=== PATIENT | male | born 1950 | race Native Hawaiian/Other Pacific Islander ===

== ENCOUNTER → 2017-09-03 | Outpatient (CLI) | payer BC ==
--- NOTE | 2017-09-04 09:18 | MR ---
EXAMINATION TYPE: MR shoulder LT wo con DATE OF EXAM: 09/03/2017 COMPARISON: NONE HISTORY: 67-year-old male with left Shoulder Pain with Limited ROM X6 months TECHNIQUE: Multiplanar, multisequence imaging of the left shoulder is performed without contrast. FINDINGS: The intracapsular portion of the long head biceps tendon is not visualized and is not evaluated. The extracapsular portion is seen from the level of the lower bicipital groove. The majority of the subscapularis tendon appears torn. The inferior third fibers are heterogeneous, t hickened, but present. Mild to moderate fatty infiltration of the subscapularis muscle belly. There is moderate to severe degenerative joint space narrowing with marginal spurring and capsular hy pertrophy at the acromioclavicular joint. There is abutment of the humeral head with the undersurface of the acromion without any evidence for stress fracture at this time. There is a massive full thickness tear involving the entire supraspinatus and infraspinatus tendons. Stump is retracted variably with some of the supraspinatus tendon fibers retracted back by 6 cm to th e level of the superior glenoid but some of the infraspinatus tendon fibers retracted even more media lly to the level of the scapular neck approximately 7 cm. Moderate fatty infiltration of the supraspinatus muscle belly and more moderate to severe fatty infil tration of the infraspinatus muscle belly. There is also fatty atrophy of the teres minor. No mass lesion identified in the quadrilateral space. There is a moderate-sized glenohumeral joint effusion extending into the superior subscapularis reces s. Degenerative spurring is present in the glenohumeral joint with mild cartilage thinning and irregu larity along the superior glenoid and inferior humeral head. No Hill-Sachs deformity or os acromiale. No suspicious bone marrow replacement. IMPRESSION: 1. Massive full thickness rotator cuff tears of the entire supraspinatus and infraspinatus tendons. V ariable retraction measuring up to 7 cm back to the scapular neck. A significant portion of the subsc apularis tendon is also involved with tendinotic but intact inferior third fibers. 2. Mild to moderate fatty atrophy of the subscapularis muscle, moderate involving the supraspinatus m uscle, and moderate to severe of the infraspinatus muscle. 3. Additional fatty atrophy of the teres minor could reflect tear to involve the teres minor as well or more likely quadrilateral space syndrome as some attaching fibers seen to be present. 4. Secondary glenohumeral joint instability with very early changes of rotator cuff arthropathy. 5. The intracapsular portion of the long head biceps tendon is not visualized and is not evaluated. It could be torn and scarred down in the bicipital groove. 6. Moderate to severe AC joint OA.
== END | disposition home or self-care (01) ==
LOC: RADMRIMAIN 15:23
PROVIDERS: ATTEND Family Medicine
DX: M67.912 Unspecified disorder of synovium and tendon, left shoulder (principal); M75.122 Complete rotator cuff tear or rupture of left shoulder, not specified as traumatic; M62.512 Muscle wasting and atrophy, not elsewhere classified, left shoulder; M12.812 Other specific arthropathies, not elsewhere classified, left shoulder

== ENCOUNTER 2021-10-12 19:14 | Inpatient (IN) | payer BC, MEDICARE ==
[2021-10-12] MEDS ORDERED: methylPREDNISolone SOD SUCCI 125 MG/2 ML VIAL IV STA (19:27)
[2021-10-12] MEDS ORDERED: MAGNESIUM SULFATE-D5W PMX 1 GM in DEXTROSE/WATER 1 100ML.BAG IVPB STA (19:27)
[2021-10-12] MEDS ORDERED: IPRATROPIUM-ALBUTEROL 3 ML NEB INHALATION STA (19:27)
--- NOTE | 2021-10-12 19:52 | XR ---
EXAMINATION TYPE: XR chest 1V portable DATE OF EXAM: 10/12/2021 COMPARISON: NONE HISTORY: Short of breath TECHNIQUE: Single view FINDINGS: There is a large left-sided pneumothorax. Trachea is midline. Right lung is clear. Heart si ze is normal. The mediastinum is normal. IMPRESSION: Large left-sided pneumothorax without evidence of tension. Exam was discussed with emergency room attending staff at 8:00 PM.
[2021-10-12] MEDS ORDERED: IPRATROPIUM-ALBUTEROL 3 ML NEB INHALATION ONE (20:00)
[2021-10-12] MEDS ORDERED: LIDOCAINE 1% INJ 10MG/ML (5 ML VIAL-PF) SQ STA (20:06)
[2021-10-12] MEDS ORDERED: KETAMINE 10 MG/ML 20 ML VIAL IV ONE (20:06)
--- NOTE | 2021-10-12 20:17 | XR ---
EXAMINATION TYPE: XR chest 1V DATE OF EXAM: 10/12/2021 COMPARISON: 10/12/2021 HISTORY: Pneumothorax TECHNIQUE: Single lateral view FINDINGS: Lateral view shows normal heart size. No pleural fluid seen. I do not see definite anterior pneumothorax over the superior lung field. IMPRESSION: No definite anterior pneumothorax in the left upper lobe region.
[2021-10-12 20:37] LABS: INR 0.9 (<1.2); Prothrombin Time 10.2 sec (9.0-12.0)
[2021-10-12 20:39] LABS: Partial Thromboplastin Time 19.3 sec (22.0-30.0)
[2021-10-12] MEDS ORDERED: HYDROmorphone 1 MG/ML 1 ML SYRINGE IVP STA (21:11)
--- NOTE | 2021-10-12 21:18 | XR ---
EXAMINATION TYPE: XR chest 1V portable DATE OF EXAM: 10/12/2021 COMPARISON: Today HISTORY: Chest tube TECHNIQUE: Single view FINDINGS: There is left chest tube over the left lower lung field in good position. There is appears to be complete expansion of the left lung. There is soft tissue air on the left chest wall. Right jessi g is clear. Heart is normal. IMPRESSION: Complete clearing of the left-sided pneumothorax. There is some residual atelectasis left lower lobe.
[2021-10-12] MEDS ORDERED: NALOXONE 0.4 MG/ML 1 ML VIAL IV PRN (21:37)
--- NOTE | 2021-10-12 21:45 | ED ---
General Adult HPI - General Chief complaint: Shortness of Breath Stated complaint: ALEXA Time Seen by Provider: 10/12/21 19:15 Source: patient, EMS, RN notes reviewed, old records reviewed Mode of arrival: EMS Limitations: no limitations - History of Present Illness Initial comments: Patient is a 71-year-old male with past medical history remarkable for chemical pneumonitis, asthma who presents emergency Department complaining of a persistent asthma exacerbation. The last 3 weeks, patient has been having intermittent episodes of difficulty in breathing. States he does seem to be a consistent asthma exacerbation at this time. He is seen his primary care doctor and obtained breathing treatments, steroids, antibiotics without much improvement. Had additional worsening shortness of breath over the last 2-3 days which can't get him to call EMS and presents emergency department today for evaluation. He has not yet obtained a chest x-ray over this last few weeks. Denies any fevers, chills. Endorses a nonproductive cough. Denies nausea or vo miting. Denies upper respiratory symptoms. Presents for further evaluation of this time. - Related Data Home Medications Medication Instructions Recorded Confirmed ALPRAZolam [Xanax] 0.5 mg PO TID PRN 10/12/21 10/12/21 Azithromycin [Zithromax Z-pack (6 See Taper PO DIRECTED 10/12/21 10/12/21 tabs)] Hydroxyurea [Hydrea] 500 mg PO BID 10/12/21 10/12/21 Ipratropium/Albuter 20-100Mcg 1 puff INHALATION RT-QID 10/12/21 10/12/21 [Combivent Respimat 20-100Mcg Inhaler] Tamsulosin HCl [Flomax] 0.8 mg PO DAILY 10/12/21 10/12/21 Allergies Allergy/AdvReac Type Severity Reaction Status Date / Time No Known Allergies Allergy Verified 10/12/21 21:44 Review of Systems ROS Statement: Those systems with pertinent positive or pertinent negative responses have been documented in the HPI. Review of Systems: CONST: Denies fever EYES: Denies blurry vision ENT: Denies nasal congestion C/V: Denies Chest pain RESP: Endorses shortness of breath GI: Denies abdominal pain : Denies dysuria SKIN: Denies rash. MSK: Denies joint pain. NEURO: Denies headache ROS Other: All systems not noted in ROS Statement are negative. Past Medical History Past Medical History: Asthma History of Any Multi-Drug Resistant Organisms: None Reported Past Surgical History: No Surgical Hx Reported Past Psychological History: Anxiety Smoking Status: Former smoker Past Alcohol Use History: Occasional Past Drug Use History: None Reported General Exam - General Exam Comments Initial Comments: General: Appears in mild respiratory distress. HEAD: Normal with no signs of head trauma. EYES: PERRLA, EOMI, conjunctiva normal, no discharge. ENT: Hearing grossly intact, normal oropharynx. RESPIRATORY: Bilateral end expiratory wheezing. Reduced breath sounds in the left lower lung field. Mild increased work of breathing. C/V: Mild tachycardia. S1 and S2 auscultated. Peripheral pulses 2+ and intact throughout. ABD: Abd is soft, nontender, nondistended EXT: Normal range of motion, no obvious deformity SKIN: No rashes or lesions observed on exposed skin. NEURO: Alert and oriented 4. No focal deficits. Limitations: no limitations Course Vital Signs 10/12/21 10/12/21 10/12/21 19:19 20:20 20:34 Temperature 98.6 F Pulse Rate 114 H 104 H 103 H Respiratory 24 Rate Blood Pressure 127/102 O2 Sat by Pulse 96 Oximetry 10/12/21 10/12/21 10/12/21 20:35 20:40 20:45 Temperature Pulse Rate 102 H 102 H Respiratory 26 H 18 18 Rate Blood Pressure 151/99 160/109 168/122 O2 Sat by Pulse 98 100 98 Oximetry 10/12/21 10/12/21 10/12/21 20:50 21:00 21:05 Temperature Pulse Rate 102 H 99 98 Respiratory 18 22 Rate Blood Pressure 138/99 146/100 149/97 O2 Sat by Pulse 99 98 99 Oximetry 10/12/21 10/12/21 10/12/21 21:10 21:25 21:40 Temperature Pulse Rate 103 H 85 85 Respiratory 16 16 16 Rate Blood Pressure 154/77 114/78 130/75 O2 Sat by Pulse 100 95 98 Oximetry Procedures - [place] Protocol (Time Out) Procedure Performed:: Chest tube insertion with moderate sedation Performing Provider: Ibrahima Aceves Nurse: Jose Ramon Bhakta Respiratory Therapist: Danika Marc Patient Identification (2 identifiers required): Chart, Verbal, Arm Band Patient/Legal Assembler Unit has Confirmed: Identity, Procedure, Consent - Chest Tube Insertion Consent Obtained: written consent Side of Procedure: left Indication: Pneumothorax Placed on monitor/pulse oximetry: Yes Site Prep: Chloroprep, Sterile Drape Applied Local Anesthesia: Lidocaine 1% Insertion Site: 5th Intercostal Space, Midaxillary Scalpel: #10 Open into Pleural Space Using: Izzy Clamp Tube Size (British): 32 Returns: Air Sutured in Place: Yes Type of Suture: Nylon Dressing Applied: Petroleum Gauze, 4x4, Tape Attached to Suction: Yes Type of Suction: Pleuravac Repeat X-ray Results: Lung Inflated Patient Tolerated Procedure: well Complications: Pain - Procedural Sedation Procedural Sedation Start Time: 20:35 Procedural Sedation Stop Time: 21:05 Indications: other (chest tube insertion) ASA Class: I Mallampati Airway Score: 2 Preparation: color television console monitor applied, pulse oximeter, capnometry used, supplemental O2 applied, suction/airway equipment at bedside Ketamine: IV Ketamine Dose: 60 Complications: none Patient Tolerated Procedure: well Medical Decision Making - Medical Decision Making Based on the patient's presentation and physical exam, I'm suspicious of acute asthma exacerbation. Cannot rule out other cardiopulmonary etiology at this time. We will obtain a chest x-ray. Initially called for BiPAP and respiratory therapy to administer reading treatments. However on chest x-ray, patient does have what appears to be a spontaneous left pneumothorax. BiPAP was canceled. He'll still be administered IV Solu-Medrol, breathing treatment. I discussed the finding on the chest x-ray with the patient. He expressed understanding. He will require a chest tube at this time. There appears to be located inferiorly in the chest, over we will obtain a lateral x-ray to see if there is a pocket the superior anterior portion to place a thoravent. Based on the x- ray, there is not a [facility] Therefore patient will require a traditional left-sided chest tube. Basic labs will be obtained as well as influenza and Covid swabs. Screening EKG will be obtained, which showed sinus tachycardia without any ischemic process. Patient was moved to a trauma bay. At this time, we will place the left side chest tube. Patient will be also given procedural sedation with ketamine. Patient consented both treatments. Respiratory therapy was present for about dry. The procedure. Patient chandue rated the procedure well. A successful placement of left-sided chest. The CT additional procedure note for further details. Follow-up x-ray shows reexpansion the left lung. Chest tube was placed to wall suction via thoravent. There was a small air leak following placement. Patient's laboratory studies returned and were remarkable for mild leukocytosis of 12. Covid employer negative. Remainder the labs are unremarkable. I consulted cardiothoracic surgery, Dr. Nur and spoke with them on the phone. He was in agreement this plan. I spoke with the admitting team under Dr. Pineda who was in agreement this plan. [facility] is covering for Dr. Barclay at this time. After the patient. Vital signs are within normal limits. Respirations are improved. He was placed on pain medication. He'll be admitted to stepdown in stable condition. He was in agreement this plan. We will continue treatment with IV steroids as well as breathing treatments. - Lab Data Result diagrams: 10/12/21 21:32 Lab Results 10/12/21 10/12/21 10/12/21 Range/Units 20:06 21:32 21:32 PT 10.2 (9.0-12.0) sec INR 0.9 (<1.2) APTT 19.3 L (22.0-30.0) sec Sodium (137-145) mmol/L Potassium (3.5-5.1) mmol/L Chloride (98-107) mmol/L Carbon Dioxide (22-30) mmol/L Anion Gap mmol/L BUN (9-20) mg/dL Creatinine (0.66-1.25) mg/dL Est GFR (CKD-EPI)AfAm (>60 ml/min/1.73 sqM) Est GFR (CKD-EPI)NonAf (>60 ml/min/1.73 sqM) Glucose (74-99) mg/dL Calcium (8.4-10.2) mg/dL Total Bilirubin (0.2-1.3) mg/dL AST (17-59) U/L ALT (4-49) U/L Alkaline Phosphatase (38-126) U/L Total Protein (6.3-8.2) g/dL Albumin (3.5-5.0) g/dL Coronavirus (PCR) Not Detected (Not Detectd) Influenza Type A RNA Not Detected (Not Detectd) Influenza Type B (PCR) Not Detected (Not Detectd) 10/12/21 Range/Units 21:32 PT (9.0-12.0) sec INR (<1.2) APTT (22.0-30.0) sec Sodium 138 (137-145) mmol/L Potassium 4.4 (3.5-5.1) mmol/L Chloride 103 (98-107) mmol/L Carbon Dioxide 27 (22-30) mmol/L Anion Gap 8 mmol/L BUN 15 (9-20) mg/dL Creatinine 0.66 (0.66-1.25) mg/dL Est GFR (CKD-EPI)AfAm >90 (>60 ml/min/1.73 sqM) Est GFR (CKD-EPI)NonAf >90 (>60 ml/min/1.73 sqM) Glucose 123 H (74-99) mg/dL Calcium 8.5 (8.4-10.2) mg/dL Total Bilirubin 0.7 (0.2-1.3) mg/dL AST 21 (17-59) U/L ALT 23 (4-49) U/L Alkaline Phosphatase 73 (38-126) U/L Total Protein 6.8 (6.3-8.2) g/dL Albumin 3.9 (3.5-5.0) g/dL Coronavirus (PCR) (Not Detectd) Influenza Type A RNA (Not Detectd) Influenza Type B (PCR) (Not Detectd) - EKG Data -: EKG Interpreted by Me EKG Comments: 12-lead Electrocardiogram Interpretation Note EKG was reviewed and interpreted by myself. 12-lead ECG performed at 1934 is interpreted by me as revealing normal sinus rhythm at a rate of 113 beats per minute. [place] is normal. [place] interval is 118 ms, QRS duration is 87 ms, QTc is 381 ms.. There were no ST or T wave abnormalities to suggest myocardial ischemia or injury. R wave progression across the precordium was satisfactory. By my interpretation this EKG is non-diagnostic for acute ischemia. There is baseline artifact in lead V6. Disposition Clinical Impression: Asthma exacerbation, Spontaneous pneumothorax, Chest tube in place Disposition: ADMITTED IP TO THIS HOSP Condition: Stable Referrals: Elan Barclay MD [Primary Care Provider] - 1-2 days Time of Disposition: 21:50
[2021-10-12 21:49] LABS: ALT 23 U/L (4-49); AST 21 U/L (17-59); African American GFR (CKD) >90 (>60 ml/min/1.73 sqM); Albumin 3.9 g/dL (3.5-5.0); Alkaline Phosphatase 73 U/L (38-126); Anion Gap 8 mmol/L; Blood Urea Nitrogen 15 mg/dL (9-20); Calcium 8.5 mg/dL (8.4-10.2); Carbon Dioxide 27 mmol/L (22-30); Chloride 103 mmol/L (98-107); Glucose 123 mg/dL (74-99); Non-African American GFR(CKD) >90 (>60 ml/min/1.73 sqM); Potassium 4.4 mmol/L (3.5-5.1); Sodium 138 mmol/L (137-145); Total Bilirubin 0.7 mg/dL (0.2-1.3); Total Protein 6.8 g/dL (6.3-8.2)
[2021-10-12 21:57] LABS: Basophils % (A) 0 %; Eosinophils # (A) 0.1 k/uL (0-0.7); Eosinophils % (A) 1 %; HCT 47.9 % (39.0-53.0); HGB 15.8 gm/dL (13.0-17.5); Lymphocytes # (A) 1.3 k/uL (1.0-4.8); Lymphocytes % (A) 11 %; MCHC 32.9 g/dL (31.0-37.0); MCV 112.5 fL (80.0-100.0); Macrocytosis Marked; Mean Platelet Volume 7.8; Monocytes # (A) 1.1 k/uL (0-1.0); Monocytes % (A) 9 %; Neutrophils # (A) 9.3 k/uL (1.3-7.7); Neutrophils % (A) 78 %; Platelet Count 513 k/uL (150-450); RBC 4.26 m/uL (4.30-5.90); RDW 13.9 % (11.5-15.5)
[2021-10-12] MEDS ORDERED: methocarbamoL 750 MG TAB PO PRN (22:12)
[2021-10-12] MEDS: HYDROmorphone 1 MG/ML 1 ML SYRINGE IVP PRN (23:26)
[2021-10-12 23:31] LABS: Anisocytosis (M) Present
[2021-10-12] MEDS: IPRATROPIUM-ALBUTEROL 3 ML NEB INHALATION SCH (23:36)
[2021-10-13] MEDS: methylPREDNISolone SOD SUCCI 40 MG/ML 1 ML VIAL IV SCH ×4 (00:43→17:27)
[2021-10-13] MEDS ORDERED: HYDROmorphone 1 MG/ML 1 ML SYRINGE IVP STA (02:02)
[2021-10-13] MEDS: IPRATROPIUM-ALBUTEROL 3 ML NEB INHALATION SCH ×6 (03:31→23:20)
[2021-10-13 06:28] LABS: African American GFR (CKD) >90 (>60 ml/min/1.73 sqM); Anion Gap 9 mmol/L; Blood Urea Nitrogen 15 mg/dL (9-20); Calcium 8.6 mg/dL (8.4-10.2); Carbon Dioxide 25 mmol/L (22-30); Chloride 100 mmol/L (98-107); Glucose 194 mg/dL (74-99); Non-African American GFR(CKD) >90 (>60 ml/min/1.73 sqM); Potassium 5.1 mmol/L (3.5-5.1); Sodium 134 mmol/L (137-145)
[2021-10-13 06:34] LABS: Basophils % (A) 0 %; Eosinophils % (A) 0 %; HCT 47.9 % (39.0-53.0); HGB 15.2 gm/dL (13.0-17.5); Lymphocytes # (A) 0.3 k/uL (1.0-4.8); Lymphocytes % (A) 2 %; MCH 36.3 pg (25.0-35.0); MCHC 31.7 g/dL (31.0-37.0); MCV 114.5 fL (80.0-100.0); Mean Platelet Volume 7.2; Monocytes # (A) 0.2 k/uL (0-1.0); Monocytes % (A) 2 %; Neutrophils # (A) 14.2 k/uL (1.3-7.7); Neutrophils % (A) 96 %; Platelet Count 563 k/uL (150-450); RBC 4.18 m/uL (4.30-5.90); RDW 13.8 % (11.5-15.5); WBC 14.8 k/uL (3.8-10.6)
[2021-10-13 06:38] LABS: Macrocytosis Marked
[2021-10-13] MEDS: HYDROmorphone 1 MG/ML 1 ML SYRINGE IVP PRN ×4 (07:56→22:06)
--- NOTE | 2021-10-13 08:06 | XR ---
EXAMINATION TYPE: XR chest 1V portable DATE OF EXAM: 10/13/2021 COMPARISON: 10/04/2021 INDICATION: Pneumothorax TECHNIQUE: Single frontal view of the chest is obtained. FINDINGS: The heart size is normal. The pulmonary vasculature is normal. Patchy infiltrates in the left lung. Subcutaneous air is present on the left is slightly diminished f rom comparison. Chest tube has been pulled back with the tip within the mid left lung field. Small ap ical pneumothorax versus subcutaneous emphysema is difficult to exclude IMPRESSION: 1. Minimal right apical pneumothorax not excluded. This may be artifact from overlying subcutaneous e mphysema. Follow-up is recommended. 2. Chest tube pulled back with tip within the mid left lung.. 3. Worsening patchy infiltrate at the left lung
--- NOTE | 2021-10-13 08:54 | P.GSCN ---
History of Present Illness Consult date: 10/13/21 Reason for Consult: Left-sided spontaneous pneumothorax Requesting physician: Ibrahima Aceves History of present illness: This is a 71-year-old gentleman who follows on an outpatient basis with Dr. Barclay for primary care, Dr. XIANG Gore for pulmonology, and Dr. Carmen for hematology. He has a previous medical history of asthma, thrombocythemia, BPH, and previous tobacco dependence. Apparently he has had shortness of breath for approximately 3 weeks which he attributed to his asthma. He did see his software engineer developer and was prescribed antibiotics, steroids, and updrafts. Unfortunately there has been no improvement and over the last few days he has felt significantly worse. He presented to [facility] emergency room last night for complaints of the same. He denies any fever, chills, recent sick contacts. WBC was 12.0, coronavirus was negative. Chest x-ray demonstrated large basilar left-sided pneumothorax. Pleural chest tube was placed by the emergency room physicians with re-expansion of the left lung. This chest tube was placed to continuous wall suction. He was to be admitted for further mo nitoring with consultation placed to cardiothoracic surgery for chest tube management. Review of Systems Review of systems was completed and was negative except as noted - Respiratory Reports as per HPI, Reports dyspnea Past Medical History Past Medical History: Asthma, Prostate Disorder Additional Past Medical History / Comment(s): Thrombocythemia History of Any Multi-Drug Resistant Organisms: None Reported Past Surgical History: No Surgical Hx Reported Past Psychological History: Anxiety Smoking Status: Former smoker Past Alcohol Use History: Occasional Past Drug Use History: None Reported Additional History: Quit smoking 40 years ago - Past Family History Mother Family Medical History: No Reported History Additional Family Medical History / Comment(s): of old age Father Family Medical History: Diabetes Mellitus Brother(s) Family Medical History: Coronary Artery Disease (CAD) Additional Family Medical History / Comment(s): Brother who was diagnosed with CAD and an early age and in his early 60s from CAD Medications and Allergies Home Medications Medication Instructions Recorded Confirmed Type ALPRAZolam [Xanax] 0.5 mg PO TID PRN 10/12/21 10/12/21 History Azithromycin [Zithromax Z-pack (6 See Taper PO DIRECTED 10/12/21 10/12/21 History tabs)] Hydroxyurea [Hydrea] 500 mg PO BID 10/12/21 10/12/21 History Ipratropium/Albuter 20-100Mcg 1 puff INHALATION RT-QID 10/12/21 10/12/21 History [Combivent Respimat 20-100Mcg Inhaler] Tamsulosin HCl [Flomax] 0.8 mg PO DAILY 10/12/21 10/12/21 History Allergies Allergy/AdvReac Type Severity Reaction Status Date / Time No Known Allergies Allergy Verified 10/12/21 21:44 Surgical - Exam Vital Signs Temp Pulse Resp BP Pulse Ox 98.6 F 114 H 24 127/102 96 10/12/21 19:19 10/12/21 19:19 10/12/21 19:19 10/12/21 19:19 10/12/21 19:19 CONSTITUTIONAL: Awake and alert, appears comfortable, cooperative, well- developed, well-nourished, no pain, no acute distress although breathing is slightly labored EYES: Pupils equal, round, reactive to light, normal ocular movement ENT: Moist mucous membranes without oral lesions present NECK: No masses, no bruits, trachea midline RESPIRATORY: Lungs sounds diminished with expiratory wheezes present on the left. Respirations even, slightly labored. Currently on 3 L nasal cannula with oxygen saturation 93%. Strong nonproductive cough. No chest wall deformities. No clubbing or cyanosis present. Left-sided pleural chest tube present to continuous wall suction, no air leak present CARDIOVASCULAR: S1, S2 present. Regular rate and rhythm, sinus rhythm on telemetry. Palpable peripheral pulses bilaterally. No edema present. No calf pain or tenderness noted. GASTROINTESTINAL: Abdomen soft, nontender, nondistended without masses or organomegaly noted. There is no rebound or guarding present. Active bowel sounds present 4 quadrants. GENITOURINARY: Deferred INTEGUMENTARY: Skin is warm and dry with evidence of good perfusion. NEUROLOGIC: Cranial nerves II through XII intact, normal coordination, no obvious motor or sensory deficits, speech is normal MUSKULOSKELETAL: Able to move all extremities, strength equal bilaterally, normal posture PSYCHIATRIC: Alert and oriented to person place and time, appropriate affect, intact judgment and insight Results - Labs 10/13/21 05:37 10/13/21 05:37 Abnormal Lab Results - Last 24 Hours (Table) 10/12/21 10/12/21 10/12/21 Range/Units 20:06 20:06 21:32 WBC 12.0 H (3.8-10.6) k/uL RBC 4.26 L (4.30-5.90) m/uL MCV 112.5 H (80.0-100.0) fL MCH 37.0 H (25.0-35.0) pg Plt Count 513 H (150-450) k/uL Neutrophils # 9.3 H (1.3-7.7) k/uL Lymphocytes # (1.0-4.8) k/uL Monocytes # 1.1 H (0-1.0) k/uL Macrocytosis Marked A APTT 19.3 L (22.0-30.0) sec Sodium (137-145) mmol/L Creatinine (0.66-1.25) mg/dL Glucose 123 H (74-99) mg/dL 10/13/21 10/13/21 Range/Units 05:37 05:37 WBC 14.8 H (3.8-10.6) k/uL RBC 4.18 L (4.30-5.90) m/uL MCV 114.5 H (80.0-100.0) fL MCH 36.3 H (25.0-35.0) pg Plt Count 563 H (150-450) k/uL Neutrophils # 14.2 H (1.3-7.7) k/uL Lymphocytes # 0.3 L (1.0-4.8) k/uL Monocytes # (0-1.0) k/uL Macrocytosis Marked A APTT (22.0-30.0) sec Sodium 134 L (137-145) mmol/L Creatinine 0.53 L (0.66-1.25) mg/dL Glucose 194 H (74-99) mg/dL Diabetes panel 10/12/21 10/13/21 Range/Units 21:32 05:37 Sodium 138 134 L (137-145) mmol/L Potassium 4.4 5.1 (3.5-5.1) mmol/L Chloride 103 100 (98-107) mmol/L Carbon Dioxide 27 25 (22-30) mmol/L BUN 15 15 (9-20) mg/dL Creatinine 0.66 0.53 L (0.66-1.25) mg/dL Glucose 123 H 194 H (74-99) mg/dL Calcium 8.5 8.6 (8.4-10.2) mg/dL AST 21 (17-59) U/L ALT 23 (4-49) U/L Alkaline Phosphatase 73 (38-126) U/L Total Protein 6.8 (6.3-8.2) g/dL Albumin 3.9 (3.5-5.0) g/dL Calcium panel 10/12/21 10/13/21 Range/Units 21:32 05:37 Calcium 8.5 8.6 (8.4-10.2) mg/dL Albumin 3.9 (3.5-5.0) g/dL Pituitary panel 10/12/21 10/13/21 Range/Units 21:32 05:37 Sodium 138 134 L (137-145) mmol/L Potassium 4.4 5.1 (3.5-5.1) mmol/L Chloride 103 100 (98-107) mmol/L Carbon Dioxide 27 25 (22-30) mmol/L BUN 15 15 (9-20) mg/dL Creatinine 0.66 0.53 L (0.66-1.25) mg/dL Glucose 123 H 194 H (74-99) mg/dL Calcium 8.5 8.6 (8.4-10.2) mg/dL Adrenal panel 10/12/21 10/13/21 Range/Units 21:32 05:37 Sodium 138 134 L (137-145) mmol/L Potassium 4.4 5.1 (3.5-5.1) mmol/L Chloride 103 100 (98-107) mmol/L Carbon Dioxide 27 25 (22-30) mmol/L BUN 15 15 (9-20) mg/dL Creatinine 0.66 0.53 L (0.66-1.25) mg/dL Glucose 123 H 194 H (74-99) mg/dL Calcium 8.5 8.6 (8.4-10.2) mg/dL Total Bilirubin 0.7 (0.2-1.3) mg/dL AST 21 (17-59) U/L ALT 23 (4-49) U/L Alkaline Phosphatase 73 (38-126) U/L Total Protein 6.8 (6.3-8.2) g/dL Albumin 3.9 (3.5-5.0) g/dL - Imaging Chest x-ray: report reviewed, image reviewed Assessment and Plan Assessment: 1. Spontaneous pneumothorax, first occurrence 2. Shortness of breath, secondary to above 3. History of asthma 4. Thrombocythemia 5. BPH 6. Previous tobacco dependence Plan: The patient was seen and examined in the emergency room sitting up in bed with slightly labored breathing although patient states it is much better than when he came in. He was eating breakfast and is at the bedside. Chart/diagnostics were reviewed. At this time we recommend continuing chest tub e to continuous wall suction. Will monitor for resolution of pneumothorax. Will transition to waterseal prior to chest tube removal. Incentive spirometry ordered and should be encouraged. Wean O2 as tolerated. Increase activity as tolerated. Will monitor daily x-rays. Medical management of other comorbidities per primary care service. Thank you for this consult. We will continue to follow along with this patient. I have personally seen and examined the patient, performed the documentation and the assessment and plan as written. Number of minutes spent on the visit: 30. Aziza Ospina NP-C
[2021-10-13] MEDS: ALPRAZolam 0.5 MG TAB PO PRN ×3 (09:39→20:55)
[2021-10-13] MEDS: HYDROXYUREA 500 MG CAP PO SCH ×2 (09:39→20:46)
[2021-10-13] MEDS: TAMSULOSIN 0.4 MG CAP.ER.24H PO SCH (09:40)
--- NOTE | 2021-10-13 11:35 | CT ---
EXAMINATION TYPE: CT chest wo con DATE OF EXAM: 10/13/2021 COMPARISON: Chest x-ray 10/13/2021 HISTORY: Left Pneumothorax CT DLP: 363.6 mGycm, Automated exposure control for dose reduction was used. CONTRAST: Performed injected with 0 mL of Isovue 300. TECHNIQUE: Axial images were obtained at 5 mm thick sections. Reconstructed images are reviewed on [facility] computer in the coronal plane. FINDINGS: Portion of the thyroid visualized is normal. There is an infiltrate within the left upper lung field. Very miniscule left apical pneumothorax may be present adjacent to the mediastinum. A bulla could be considered within the differential. Subcutan eous emphysema is present along the left lateral aspect. Left chest tube is in the mid left lung with the tip directed towards the hilum. No enlarged mediastinal or hilar adenopathy is evident. The ascending aorta diameter at the level o f the main pulmonary artery is 3.2 cm. The main pulmonary artery diameter at the bifurcation is 2.[address] sections are obtained through the upper abdomen. Cholelithiasis is noted. Right renal cyst s are present. IMPRESSIONS: 1. Miniscule left medial pneumothorax no sizable pneumothorax is evident on either side. Chest tube r emains in position. 2. Scattered infiltrates in the left lung gonzalez.
[2021-10-13 16:43] LABS: Glucose,Whole Blood 264 mg/dL (75-99)
[2021-10-13] MEDS: INSULIN ASPART (NovoLOG) 100 UNIT/ML VIAL SQ SCH ×2 (17:27→20:12)
--- NOTE | 2021-10-13 19:02 | P.HPIM ---
History of Present Illness H&P Date: 10/13/21 Chief Complaint: Difficulty breathing 71-year-old male with past medical history remarkable for chemical pneumonitis, asthma who presents emergency Department complaining of a persistent asthma exacerbation. The last 3 weeks, patient has been having intermittent episodes of difficulty in breathing. States he does seem to be a consistent asthma exacerbation at this time. He is seen his primary care doctor and obtained breathing treatments, steroids, antibiotics without much improvement. Had additional worsening shortness of breath over the last 2-3 days which can't get him to call EMS and presents emergency department today for evaluation. He has not yet obtained a chest x-ray over this last few weeks. Denies any fevers, chills. Endorses a nonproductive cough. Denies nausea or vomiting. Denies upper respiratory symptoms. Presents for further evaluation of this time. WBC was 12.0, coronavirus was negative. Chest x-ray demonstrated large basilar left-sided pneumothorax. Pleural chest tube was placed by the emergency room physicians with re-expansion of the left lung. This chest tube was placed to continuous wall suction. He was to be admitted for further monitoring with consultation placed to cardiothoracic surgery for chest tube management. Review of Systems REVIEW OF SYSTEMS: CONSTITUTIONAL: No fever, no malaise, no fatigue. HEENT: No recent visual problems or hearing problems. Denied any sore throat. CARDIOVASCULAR: No chest pain, orthopnea, PND, no palpitations, no syncope. PULMONARY: shortness of breath, no cough, no hemoptysis. GASTROINTESTINAL: No diarrhea, no nausea, no vomiting, no abdominal pain. NEUROLOGICAL: No headaches, no weakness, no numbness. HEMATOLOGICAL: Denies any bleeding or petechiae. GENITOURINARY: Denies any burning micturition, frequency, or urgency. MUSCULOSKELETAL/RHEUMATOLOGICAL: Denies any joint pain, swelling, or any muscle pain. ENDOCRINE: Denies any polyuria or polydipsia. The rest of the 14-point review of systems is negative. Past Medical History Past Medical History: Asthma, Prostate Disorder Additional Past Medical History / Comment(s): Thrombocythemia History of Any Multi-Drug Resistant Organisms: None Reported Past Surgical History: No Surgical Hx Reported Past Anesthesia/Blood Transfusion Reactions: No Reported Reaction Past Psychological History: Anxiety Smoking Status: Former smoker Past Alcohol Use History: Occasional Past Drug Use History: None Reported - Past Family History Mother Family Medical History: No Reported History Additional Family Medical History / Comment(s): of old age Father Family Medical History: Diabetes Mellitus Brother(s) Family Medical History: Coronary Artery Disease (CAD) Additional Family Medical History / Comment(s): Brother who was diagnosed with CAD and an early age and in his early 60s from CAD Medications and Allergies Home Medications Medication Instructions Recorded Confirmed Type ALPRAZolam [Xanax] 0.5 mg PO TID PRN 10/12/21 10/12/21 History Azithromycin [Zithromax Z-pack (6 See Taper PO DIRECTED 10/12/21 10/12/21 History tabs)] Hydroxyurea [Hydrea] 500 mg PO BID 10/12/21 10/12/21 History Ipratropium/Albuter 20-100Mcg 1 puff INHALATION RT-QID 10/12/21 10/12/21 History [Combivent Respimat 20-100Mcg Inhaler] Tamsulosin HCl [Flomax] 0.8 mg PO DAILY 10/12/21 10/12/21 History Allergies Allergy/AdvReac Type Severity Reaction Status Date / Time No Known Allergies Allergy Verified 10/12/21 21:44 Physical Exam Vitals: Vital Signs Temp Pulse Pulse Resp BP BP Pulse Ox 10/13/21 08:07 110 H 10/13/21 08:00 98.5 F 111 H 16 144/95 96 10/13/21 07:52 108 H 10/13/21 04:00 97.0 F L 87 16 96 10/13/21 03:41 99 10/13/21 03:31 81 10/13/21 03:00 88 127/87 10/13/21 02:00 95 126/91 10/12/21 23:49 90 10/12/21 23:36 90 10/12/21 23:25 86 16 133/83 98 10/12/21 22:55 86 18 128/94 98 10/12/21 22:25 86 20 112/94 100 10/12/21 21:55 85 20 116/89 100 10/12/21 21:40 85 16 130/75 98 10/12/21 21:25 85 16 114/78 95 10/12/21 21:10 103 H 16 154/77 100 10/12/21 21:05 98 22 149/97 99 10/12/21 21:00 99 18 146/100 98 10/12/21 20:50 102 H 138/99 99 10/12/21 20:45 102 H 18 168/122 98 10/12/21 20:40 18 160/109 100 10/12/21 20:35 102 H 26 H 151/99 98 10/12/21 20:34 103 H 10/12/21 20:20 104 H 10/12/21 19:19 98.6 F 114 H 24 127/102 96 Intake and Output 10/12/21 10/13/21 10/13/21 22:59 06:59 14:59 Output Total 25 Balance -25 Output: Chest Tube Drainage 25 Chest Tube Left Lateral 25 Chest Other: Voiding Method Urinal Weight 62 kg PHYSICAL EXAMINATION: GENERAL: The patient is alert and oriented x3, not in any acute distress. Well developed, well nourished. HEENT: Pupils are round and equally reacting to light. EOMI. No scleral icterus. No conjunctival pallor. Normocephalic, atraumatic. No pharyngeal erythema. No thyromegaly. CARDIOVASCULAR: S1 and S2 present. No murmurs, rubs, or gallops. PULMONARY: Markedly decreased breath sounds on left hemithorax. ABDOMEN: Soft, nontender, nondistended, normoactive bowel sounds. No palpable organomegaly. MUSCULOSKELETAL: No joint swelling or deformity. EXTREMITIES: No cyanosis, clubbing, or pedal edema. NEUROLOGICAL: Gross neurological examination did not reveal any focal deficits. SKIN: No rashes. Results CBC & Chem 7: 10/13/21 05:37 10/13/21 05:37 Labs: Abnormal Lab Results - Last 24 Hours (Table) 10/12/21 10/12/21 10/12/21 Range/Units 20:06 20:06 21:32 WBC 12.0 H (3.8-10.6) k/uL RBC 4.26 L (4.30-5.90) m/uL MCV 112.5 H (80.0-100.0) fL MCH 37.0 H (25.0-35.0) pg Plt Count 513 H (150-450) k/uL Neutrophils # 9.3 H (1.3-7.7) k/uL Lymphocytes # (1.0-4.8) k/uL Monocytes # 1.1 H (0-1.0) k/uL Macrocytosis Marked A APTT 19.3 L (22.0-30.0) sec Sodium (137-145) mmol/L Creatinine (0.66-1.25) mg/dL Glucose 123 H (74-99) mg/dL 10/13/21 10/13/21 Range/Units 05:37 05:37 WBC 14.8 H (3.8-10.6) k/uL RBC 4.18 L (4.30-5.90) m/uL MCV 114.5 H (80.0-100.0) fL MCH 36.3 H (25.0-35.0) pg Plt Count 563 H (150-450) k/uL Neutrophils # 14.2 H (1.3-7.7) k/uL Lymphocytes # 0.3 L (1.0-4.8) k/uL Monocytes # (0-1.0) k/uL Macrocytosis Marked A APTT (22.0-30.0) sec Sodium 134 L (137-145) mmol/L Creatinine 0.53 L (0.66-1.25) mg/dL Glucose 194 H (74-99) mg/dL Thrombosis Risk Factor Assmnt - Choose All That Apply Any of the Below Risk Factors Present?: Yes Each Factor Represents 1 point: Medical pt on bed rest Other Risk Factors: Yes Each Risk Factor Represents 2 Points: Age 61-74 years Other congenital or acquired thrombophilia - If yes, enter type in comment: No (Thrombocytopenia) Thrombosis Risk Factor Assessment Total Risk Factor Score: 3 Thrombosis Risk Factor Assessment Level: Moderate Risk Assessment and Plan Assessment: 1. Spontaneous pneumothorax; first occurrence - Patient has been evaluated by thoracic surgery and underwent chest tube p lacement; currently chest tube is to continuous wall suction; after pneumothorax is resolved it will be transitioned to water seal prior to removal - Incentive spirometry is ordered and patient is encouraged - We will continue with O2 to keep oxygen saturation above 92% 2. History of asthma; not in exacerbation; continue with home therapy with Combivent 3. Thrombocythemia; continue with Hydrea 500 mg twice a day 4. BPH; Flomax 0.4 mg daily 5. Anxiety; Xanax 0.5 mg 3 times a day when necessary DVT prophylaxis; SCDs CODE STATUS; full code
[2021-10-13 20:12] LABS: Glucose,Whole Blood 130 mg/dL (75-99)
--- NOTE | 2021-10-13 21:48 | XR ---
EXAMINATION TYPE: XR chest 1V portable DATE OF EXAM: 10/13/2021 COMPARISON: Today HISTORY: Chest tube TECHNIQUE: FINDINGS: Heart is normal. There is some infiltrate in the left mid and lower lung field. There is co alescent density left mid lung field. There is extensive soft tissue air on the left lateral chest wa ll. No definite pneumothorax. No chest tube seen. There is some mild atelectasis right lung base. IMPRESSION: There is some mild atelectasis right lung base which appears new compared to exam 3 hours ago. There is infiltrate in the left lung slightly improved. No definite pneumothorax.
[2021-10-14] MEDS: methylPREDNISolone SOD SUCCI 40 MG/ML 1 ML VIAL IV SCH ×5 (00:12→23:47)
[2021-10-14] MEDS: IPRATROPIUM-ALBUTEROL 3 ML NEB INHALATION SCH ×6 (03:49→23:22)
[2021-10-14] MEDS: ALPRAZolam 0.5 MG TAB PO PRN ×3 (04:14→20:26)
[2021-10-14 06:16] LABS: Glucose,Whole Blood 164 mg/dL (75-99)
[2021-10-14] MEDS: INSULIN ASPART (NovoLOG) 100 UNIT/ML VIAL SQ SCH ×4 (06:24→20:26)
[2021-10-14 06:47] LABS: Basophils # (A) 0.1 k/uL (0-0.2); Basophils % (A) 1 %; Eosinophils # (A) 0.1 k/uL (0-0.7); Eosinophils % (A) 1 %; HGB 14.6 gm/dL (13.0-17.5); Lymphocytes # (A) 0.7 k/uL (1.0-4.8); Lymphocytes % (A) 5 %; MCH 36.5 pg (25.0-35.0); MCHC 31.8 g/dL (31.0-37.0); MCV 114.8 fL (80.0-100.0); Macrocytosis Marked; Mean Platelet Volume 7.2; Monocytes % (A) 7 %; Neutrophils # (A) 12.9 k/uL (1.3-7.7); Neutrophils % (A) 86 %; Platelet Count 564 k/uL (150-450); RDW 13.6 % (11.5-15.5); WBC 14.9 k/uL (3.8-10.6)
[2021-10-14 07:13] LABS: African American GFR (CKD) >90 (>60 ml/min/1.73 sqM); Anion Gap 4 mmol/L; Blood Urea Nitrogen 23 mg/dL (9-20); Calcium 8.8 mg/dL (8.4-10.2); Carbon Dioxide 32 mmol/L (22-30); Chloride 97 mmol/L (98-107); Glucose 165 mg/dL (74-99); Non-African American GFR(CKD) >90 (>60 ml/min/1.73 sqM); Potassium 5.5 mmol/L (3.5-5.1); Sodium 133 mmol/L (137-145)
--- NOTE | 2021-10-14 08:01 | P.PN ---
Subjective Progress Note Date: 10/14/21 Principal diagnosis: Spontaneous pneumothorax, first occurrence. History of asthma, thrombocythemia, BPH, previous tobacco dependence The patient was seen and examined this morning sitting up in bed on the cardiac stepdown unit in no acute distress. Apparently his chest tube was accidentally pulled out last night. Repeat CXR afterwards and this morning are stable. There is subcutaneous emphysema present which is inconsequential, and no significant pneumothorax seen on this morning's CXR. Patient still appears a bit shallow with his breathing but is working on incentive spirometry and achieving 2500 mL. No other new concerns. Objective - Vital Signs Vital signs: Vital Signs Temp 98.2 F 10/13/21 20:00 Pulse 84 10/14/21 07:41 Resp 18 10/14/21 04:00 BP 123/79 10/14/21 04:00 Pulse Ox 93 L 10/14/21 07:41 FiO2 Intake & Output 10/13/21 10/14/21 10/14/21 18:59 06:59 18:59 Intake Total 485 Output Total 221 600 Balance -221 -115 Weight 80.739 kg Intake: Oral 485 Output: Chest Tube Drainage 21 Chest Tube Left Lateral 21 Chest Urine 200 600 Other: Voiding Method Urinal Urinal # Voids 4 1 # Bowel Movements 1 - Exam CONSTITUTIONAL: Awake and alert, appears comfortable, cooperative, no pain, no acute distress RESPIRATORY: Lungs sounds diminished with expiratory wheezes present on the left. Respirations somewhat shallow, slightly labored. Currently on 4 L nasal cannula with oxygen saturation 93%. Strong nonproductive cough. CARDIOVASCULAR: S1, S2 present. Regular rate and rhythm, sinus rhythm on telemetry. Palpable peripheral pulses bilaterally. No edema present. No calf pain or tenderness noted. GASTROINTESTINAL: Abdomen soft, nontender, nondistended without masses or organomegaly noted. There is no rebound or guarding present. Active bowel sounds present 4 quadrants. GENITOURINARY: Continues to void INTEGUMENTARY: Skin is warm and dry with evidence of good perfusion. NEUROLOGIC: Cranial nerves II through XII intact, normal coordination, no obvious motor or sensory deficits, speech is normal MUSKULOSKELETAL: Able to move all extremities, strength equal bilaterally, normal posture PSYCHIATRIC: Alert and oriented to person place and time, appropriate affect, intact judgment and insight - Allied health notes Allied health notes reviewed: nursing - Labs CBC & Chem 7: 10/14/21 06:27 10/14/21 06:27 Labs: Abnormal Lab Results - Last 24 Hours (Table) 10/13/21 10/13/21 10/14/21 Range/Units 16:41 20:11 06:15 WBC (3.8-10.6) k/uL RBC (4.30-5.90) m/uL MCV (80.0-100.0) fL MCH (25.0-35.0) pg Plt Count (150-450) k/uL Neutrophils # (1.3-7.7) k/uL Lymphocytes # (1.0-4.8) k/uL Macrocytosis Sodium (137-145) mmol/L Potassium (3.5-5.1) mmol/L Chloride (98-107) mmol/L Carbon Dioxide (22-30) mmol/L BUN (9-20) mg/dL Glucose (74-99) mg/dL POC Glucose (mg/dL) 264 H 130 H 164 H (75-99) mg/dL 10/14/21 10/14/21 Range/Units 06:27 06:27 WBC 14.9 H (3.8-10.6) k/uL RBC 4.00 L (4.30-5.90) m/uL MCV 114.8 H (80.0-100.0) fL MCH 36.5 H (25.0-35.0) pg Plt Count 564 H (150-450) k/uL Neutrophils # 12.9 H (1.3-7.7) k/uL Lymphocytes # 0.7 L (1.0-4.8) k/uL Macrocytosis Marked A Sodium 133 L (137-145) mmol/L Potassium 5.5 H (3.5-5.1) mmol/L Chloride 97 L (98-107) mmol/L Carbon Dioxide 32 H (22-30) mmol/L BUN 23 H (9-20) mg/dL Glucose 165 H (74-99) mg/dL POC Glucose (mg/dL) (75-99) mg/dL Microbiology - Last 24 Hours (Table) 10/13/21 11:25 Sputum Culture - Preliminary Sputum - Imaging and Cardiology Chest x-ray: image reviewed Assessment and Plan Assessment: 1. Spontaneous pneumothorax, first occurrence, S/P chest tube placement by the ER physicians, with accidental removal 2. Shortness of breath, secondary to above 3. History of asthma 4. Thrombocythemia 5. BPH 6. Previous tobacco dependence Plan: 1. No surgical intervention planned at this time, although it was discussed with the patient and his that if a pneumothorax should recur on the same side we would offer surgery in the name of thoracoscopy with mechanical pleurodesis as he would be at high risk for continued spontaneous pneumothoraces 2. No need for replacement of chest tube 3. Wean oxygen as tolerated. Encourage incentive spirometry use 4. Increase activity as tolerated 5. CT scan reviewed 6. Medical management of other comorbidities per primary service 7. Will continue to see on an as needed basis
[2021-10-14] MEDS ORDERED: AMOXIC-POT CLAV 875-125MG 1 EACH TAB PO SCH (09:00)
[2021-10-14] MEDS: TAMSULOSIN 0.4 MG CAP.ER.24H PO SCH (09:10)
[2021-10-14] MEDS: HYDROXYUREA 500 MG CAP PO SCH ×2 (09:11→20:26)
--- NOTE | 2021-10-14 10:43 | XR ---
EXAMINATION TYPE: XR chest 1V portable DATE OF EXAM: 10/14/2021 COMPARISON: 10/13/2021 INDICATION: Left pneumothorax TECHNIQUE: Single frontal view of the chest is obtained. FINDINGS: The heart size is normal. The pulmonary vasculature is normal. There is an infiltrate in the left perihilar region. This appears unchanged from comparison. Moderate ly extensive subcutaneous emphysema is present on the left. No suspicious pneumothorax is identified at this time. Follow up exams can be performed as clinically indicated. IMPRESSION: 1. Left perihilar infiltrate appears stable from comparison. 2. Subcutaneous emphysema similar to prior exam. Pneumothorax is not identified this time. Follow-up is clinically indicated.
--- NOTE | 2021-10-14 11:06 | P.PN ---
Subjective 71-year-old male with past medical history remarkable for chemical pneumonitis, asthma who presents emergency Department complaining of a persistent asthma exacerbation. The last 3 weeks, patient has been having intermittent episodes of difficulty in breathing. States he does seem to be a consistent asthma exacerbation at this time. He is seen his primary care doctor and obtained breathing treatments, steroids, antibiotics without much improvement. Had additional worsening shortness of breath over the last 2-3 days which can't get him to call EMS and presents emergency department today for evaluation. He has not yet obtained a chest x-ray over this last few weeks. Denies any fevers, chills. Endorses a nonproductive cough. Denies nausea or vomiting. Denies upper respiratory symptoms. Presents for further evaluation of this time. WBC was 12.0, coronavirus was negative. Chest x-ray demonstrated large basilar left-sided pneumothorax. Pleural chest tube was placed by the emergency room physicians with re-expansion of the left lung. This chest tube was placed to continuous wall suction. He was to be admitted for further monitoring with consultation placed to cardiothoracic surgery for chest tube management. 10/14/2021, this is the first day I started taking care of the patient Today patient accidentally removed his left chest tube, his dyspnea is same, he is mildly dyspneic while he is standing up at bedside. No worsening shortness of breath or coughing. He has cough and mild limp. No chest pain. He does not need any pain medication. CT of the chest showed evidence of left upper lobe infiltrate with emphysema versus bulla, cardiothoracic surgery team on the case. Patient not on home oxygen and currently requiring 3-4 L/m to keep saturation in the 90s. Sodium 133 and potassium 5.5. Subjects on Zithromax and Solu-Medrol Patient States That He Follows with Dr. Gore As an Outpatient, Therefore Going to Consult Dr. Worley. Also We'll Add Insulin Sliding Scale. Objective - Vital Signs Vital signs: Vital Signs Temp 97.6 F 10/14/21 08:00 Pulse 91 10/14/21 08:00 Resp 19 10/14/21 08:00 BP 142/81 10/14/21 08:00 Pulse Ox 94 L 10/14/21 08:00 FiO2 Intake & Output 05/29/22 05/30/22 05/30/22 18:59 06:59 18:59 Intake Total 485 240 Output Total 221 600 Balance -221 -115 240 Weight 80.739 kg Intake: Oral 485 240 Output: Chest Tube Drainage 21 Chest Tube Left Lateral 21 Chest Urine 200 600 Other: Voiding Method Urinal Urinal # Voids 4 1 # Bowel Movements 1 - Exam GENERAL: The patient is alert and oriented x3, not in any acute distress. Well developed, well nourished. HEENT: Pupils are round and equally reacting to light. EOMI. No scleral icterus. No conjunctival pallor. Normocephalic, atraumatic. No pharyngeal erythema. No thyromegaly. CARDIOVASCULAR: S1 and S2 present. No murmurs, rubs, or gallops. -PULMONARY: Chest is clear to auscultation, bilateral scattered wheezing. Bilat eral crackles. Mild decreased breath sounds on the left side ABDOMEN: Soft, nontender, nondistended, normoactive bowel sounds. No palpable organomegaly. MUSCULOSKELETAL: No joint swelling or deformity. EXTREMITIES: No cyanosis, clubbing, or pedal edema. NEUROLOGICAL: Gross neurological examination did not reveal any focal deficits. SKIN: No rashes. no petechiae. - Labs CBC & Chem 7: 10/14/21 06:27 10/14/21 06:27 Labs: Abnormal Lab Results - Last 24 Hours (Table) 10/13/21 10/13/21 10/14/21 Range/Units 16:41 20:11 06:15 WBC (3.8-10.6) k/uL RBC (4.30-5.90) m/uL MCV (80.0-100.0) fL MCH (25.0-35.0) pg Plt Count (150-450) k/uL Neutrophils # (1.3-7.7) k/uL Lymphocytes # (1.0-4.8) k/uL Macrocytosis Sodium (137-145) mmol/L Potassium (3.5-5.1) mmol/L Chloride (98-107) mmol/L Carbon Dioxide (22-30) mmol/L BUN (9-20) mg/dL Glucose (74-99) mg/dL POC Glucose (mg/dL) 264 H 130 H 164 H (75-99) mg/dL 10/14/21 10/14/21 Range/Units 06:27 06:27 WBC 14.9 H (3.8-10.6) k/uL RBC 4.00 L (4.30-5.90) m/uL MCV 114.8 H (80.0-100.0) fL MCH 36.5 H (25.0-35.0) pg Plt Count 564 H (150-450) k/uL Neutrophils # 12.9 H (1.3-7.7) k/uL Lymphocytes # 0.7 L (1.0-4.8) k/uL Macrocytosis Marked A Sodium 133 L (137-145) mmol/L Potassium 5.5 H (3.5-5.1) mmol/L Chloride 97 L (98-107) mmol/L Carbon Dioxide 32 H (22-30) mmol/L BUN 23 H (9-20) mg/dL Glucose 165 H (74-99) mg/dL POC Glucose (mg/dL) (75-99) mg/dL Microbiology - Last 24 Hours (Table) 10/13/21 11:25 Sputum Culture - Preliminary Sputum Assessment and Plan Assessment: Continuous left pneumothorax Left upper lobe pneumonia Mild asthma exacerbation Leukocytosis, could be related to infection and reactive secondary to steroid effect. Mild hypoxic respiratory failure Plan: This is a pleasant 71 years old male who presents with pneumothorax, pneumonia and asthma. Cardiothoracic surgery team on the case. Start antibiotic ceftriaxone and Zithromax Continue with steroids Solu-Medrol 40 mg Pulmonary team consult with Dr. Worley. Labs and medication were reviewed.. Continue same treatment. Continue with symptomatic treatment. Resume home medication. Monitor lytes and vitals. DVT and GI prophylaxis. Further recommendationsas per clinical course of the patient DVT prophylaxis: Subcutaneous heparin GI Prophylaxis: Ppi Prognosis is guarded
[2021-10-14 11:23] LABS: Glucose,Whole Blood 137 mg/dL (75-99)
[2021-10-14] MEDS: AZITHROMYCIN 500 MG in SODIUM CHLORIDE 0.9% 250 ML IVPB SCH (14:35)
[2021-10-14 16:44] LABS: Glucose,Whole Blood 233 mg/dL (75-99)
[2021-10-14 20:08] LABS: Glucose,Whole Blood 144 mg/dL (75-99)
[2021-10-15] MEDS: IPRATROPIUM-ALBUTEROL 3 ML NEB INHALATION SCH ×6 (03:26→23:54)
[2021-10-15] MEDS: ALPRAZolam 0.5 MG TAB PO PRN ×3 (03:52→23:10)
[2021-10-15 06:08] LABS: Glucose,Whole Blood 181 mg/dL (75-99)
[2021-10-15] MEDS: methylPREDNISolone SOD SUCCI 40 MG/ML 1 ML VIAL IV SCH ×4 (06:44→23:09)
[2021-10-15] MEDS: INSULIN ASPART (NovoLOG) 100 UNIT/ML VIAL SQ SCH ×4 (06:45→21:35)
[2021-10-15] MEDS: TAMSULOSIN 0.4 MG CAP.ER.24H PO SCH (08:21)
[2021-10-15] MEDS: HYDROXYUREA 500 MG CAP PO SCH ×2 (08:22→21:36)
--- NOTE | 2021-10-15 08:43 | P.DS ---
Providers Date of admission: 10/12/21 21:37 Attending physician: Elan Barclay Consults: 10/12/21 21:38 Consult Physician Routine Consulting Provider: Crow Nur Consult Reason/Comments: Spontaneous Left pneumothorax, s/p chest tube Do you want consulting provider notified?: Already Contacted 10/14/21 08:47 Consult Physician Urgent Consulting Provider: Chandler Worley Consult Reason/Comments: pna, pneumothorax Do you want consulting provider notified?: Yes Primary care physician: Elan Barclay - Discharge Diagnosis(es) (1) Asthma exacerbation Current Visit: Yes Status: Acute (2) Spontaneous pneumothorax Current Visit: Yes Status: Acute Hospital Course: This discharge summary 68-year-old male essentially admitted for spontaneous 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 The patient had chest tube and was placed. The tube is actually pulled but the chest x-ray is stable. We will DC once cleared by pulmonary. The patient seems to be back to his normal baseline. Patient Condition at Discharge: Stable Plan - Discharge Summary Discharge Rx Participant: Yes New Discharge Prescriptions: No Action Ipratropium/Albuter 20-100Mcg [Combivent Respimat 20-100Mcg Inhaler] 1 puff INHALATION RT-QID Hydroxyurea [Hydrea] 500 mg PO BID Azithromycin [Zithromax Z-pack (6 tabs)] See Taper PO DIRECTED ALPRAZolam [Xanax] 0.5 mg PO TID PRN PRN Reason: Anxiety Tamsulosin HCl [Flomax] 0.8 mg PO DAILY Discharge Medication List ALPRAZolam [Xanax] 0.5 mg PO TID PRN 10/12/21 [History] Azithromycin [Zithromax Z-pack (6 tabs)] See Taper PO DIRECTED 10/12/21 [History] Hydroxyurea [Hydrea] 500 mg PO BID 10/12/21 [History] Ipratropium/Albuter 20-100Mcg [Combivent Respimat 20-100Mcg Inhaler] 1 puff INHALATION RT-QID 10/12/21 [History] Tamsulosin HCl [Flomax] 0.8 mg PO DAILY 10/12/21 [History] Follow up Appointment(s)/Referral(s): Elan Barclay MD [Primary Care Provider] - 3 Days Discharge Disposition: HOME SELF-CARE
--- NOTE | 2021-10-15 09:59 | P.CNPUL ---
History of Present Illness Consult date: 10/15/21 Reason for consult: dyspnea, cough, COPD, hypoxemia Chief complaint: Shortness of breath History of present illness: Patient is a 71-year-old male with end-stage lung disease secondary due to COPD with acute exacerbation few weeks ago has been short of breath for almost a month, patient has 2 courses of steroids on outpatient basis without significant resolution in symptoms came into the emergency department with increasing shortness of breath. Initial chest x-ray revealed large left-sided pneumothorax without evidence of tension, patient underwent emergent chest tube placement in emergency department With resolution of pneumothorax residue of subcutaneous emphysema was noted. Patient underwent computed tomography scan of the chest noted infiltrate in left upper lobe questionable apical pneumothorax noted versus air bolus stable chest tube. Patient however stepped on chest tube and pulled off accidentally, post x-ray no pneumothorax seen stable left perihilar infiltrate and subcu year, patient has a remote history of smoking quit about 30 years ago however has excessive dust and nonorganic fume exposure, by profession he is a steel welder. Review of Systems All systems: negative Past Medical History Past Medical History: Asthma, Prostate Disorder Additional Past Medical History / Comment(s): Thrombocythemia History of Any Multi-Drug Resistant Organisms: None Reported Past Surgical History: No Surgical Hx Reported Past Anesthesia/Blood Transfusion Reactions: No Reported Reaction Past Psychological History: Anxiety Smoking Status: Former smoker Past Alcohol Use History: Occasional Past Drug Use History: None Reported - Past Family History Mother Family Medical History: No Reported History Additional Family Medical History / Comment(s): of old age Father Family Medical History: Diabetes Mellitus Brother(s) Family Medical History: Coronary Artery Disease (CAD) Additional Family Medical History / Comment(s): Brother who was diagnosed with CAD and an early age and in his early 60s from CAD Medications and Allergies Home Medications Medication Instructions Recorded Confirmed Type ALPRAZolam [Xanax] 0.5 mg PO TID PRN 10/12/21 10/12/21 History Azithromycin [Zithromax Z-pack (6 See Taper PO DIRECTED 10/12/21 10/12/21 History tabs)] Hydroxyurea [Hydrea] 500 mg PO BID 10/12/21 10/12/21 History Ipratropium/Albuter 20-100Mcg 1 puff INHALATION RT-QID 10/12/21 10/12/21 History [Combivent Respimat 20-100Mcg Inhaler] Tamsulosin HCl [Flomax] 0.8 mg PO DAILY 10/12/21 10/12/21 History Allergies Allergy/AdvReac Type Severity Reaction Status Date / Time No Known Allergies Allergy Verified 10/12/21 21:44 Physical Exam Vitals: Vital Signs Temp Pulse Pulse Resp BP Pulse Ox 10/15/21 08:47 85 16 10/15/21 08:37 84 16 96 10/15/21 07:45 97.5 F L 76 25 H 129/80 95 10/15/21 04:00 102 H 20 129/85 90 L 10/15/21 03:38 101 H 10/15/21 03:28 88 10/15/21 00:00 101 H 16 125/81 93 L 10/14/21 23:36 92 10/14/21 23:24 90 10/14/21 20:45 83 10/14/21 20:34 82 10/14/21 20:00 97.9 F 92 16 143/83 92 L 10/14/21 16:03 80 10/14/21 16:00 97.8 F 87 17 131/73 93 L 10/14/21 15:51 84 10/14/21 14:00 85 18 10/14/21 11:56 97.7 F 85 18 138/77 94 L 10/14/21 11:24 78 10/14/21 11:08 82 Intake and Output 10/14/21 10/15/21 10/15/21 22:59 06:59 14:59 Intake Total 120 485 120 Balance 120 485 120 Intake: Oral 120 485 120 Other: Voiding Method Urinal Urinal # Voids 1 2 - Constitutional General appearance: average body habitus, disheveled - EENT Eyes: EOMI, PERRLA ENT: normal oropharynx Ears: bilateral: normal - Neck Carotids: bilateral: upstroke normal - Respiratory Respiratory: bilateral: CTA - Cardiovascular Rhythm: regular Heart sounds: normal: S1, S2 - Gastrointestinal General gastrointestinal: normal bowel sounds, soft - Integumentary Integumentary: normal, normal turgor - Neurologic Neurologic: CNII-XII intact - Musculoskeletal Musculoskeletal: gait normal, generalized weakness, strength equal bilaterally - Psychiatric Psychiatric: A&O x's 3, appropriate affect, intact judgment & insight Results - Laboratory Findings CBC and BMP: 10/14/21 06:27 10/14/21 06:27 PT/INR, D-dimer PT 10.2 sec (9.0-12.0) 10/12/21 20:06 INR 0.9 (<1.2) 10/12/21 20:06 Abnormal lab findings: Abnormal Labs 10/12/21 10/12/21 10/12/21 20:06 20:06 21:32 WBC 12.0 H RBC 4.26 L MCV 112.5 H MCH 37.0 H Plt Count 513 H Neutrophils # 9.3 H Lymphocytes # Monocytes # 1.1 H Macrocytosis Marked A APTT 19.3 L Sodium Potassium Chloride Carbon Dioxide BUN Creatinine Glucose 123 H POC Glucose (mg/dL) 10/13/21 10/13/21 10/13/21 05:37 05:37 16:41 WBC 14.8 H RBC 4.18 L MCV 114.5 H MCH 36.3 H Plt Count 563 H Neutrophils # 14.2 H Lymphocytes # 0.3 L Monocytes # Macrocytosis Marked A APTT Sodium 134 L Potassium Chloride Carbon Dioxide BUN Creatinine 0.53 L Glucose 194 H POC Glucose (mg/dL) 264 H 10/13/21 10/14/21 10/14/21 20:11 06:15 06:27 WBC 14.9 H RBC 4.00 L MCV 114.8 H MCH 36.5 H Plt Count 564 H Neutrophils # 12.9 H Lymphocytes # 0.7 L Monocytes # Macrocytosis Marked A APTT Sodium Potassium Chloride Carbon Dioxide BUN Creatinine Glucose POC Glucose (mg/dL) 130 H 164 H 10/14/21 10/14/21 10/14/21 06:27 11:22 16:42 WBC RBC MCV MCH Plt Count Neutrophils # Lymphocytes # Monocytes # Macrocytosis APTT Sodium 133 L Potassium 5.5 H Chloride 97 L Carbon Dioxide 32 H BUN 23 H Creatinine Glucose 165 H POC Glucose (mg/dL) 137 H 233 H 10/14/21 10/15/21 20:07 06:06 WBC RBC MCV MCH Plt Count Neutrophils # Lymphocytes # Monocytes # Macrocytosis APTT Sodium Potassium Chloride Carbon Dioxide BUN Creatinine Glucose POC Glucose (mg/dL) 144 H 181 H - Diagnostic Findings Chest x-ray: report reviewed, image reviewed CT scan - chest: report reviewed, image reviewed (As noted above) Assessment and Plan Assessment: Large left-sided spontaneous pneumothorax status post chest tube Left-sided perihilar pneumonia COPD with exacerbation History of prior asthma Thrombocythemia Remote history of smoking but excessive exposure to fumes and dust related to his occupation being a steel welder Plan: Continue IV steroids Keep chest tube out, GIVEN that pneumothorax on the left side significantly improved Continue antibiotics with Rocephin and Zithromax Continue bronchodilators Deep breathing exercises incentive spirometry Supplemental oxygen to keep saturation over and above 92% Repeat chest x-ray in the morning Further recommendations pending plan of care as per clinical response of the patient
[2021-10-15] MEDS: AZITHROMYCIN 500 MG in SODIUM CHLORIDE 0.9% 250 ML IVPB SCH (11:06)
[2021-10-15 11:38] LABS: Glucose,Whole Blood 184 mg/dL (75-99)
[2021-10-15 16:32] LABS: Glucose,Whole Blood 273 mg/dL (75-99)
--- NOTE | 2021-10-15 16:35 | CONS ---
CONSULTATION DATE OF SERVICE: 10/13/21 I have seen, examined, and agree with the midlevel's findings. I met with this patient for 45 minutes during this consultation. ISRA / LISA: [id number] / Job#:
[2021-10-15 20:15] LABS: Glucose,Whole Blood 234 mg/dL (75-99)
[2021-10-16] MEDS: IPRATROPIUM-ALBUTEROL 3 ML NEB INHALATION SCH ×3 (03:28→11:45)
[2021-10-16 06:20] LABS: Glucose,Whole Blood 179 mg/dL (75-99)
[2021-10-16] MEDS: INSULIN ASPART (NovoLOG) 100 UNIT/ML VIAL SQ SCH (06:21)
[2021-10-16] MEDS: methylPREDNISolone SOD SUCCI 40 MG/ML 1 ML VIAL IV SCH (06:22)
[2021-10-16] MEDS: HYDROXYUREA 500 MG CAP PO SCH (10:15)
[2021-10-16] MEDS: TAMSULOSIN 0.4 MG CAP.ER.24H PO SCH (10:15)
[2021-10-16] MEDS: AZITHROMYCIN 500 MG in SODIUM CHLORIDE 0.9% 250 ML IVPB SCH (10:47)
[2021-10-16 11:54] LABS: Glucose,Whole Blood 186 mg/dL (75-99)
[2021-10-16 12:21] VITALS: BP 150/79; PULSE 91; RESP 13; TEMP 98.6
== END 2021-10-16 12:48 | disposition home or self-care (01) | DRG 190 ==
LOC: EC 19:14 → 3SCARD 21:37
PROVIDERS: ADMIT Family Medicine; ATTEND Family Medicine
PROC: 0W9B30Z Drainage of Left Pleural Cavity with Drainage Device, Percutaneous Approach (ICD-10-PCS; principal; 2021-10-12)
DX: J44.1 Chronic obstructive pulmonary disease with (acute) exacerbation (principal); J96.91 Respiratory failure, unspecified with hypoxia; J18.9 Pneumonia, unspecified organism; J93.12 Secondary spontaneous pneumothorax; J45.901 Unspecified asthma with (acute) exacerbation; J44.0 Chronic obstructive pulmonary disease with (acute) lower respiratory infection; J98.2 Interstitial emphysema; J44.9 Chronic obstructive pulmonary disease, unspecified; Z20.822 Contact with and (suspected) exposure to COVID-19; D69.6 Thrombocytopenia, unspecified; N40.0 Benign prostatic hyperplasia without lower urinary tract symptoms; F41.9 Anxiety disorder, unspecified; Z79.899 Other long term (current) drug therapy; Z87.891 Personal history of nicotine dependence; Z83.3 Family history of diabetes mellitus; Z82.49 Family history of ischemic heart disease and other diseases of the circulatory system
CPT/HCPCS: 32551; 36415; 71045; 71250; 80048; 80053; 85025; 85610; 85730; 87070; 87205; 87502; 87635; 93005; 94640; 94760; 96365; 96375; 96376; 99151; 99285

== ENCOUNTER 2021-11-03 18:34 | Inpatient (IN) | payer MEDICARE ==
--- NOTE | 2021-11-03 19:29 | XR ---
EXAMINATION TYPE: XR chest 2V DATE OF EXAM: 11/03/2021 COMPARISON: 10/14/2021 HISTORY: Short of breath TECHNIQUE: Single view FINDINGS: There is extensive soft tissue air on the left chest wall at the base of the neck bilateral ly. Trachea is midline. Heart size is normal. Lungs are clear of consolidation. There is possible sma ll pneumothorax along the left lateral chest wall measuring a few millimeters in thickness. The right lung is clear. IMPRESSION: Extensive soft tissue air over the chest is increased compared to old exam. There is jenniffer ring of infiltrate and atelectasis left midlung compared to old exam. There is possible new small lef t side pneumothorax along the lower lateral chest wall.
--- NOTE | 2021-11-03 19:43 | ED ---
SOB HPI - General Chief Complaint: Shortness of Breath Stated Complaint: post op chest & facial swelling Time Seen by Provider: 11/03/21 19:02 Source: patient, RN notes reviewed Mode of arrival: ambulatory Limitations: no limitations - History of Present Illness Initial Comments: 71-year-old male with a history of a recent spontaneous pneumothorax on the left who had a chest tube was pulled out accidentally several days after being placed in late September who presents with complaints of the onset 2 days ago of swelling to the left side of his face neck and chest wall area. He states he had sutures removed 3 days ago in this started the next day. No cough fevers chills sweats. He does have some audible shortness of breath. He is a end-stage COPD patient. Denies cough up any phlegm no new trauma. No other complaints modifying factors. - Related Data Home Medications Medication Instructions Recorded Confirmed ALPRAZolam [Xanax] 0.5 mg PO TID PRN 10/12/21 11/03/21 Hydroxyurea [Hydrea] 500 mg PO BID 10/12/21 11/03/21 Ipratropium/Albuter 20-100Mcg 1 puff INHALATION RT-QID 10/12/21 11/03/21 [Combivent Respimat 20-100Mcg Inhaler] Tamsulosin HCl [Flomax] 0.8 mg PO DAILY 10/12/21 11/03/21 Previous Rx's Medication Instructions Recorded methocarbamoL [Robaxin-750] 750 mg PO QID PRN #60 tab 10/16/21 Allergies Allergy/AdvReac Type Severity Reaction Status Date / Time No Known Allergies Allergy Verified 11/03/21 20:30 Review of Systems ROS Statement: Those systems with pertinent positive or pertinent negative responses have been documented in the HPI. ROS Other: All systems not noted in ROS Statement are negative. Past Medical History Past Medical History: Asthma, Prostate Disorder Additional Past Medical History / Comment(s): Thrombocythemia History of Any Multi-Drug Resistant Organisms: None Reported Past Surgical History: No Surgical Hx Reported Past Anesthesia/Blood Transfusion Reactions: No Reported Reaction Past Psychological History: Anxiety Smoking Status: Former smoker Past Alcohol Use History: Occasional Past Drug Use History: None Reported - Past Family History Mother Family Medical History: No Reported History Additional Family Medical History / Comment(s): of old age Father Family Medical History: Diabetes Mellitus Brother(s) Family Medical History: Coronary Artery Disease (CAD) Additional Family Medical History / Comment(s): Brother who was diagnosed with CAD and an early age and in his early 60s from CAD General Exam - General Exam Comments Initial Comments: This is a well-developed well-nourished awake alert oriented 4 male Limitations: no limitations General appearance: alert, anxious Head exam: Present: atraumatic, normocephalic, normal inspection Eye exam: Present: normal appearance, PERRL, EOMI. Absent: scleral icterus, conjunctival injection, periorbital swelling ENT exam: Present: mucous membranes dry Neck exam: Present: other (Evidence of fullness to the left side of the neck compared to the right side.). Absent: tenderness, meningismus, lymphadenopathy Respiratory exam: Present: decreased breath sounds, other (Hazel left chest wall left anterior upper chest wall and upper back area consistent with subcutaneous emphysema). Absent: respiratory distress, wheezes, rales, rhonchi, stridor Cardiovascular Exam: Present: normal rhythm, tachycardia, normal heart sounds. Absent: systolic murmur, diastolic murmur, rubs, gallop, clicks GI/Abdominal exam: Present: soft, normal bowel sounds. Absent: distended, tenderness, guarding, rebound, rigid Extremities exam: Present: normal inspection, full ROM, normal capillary refill. Absent: tenderness, pedal edema, joint swelling, calf tenderness Back exam: Present: normal inspection Neurological exam: Present: alert, oriented X3, CN II-XII intact Psychiatric exam: Present: normal affect, normal mood Skin exam: Present: warm, dry, intact, normal color. Absent: rash Course Vital Signs 11/03/21 11/03/21 18:39 19:03 Temperature 98.5 F Pulse Rate 121 H Respiratory 22 18 Rate Blood Pressure 159/93 O2 Sat by Pulse 97 Oximetry - Reevaluation(s) Reevaluation #1: 11/03/21 21:24 X-ray does show evidence of subcutaneous emphysema query small pneumothorax on the left. CAT scan was performed shows the above the left 5% pneumothorax on left he does have subcutaneous emphysema especially on the left chest wall and neck as well as left side of the back. Please see complete report Medical Decision Making - Medical Decision Making I did discuss findings with the patient and his . Also with multiple physicians including Dr. Worley, Dr. Norris and Dr. Rodriguez's group. Patient be admitted with monitoring repeat x-ray in the morning. This time no evidence of any airway compromise. - Lab Data Result diagrams: 11/03/21 20:04 11/03/21 20:04 Lab Results 11/03/21 11/03/21 11/03/21 Range/Units 20:04 20:04 20:04 WBC 6.6 (3.8-10.6) k/uL RBC 3.83 L (4.30-5.90) m/uL Hgb 13.8 (13.0-17.5) gm/dL Hct 41.9 (39.0-53.0) % MCV 109.1 H D (80.0-100.0) fL MCH 36.0 H (25.0-35.0) pg MCHC 33.0 (31.0-37.0) g/dL RDW 12.9 (11.5-15.5) % Plt Count 382 (150-450) k/uL MPV 7.5 Neutrophils % 79 % Lymphocytes % 12 % Monocytes % 4 % Eosinophils % 2 % Basophils % 1 % Neutrophils # 5.3 (1.3-7.7) k/uL Lymphocytes # 0.8 L (1.0-4.8) k/uL Monocytes # 0.3 (0-1.0) k/uL Eosinophils # 0.1 (0-0.7) k/uL Basophils # 0.1 (0-0.2) k/uL Macrocytosis Moderate Sodium 135 L (137-145) mmol/L Potassium 4.0 (3.5-5.1) mmol/L Chloride 101 (98-107) mmol/L Carbon Dioxide 29 (22-30) mmol/L Anion Gap 5 mmol/L BUN 15 (9-20) mg/dL Creatinine 0.65 L (0.66-1.25) mg/dL Est GFR (CKD-EPI)AfAm >90 (>60 ml/min/1.73 sqM) Est GFR (CKD-EPI)NonAf >90 (>60 ml/min/1.73 sqM) Glucose 134 H (74-99) mg/dL Calcium 8.5 (8.4-10.2) mg/dL Magnesium 1.6 (1.6-2.3) mg/dL Total Bilirubin 0.6 (0.2-1.3) mg/dL AST 30 (17-59) U/L ALT 27 (4-49) U/L Alkaline Phosphatase 65 (38-126) U/L Creatine Kinase 214 H (55-170) U/L Total Creatine Kinase 223 H (55-170) U/L CK-MB (CK-2) 4.3 H (0.0-2.4) ng/mL CK-MB (CK-2) Rel Index 1.9 Troponin I <0.012 (0.000-0.034) ng/mL Total Protein 6.5 (6.3-8.2) g/dL Albumin 3.8 (3.5-5.0) g/dL - Radiology Data Radiology results: report reviewed (Imaging reviewed as well as report please see the note above.), image reviewed Disposition Clinical Impression: Pneumothorax on left, Subcutaneous emphysema, Dehydration, Tachycardia Disposition: ADMITTED IP TO THIS [facility] Condition: Stable Referrals: Elan Barclay MD [Primary Care Provider] - 1-2 days Decision Date: 11/03/21 Decision Time: 21:00
--- NOTE | 2021-11-03 19:55 | ED ---
SOB HPI - General Chief Complaint: Shortness of Breath Stated Complaint: post op chest & facial swelling Time Seen by Provider: 11/03/21 19:02 Source: patient Mode of arrival: ambulatory Limitations: no limitations - Related Data Home Medications Medication Instructions Recorded Confirmed ALPRAZolam [Xanax] 0.5 mg PO TID PRN 10/12/21 10/12/21 Azithromycin [Zithromax Z-pack (6 See Taper PO DIRECTED 10/12/21 10/12/21 tabs)] Hydroxyurea [Hydrea] 500 mg PO BID 10/12/21 10/12/21 Ipratropium/Albuter 20-100Mcg 1 puff INHALATION RT-QID 10/12/21 10/12/21 [Combivent Respimat 20-100Mcg Inhaler] Tamsulosin HCl [Flomax] 0.8 mg PO DAILY 10/12/21 10/12/21 Previous Rx's Medication Instructions Recorded methocarbamoL [Robaxin-750] 750 mg PO QID PRN #60 tab 10/16/21 predniSONE [Deltasone] 20 mg PO DIRECTED #18 tab 10/16/21 Allergies Allergy/AdvReac Type Severity Reaction Status Date / Time No Known Allergies Allergy Verified 11/03/21 18:42 Review of Systems ROS Statement: Those systems with pertinent positive or pertinent negative responses have been documented in the HPI. ROS Other: All systems not noted in ROS Statement are negative. Past Medical History Past Medical History: Asthma, Prostate Disorder Additional Past Medical History / Comment(s): Thrombocythemia History of Any Multi-Drug Resistant Organisms: None Reported Past Surgical History: No Surgical Hx Reported Past Anesthesia/Blood Transfusion Reactions: No Reported Reaction Past Psychological History: Anxiety Smoking Status: Former smoker Past Alcohol Use History: Occasional Past Drug Use History: None Reported - Past Family History Mother Family Medical History: No Reported History Additional Family Medical History / Comment(s): of old age Father Family Medical History: Diabetes Mellitus Brother(s) Family Medical History: Coronary Artery Disease (CAD) Additional Family Medical History / Comment(s): Brother who was diagnosed with CAD and an early age and in his early 60s from CAD General Exam Limitations: no limitations Course Vital Signs 11/03/21 11/03/21 18:39 19:03 Temperature 98.5 F Pulse Rate 121 H Respiratory 22 18 Rate Blood Pressure 159/93 O2 Sat by Pulse 97 Oximetry Disposition Referrals: Elan Barclay MD [Primary Care Provider] - 1-2 days
--- NOTE | 2021-11-03 20:08 | CT ---
EXAMINATION TYPE: CT neck chest without con DATE OF EXAM: 11/03/2021 COMPARISON: 10/13/2021 CT chest HISTORY: Left sided neck and chest swelling. History of recent pneumothorax. CT DLP: 718.4 mGycm Automated exposure control for dose reduction was used. Images obtained from the level of the orbits to the diaphragm without contrast. There is extensive soft tissue air throughout the neck. There is extensive soft tissue air on the lef t side of the chest. There is a small left-sided pneumothorax. This is less than 5%. No evidence of t ension. There is small amount of mediastinal air. There is no mediastinal adenopathy. Thoracic aorta appears intact. No aneurysm. Heart size is normal. No pericardial effusion. No pleural effusion. There is some mild atelectasis at the left posterior l leslie base. The bony thorax is intact. No thoracic compression fracture. Sternum is intact. No retroste rnal mass. IMPRESSION: Extensive soft tissue air involving the neck and left side of the chest which is significantly increa sed compared to last exam. There is a small left-sided pneumothorax slightly increased compared to old exam. There is significan t clearing of the infiltrate in the left lung compared to old exam. There is some new mild mediastina l air compared to old exam.
[2021-11-03 20:29] LABS: Basophils # (A) 0.1 k/uL (0-0.2); Basophils % (A) 1 %; Eosinophils # (A) 0.1 k/uL (0-0.7); Eosinophils % (A) 2 %; HCT 41.9 % (39.0-53.0); HGB 13.8 gm/dL (13.0-17.5); Lymphocytes # (A) 0.8 k/uL (1.0-4.8); Lymphocytes % (A) 12 %; Macrocytosis Moderate; Mean Platelet Volume 7.5; Monocytes # (A) 0.3 k/uL (0-1.0); Monocytes % (A) 4 %; Neutrophils # (A) 5.3 k/uL (1.3-7.7); Neutrophils % (A) 79 %; Platelet Count 382 k/uL (150-450); RBC 3.83 m/uL (4.30-5.90); RDW 12.9 % (11.5-15.5); WBC 6.6 k/uL (3.8-10.6)
[2021-11-03 20:43] LABS: MCV 109.1 fL (80.0-100.0)
[2021-11-03 20:52] LABS: Creatine Kinase 223 U/L (55-170)
[2021-11-03 20:56] LABS: ALT 27 U/L (4-49); AST 30 U/L (17-59); African American GFR (CKD) >90 (>60 ml/min/1.73 sqM); Albumin 3.8 g/dL (3.5-5.0); Alkaline Phosphatase 65 U/L (38-126); Anion Gap 5 mmol/L; Blood Urea Nitrogen 15 mg/dL (9-20); Calcium 8.5 mg/dL (8.4-10.2); Carbon Dioxide 29 mmol/L (22-30); Chloride 101 mmol/L (98-107); Creatine Kinase 214 U/L (55-170); Glucose 134 mg/dL (74-99); Magnesium 1.6 mg/dL (1.6-2.3); Non-African American GFR(CKD) >90 (>60 ml/min/1.73 sqM); Sodium 135 mmol/L (137-145); Total Bilirubin 0.6 mg/dL (0.2-1.3); Total Protein 6.5 g/dL (6.3-8.2)
[2021-11-03 21:04] LABS: Creatine Kinase MB 4.3 ng/mL (0.0-2.4); Troponin I <0.012 ng/mL (0.000-0.034)
[2021-11-03] MEDS ORDERED: ONDANSETRON 4 MG/2 ML VIAL IVP PRN (21:28)
[2021-11-03] MEDS ORDERED: NALOXONE 0.4 MG/ML 1 ML VIAL IV PRN (21:28)
[2021-11-03] MEDS ORDERED: methocarbamoL 750 MG TAB PO PRN (21:31)
[2021-11-03] MEDS ORDERED: IPRATROPIUM-ALBUTEROL 3 ML NEB INHALATION STA (21:33)
[2021-11-03] MEDS: ALPRAZolam 0.5 MG TAB PO PRN (22:58)
[2021-11-04] MEDS: SODIUM CHLORIDE 0.9% 1,000 ML IV SCH ×2 (02:00→20:21)
[2021-11-04] MEDS: IPRATROPIUM-ALBUTEROL 3 ML NEB INHALATION SCH ×4 (02:43→19:20)
[2021-11-04] MEDS ORDERED: IPRATROPIUM-ALBUTEROL 3 ML NEB INHALATION SCH (08:00)
--- NOTE | 2021-11-04 08:22 | XR ---
EXAMINATION TYPE: XR chest 2V DATE OF EXAM: 11/04/2021 COMPARISON: CT dated 11/03/2021 HISTORY: Progressive pneumothorax TECHNIQUE: Frontal and lateral views of the chest are obtained. FINDINGS: Persistent extensive soft tissue emphysema involving the left chest wall and extending superiorly int o the lower neck bilaterally. Persistent left-sided pneumothorax measuring up to 2.3 cm along the lateral aspect of the lower lung zone compared to 1.5 cm previously. Subtle pneumomediastinum cannot be excluded by this x-ray. No definite right-sided pneumothorax. No p leural effusion bilaterally. No gross cardiomegaly. Unchanged bony thoracic cage. IMPRESSION: Apparently more prominent left-sided pneumothorax as described above.
--- NOTE | 2021-11-04 08:39 | P.PN ---
Subjective Progress Note Date: 11/04/21 Principal diagnosis: Subcutaneous emphysema The patient is a 68-year-old male with spontaneous pneumothorax several weeks ago with chest tube. As the day after and removed his chest tube stitches, he started developing facial swelling resulted in subcutaneous emphysema. The patient was followed up and is now stabilizing. Less pain Objective - Vital Signs Vital signs: Vital Signs Temp 98.0 F 11/04/21 05:00 Pulse 95 11/04/21 07:52 Resp 18 11/04/21 05:00 BP 113/78 11/04/21 05:00 Pulse Ox 95 11/04/21 07:39 FiO2 Intake & Output 11/03/21 11/04/21 11/04/21 18:59 06:59 18:59 Weight 78.018 kg 78.018 kg Other: # Voids 2 - Constitutional General appearance: Present: no acute distress - EENT Eyes: Absent: abnormal pupil - Neck Neck: Absent: lymphadenopathy - Respiratory Respiratory: bilateral: diminished - Cardiovascular Rhythm: regular Heart sounds: normal: S1, S2 Abnormal Heart Sounds: Absent: S3 Gallop - Gastrointestinal General gastrointestinal: Present: soft. Absent: tenderness - Labs CBC & Chem 7: 11/03/21 20:04 11/03/21 20:04 Labs: Abnormal Lab Results - Last 24 Hours (Table) 11/03/21 11/03/21 11/03/21 Range/Units 20:04 20:04 20:04 RBC 3.83 L (4.30-5.90) m/uL MCV 109.1 H D (80.0-100.0) fL MCH 36.0 H (25.0-35.0) pg Lymphocytes # 0.8 L (1.0-4.8) k/uL Sodium 135 L (137-145) mmol/L Creatinine 0.65 L (0.66-1.25) mg/dL Glucose 134 H (74-99) mg/dL Creatine Kinase 214 H (55-170) U/L Total Creatine Kinase 223 H (55-170) U/L CK-MB (CK-2) 4.3 H (0.0-2.4) ng/mL Assessment and Plan (1) Subcutaneous emphysema Current Visit: Yes Status: Acute Code(s): T79.7XXA - TRAUMATIC SUBCUTANEOUS EMPHYSEMA, INITIAL ENCOUNTER SNOMED Code(s): 7914275 Plan: Continue observation. Anticipate discharge once cleared by pulmonology in next 24 hours.
[2021-11-04] MEDS: TAMSULOSIN 0.4 MG CAP.ER.24H PO SCH (08:55)
[2021-11-04] MEDS: HYDROXYUREA 500 MG CAP PO SCH ×2 (08:55→20:26)
[2021-11-04] MEDS: ALPRAZolam 0.5 MG TAB PO PRN ×2 (08:57→17:09)
--- NOTE | 2021-11-04 10:03 | P.GSCN ---
History of Present Illness Consult date: 11/04/21 Reason for Consult: Left-sided pneumothorax with subcutaneous emphysema Requesting physician: Gareth Childers History of present illness: This is a 71-year-old gentleman who follows on an outpatient basis with Dr. Barclay for primary care, Dr. XIANG Gore for pulmonology, and Dr. Carmen for hematology. He has a previous medical history of recent hospitalization for left-sided pneumothorax, asthma, thrombocythemia, BPH, and previous tobacco dependence. He was recently hospitalized after a 3 week period of shortness of breath which he had initially attributed to his asthma. He did see his coding auditor and was prescribed antibiotics, steroids, and updrafts with no improvement. Upon presentation to [facility] emergency room he had been diagnosed with left-sided pneumothorax and a chest tube was placed by the emergency room physicians with good reexpansion of the left lung. Unfortunately within 24 hours the chest tube became inadvertently removed. Follow-up chest x- ray demonstrated no pneumothorax but extensive subcutaneous emphysema. The patient was discharged to home after a couple of days and was recovering at home without incident. A couple of days ago he noticed swelling to the left side of his face and chest wall area with change in his voice according to his . He presented to [facility] emergency room again last night and chest x-ray revealed small bilateral pneumothorax on the left with extensive subcutaneous emphysema. In addition a CT of the neck and chest was completed confirming extensive left sided subcutaneous emphysema and left-sided pneumothorax. The patient was admitted for evaluation and treatment with consultation placed to pulmonology and cardiothoracic surgery for treatment recommendations. Review of Systems Review of systems was completed and was negative except as noted - Respiratory Respiratory Comment(s): Left-sided subcutaneous emphysema Reports as per HPI, Reports dyspnea Past Medical History Past Medical History: Asthma, Prostate Disorder Additional Past Medical History / Comment(s): Thrombocythemia, spontaneous pneumothorax with chest tube History of Any Multi-Drug Resistant Organisms: None Reported Past Surgical History: No Surgical Hx Reported Past Anesthesia/Blood Transfusion Reactions: No Reported Reaction Past Psychological History: Anxiety Smoking Status: Never smoker Past Alcohol Use History: Occasional Past Drug Use History: None Reported - Past Family History Mother Family Medical History: No Reported History Additional Family Medical History / Comment(s): of old age Father Family Medical History: Diabetes Mellitus Brother(s) Family Medical History: Coronary Artery Disease (CAD) Additional Family Medical History / Comment(s): Brother who was diagnosed with CAD and an early age and in his early 60s from CAD Medications and Allergies Home Medications Medication Instructions Recorded Confirmed Type ALPRAZolam [Xanax] 0.5 mg PO TID PRN 10/12/21 11/03/21 History Hydroxyurea [Hydrea] 500 mg PO BID 10/12/21 11/03/21 History Ipratropium/Albuter 20-100Mcg 1 puff INHALATION RT-QID 10/12/21 11/03/21 History [Combivent Respimat 20-100Mcg Inhaler] Tamsulosin HCl [Flomax] 0.8 mg PO DAILY 10/12/21 11/03/21 History methocarbamoL [Robaxin-750] 750 mg PO QID PRN #60 tab 10/16/21 11/03/21 Rx Allergies Allergy/AdvReac Type Severity Reaction Status Date / Time No Known Allergies Allergy Verified 11/03/21 20:30 Surgical - Exam Vital Signs Temp Pulse Resp BP Pulse Ox 98.5 F 121 H 22 159/93 97 11/03/21 18:39 11/03/21 18:39 11/03/21 18:39 11/03/21 18:39 11/03/21 18:39 CONSTITUTIONAL: Awake and alert, appears comfortable, cooperative, well- developed, well-nourished, no pain, no acute distress EYES: Pupils equal, round, reactive to light, normal ocular movement ENT: Moist mucous membranes without oral lesions present NECK: No masses, no bruits, trachea midline. Subcutaneous emphysema present to left neck RESPIRATORY: Lungs sounds diminished to auscultation bilaterally. Respirations even, nonlabored. Currently on room air with oxygen saturation 95%. Strong cough. Subcutaneous emphysema present to left chest and left arm CARDIOVASCULAR: S1, S2 present. Regular rate and rhythm, sinus rhythm on telemetry. Palpable peripheral pulses bilaterally. No peripheral edema present. No calf pain or tenderness noted. GASTROINTESTINAL: Abdomen soft, nontender, nondistended without masses or organomegaly noted. There is no rebound or guarding present. Active bowel sounds present 4 quadrants. GENITOURINARY: Deferred INTEGUMENTARY: Skin is warm and dry with evidence of good perfusion. NEUROLOGIC: Cranial nerves II through XII intact, normal coordination, no obvious motor or sensory deficits, speech is normal MUSKULOSKELETAL: Able to move all extremities, strength equal bilaterally, normal posture PSYCHIATRIC: Alert and oriented to person place and time, appropriate affect, intact judgment and insight Results - Labs 11/03/21 20:04 11/03/21 20:04 Abnormal Lab Results - Last 24 Hours (Table) 11/03/21 11/03/21 11/03/21 Range/Units 20:04 20:04 20:04 RBC 3.83 L (4.30-5.90) m/uL MCV 109.1 H D (80.0-100.0) fL MCH 36.0 H (25.0-35.0) pg Lymphocytes # 0.8 L (1.0-4.8) k/uL Sodium 135 L (137-145) mmol/L Creatinine 0.65 L (0.66-1.25) mg/dL Glucose 134 H (74-99) mg/dL Creatine Kinase 214 H (55-170) U/L Total Creatine Kinase 223 H (55-170) U/L CK-MB (CK-2) 4.3 H (0.0-2.4) ng/mL Diabetes panel 11/03/21 Range/Units 20:04 Sodium 135 L (137-145) mmol/L Potassium 4.0 (3.5-5.1) mmol/L Chloride 101 (98-107) mmol/L Carbon Dioxide 29 (22-30) mmol/L BUN 15 (9-20) mg/dL Creatinine 0.65 L (0.66-1.25) mg/dL Glucose 134 H (74-99) mg/dL Calcium 8.5 (8.4-10.2) mg/dL AST 30 (17-59) U/L ALT 27 (4-49) U/L Alkaline Phosphatase 65 (38-126) U/L Total Protein 6.5 (6.3-8.2) g/dL Albumin 3.8 (3.5-5.0) g/dL Calcium panel 11/03/21 Range/Units 20:04 Calcium 8.5 (8.4-10.2) mg/dL Albumin 3.8 (3.5-5.0) g/dL Pituitary panel 11/03/21 Range/Units 20:04 Sodium 135 L (137-145) mmol/L Potassium 4.0 (3.5-5.1) mmol/L Chloride 101 (98-107) mmol/L Carbon Dioxide 29 (22-30) mmol/L BUN 15 (9-20) mg/dL Creatinine 0.65 L (0.66-1.25) mg/dL Glucose 134 H (74-99) mg/dL Calcium 8.5 (8.4-10.2) mg/dL Adrenal panel 11/03/21 Range/Units 20:04 Sodium 135 L (137-145) mmol/L Potassium 4.0 (3.5-5.1) mmol/L Chloride 101 (98-107) mmol/L Carbon Dioxide 29 (22-30) mmol/L BUN 15 (9-20) mg/dL Creatinine 0.65 L (0.66-1.25) mg/dL Glucose 134 H (74-99) mg/dL Calcium 8.5 (8.4-10.2) mg/dL Total Bilirubin 0.6 (0.2-1.3) mg/dL AST 30 (17-59) U/L ALT 27 (4-49) U/L Alkaline Phosphatase 65 (38-126) U/L Total Protein 6.5 (6.3-8.2) g/dL Albumin 3.8 (3.5-5.0) g/dL - Imaging Chest x-ray: report reviewed, image reviewed CT scan - chest: report reviewed, image reviewed Assessment and Plan Assessment: 1. Recurrent left-sided basilar pneumothorax with extensive subcutaneous emphysema 2. Asthma 3. Thrombocythemia 4. BPH 5. Previous tobacco dependence Plan: The patient was seen and examined on the cardiac stepdown unit with at the bedside. He was in no acute distress at the time and was actually eating breakfast. Remains on room air. Subcutaneous emphysema was palpated over the left neck but more so over the left chest and left arm. The case was discussed in detail with Dr. Alcala and films were reviewed with Dr. Alcala. At this time we will plan for left-sided video-assisted thoracoscopic surgery, wedge res ection of the apex, and mechanical pleurodesis to be completed tomorrow afternoon by Dr. Nur. We discussed the usual perioperative course with the patient and his family, all questions were answered and the patient consents to surgery. Will monitor daily x-rays. Incentive spirometry ordered and should be encouraged. Increase activity, ambulate as tolerated. Medical management of other comorbidities per primary care, pulmonology. Thank you for this consult. We will continue to follow along with you and make further recommendations as appropriate. I have personally seen and examined the patient, performed the documentation and the assessment and plan as written. Number of minutes spent on the visit: 30. LYNDSAY Ochoa I have personally seen and examined the patient, reviewed and agree with the documentation and the assessment and plan as written. Number of minutes spent on the visit: 40. Toan Alcala MD
[2021-11-04] MEDS ORDERED: ONDANSETRON 4 MG/2 ML VIAL IVP ONE (20:07)
[2021-11-04] MEDS ORDERED: LIDOCAINE 1% (10MG/ML) FOR IV START INTRADERMA PRN (20:07)
[2021-11-04] MEDS ORDERED: DEXAMETHASONE SOD PHOSPHATE 4 MG/ML 1 ML VIAL IV ONE (20:07)
[2021-11-05] MEDS: ALPRAZolam 0.5 MG TAB PO PRN ×2 (00:08→09:05)
[2021-11-05] MEDS: IPRATROPIUM-ALBUTEROL 3 ML NEB INHALATION SCH ×4 (01:46→19:53)
[2021-11-05] MEDS: LACTATED RINGERS 1,000 ML IV SCH ×3 (03:36→14:23)
[2021-11-05] MEDS: SODIUM CHLORIDE 0.9% 1,000 ML IV SCH ×4 (06:40→20:26)
[2021-11-05] MEDS ORDERED: METOCLOPRAMIDE 5 MG/ML 2 ML VIAL IVP PRN (07:00)
[2021-11-05] MEDS ORDERED: HYDROmorphone 0.5 MG/0.5 ML SYRINGE IVP PRN (07:00)
[2021-11-05] MEDS: TAMSULOSIN 0.4 MG CAP.ER.24H PO SCH (09:04)
[2021-11-05] MEDS: HYDROXYUREA 500 MG CAP PO SCH ×2 (09:04→20:43)
--- NOTE | 2021-11-05 09:40 | P.PN ---
Subjective Principal diagnosis: Subcutaneous emphysema The patient is a 68-year-old male with spontaneous pneumothorax several weeks ago with chest tube. As the day after and removed his chest tube stitches, he started developing facial swelling resulted in subcutaneous emphysema. The patient was followed up and is now stabilizing. Less pain Thoracoscopies now scheduled. Objective - Vital Signs Vital signs: Vital Signs Temp 97.5 F L 11/05/21 04:00 Pulse 100 11/05/21 08:26 Resp 20 11/05/21 04:00 BP 136/72 11/05/21 04:00 Pulse Ox 95 11/05/21 04:00 FiO2 Intake & Output 11/04/21 11/05/21 11/05/21 18:59 06:59 18:59 Intake Total 360 Balance 360 Intake: Oral 360 Other: # Voids 1 2 - Constitutional General appearance: Present: average body habitus - EENT Eyes: Absent: abnormal pupil - Neck Neck: Absent: lymphadenopathy - Respiratory Respiratory: bilateral: diminished - Cardiovascular Rhythm: regular Heart sounds: normal: S1, S2 Abnormal Heart Sounds: Absent: S3 Gallop - Gastrointestinal General gastrointestinal: Present: soft. Absent: tenderness - Integumentary Integumentary: Absent: cellulitis - Labs CBC & Chem 7: 11/03/21 20:04 11/03/21 20:04 Assessment and Plan (1) Subcutaneous emphysema Current Visit: Yes Status: Acute Code(s): T79.7XXA - TRAUMATIC SUBCUTANEOUS EMPHYSEMA, INITIAL ENCOUNTER SNOMED Code(s): 5135462 Plan: The patient is now scheduled for thoracoscopy with reddish resection and pleurodesis due to the fact that he's having spontaneous air. We'll continue to follow
--- NOTE | 2021-11-05 09:44 | P.CNPUL ---
History of Present Illness Consult date: 11/04/21 Reason for consult: dyspnea, chest pain Chief complaint: Shortness of breath along with chest tightness History of present illness: Patient presented to the emergency department with increasing shortness of breath as well as left subcu emphysema involving left start getting worse in the last few days. Patient sees Dr. Gore has a pulmonary physician He was recently hospitalized after a 3 week period of shortness of breath which he had initially attributed to his asthma. He did see his vice president client services and was prescribed antibiotics, steroids, and updrafts with no improvement. Upon presentation to [facility] emergency room he had been diagnosed with left-sided pneumothorax and a chest tube was placed by the emergency room physicians with good reexpansion of the left lung. Unfortunately within 24 hours the chest tube became inadvertently removed. Follow-up chest x-ray demonstrated no pneumothorax but extensive subcutaneous emphysema. The patient was discharged to home after a couple of days and was recovering at home without incident. A couple of days ago he noticed swelling to the left side of his face and chest wall area with change in his voice according to his . He presented to [facility] emergency room again last night and chest x-ray revealed small bilateral pneumothorax on the left with extensive subcutaneous emphysema. In addition a CT of the neck and chest was completed confirming extensive left sided subcutaneous emphysema and left-sided pneumothorax. The patient was admitted for evaluation and treatment. Thoracic surgery have been consulted they are planning for VATS procedure on the left side tomorrow. On specific questioning denies any dizziness lightheadedness denies any fever or chills mild chest tightness is present with shortness of breath not much change Review of Systems All systems: negative Past Medical History Past Medical History: Asthma, Prostate Disorder Additional Past Medical History / Comment(s): Thrombocythemia, spontaneous pneumothorax with chest tube History of Any Multi-Drug Resistant Organisms: None Reported Past Surgical History: No Surgical Hx Reported Past Anesthesia/Blood Transfusion Reactions: No Reported Reaction Past Psychological History: Anxiety Smoking Status: Never smoker Past Alcohol Use History: Occasional Past Drug Use History: None Reported - Past Family History Mother Family Medical History: No Reported History Additional Family Medical History / Comment(s): of old age Father Family Medical History: Diabetes Mellitus Brother(s) Family Medical History: Coronary Artery Disease (CAD) Additional Family Medical History / Comment(s): Brother who was diagnosed with CAD and an early age and in his early 60s from CAD Medications and Allergies Home Medications Medication Instructions Recorded Confirmed Type ALPRAZolam [Xanax] 0.5 mg PO TID PRN 10/12/21 11/03/21 History Hydroxyurea [Hydrea] 500 mg PO BID 10/12/21 11/03/21 History Ipratropium/Albuter 20-100Mcg 1 puff INHALATION RT-QID 10/12/21 11/03/21 History [Combivent Respimat 20-100Mcg Inhaler] Tamsulosin HCl [Flomax] 0.8 mg PO DAILY 10/12/21 11/03/21 History methocarbamoL [Robaxin-750] 750 mg PO QID PRN #60 tab 10/16/21 11/03/21 Rx Allergies Allergy/AdvReac Type Severity Reaction Status Date / Time No Known Allergies Allergy Verified 11/03/21 20:30 Physical Exam Vitals: Vital Signs Temp Pulse Pulse Resp BP BP Pulse Ox 11/04/21 07:52 95 11/04/21 07:39 95 95 11/04/21 05:00 98.0 F 115 H 18 113/78 94 L 11/04/21 02:53 122 H 11/04/21 02:43 124 H 11/04/21 00:15 98.3 F 107 H 16 128/77 96 11/03/21 22:17 98.4 F 117 H 18 142/81 95 11/03/21 22:02 116 H 11/03/21 21:49 118 H 11/03/21 19:03 18 11/03/21 18:39 98.5 F 121 H 22 159/93 97 Intake and Output 11/03/21 11/04/21 11/04/21 22:59 06:59 14:59 Other: # Voids 2 Weight 78.018 kg - Constitutional General appearance: disheveled - EENT Eyes: EOMI, PERRLA Ears: bilateral: normal - Neck Neck: normal ROM Carotids: bilateral: upstroke normal Thyroid: bilateral: normal size - Respiratory Respiratory: right: CTA, left: diminished (Extensive subcu emphysema anterior part of the chest shoulder and back), dullness - Cardiovascular Rhythm: regular Heart sounds: normal: S1, S2 - Gastrointestinal General gastrointestinal: normal bowel sounds, soft - Integumentary Integumentary: normal turgor - Neurologic Neurologic: CNII-XII intact - Musculoskeletal Musculoskeletal: gait normal, strength equal bilaterally - Psychiatric Psychiatric: A&O x's 3 Results - Laboratory Findings CBC and BMP: 11/03/21 20:04 11/03/21 20:04 Abnormal lab findings: Abnormal Labs 11/03/21 11/03/21 11/03/21 20:04 20:04 20:04 RBC 3.83 L MCV 109.1 H D MCH 36.0 H Lymphocytes # 0.8 L Sodium 135 L Creatinine 0.65 L Glucose 134 H Creatine Kinase 214 H Total Creatine Kinase 223 H CK-MB (CK-2) 4.3 H - Diagnostic Findings Chest x-ray: report reviewed, image reviewed CT scan - chest: report reviewed, image reviewed (Admit Chest x-ray shows e xtensive air over anterior part of the chest consistent with subcu emphysema with left-sided small pneumothorax, increase left-sided pneumothorax on computed tomography scan with extensive subcu emphysema and mediastinal air, chest x-ray performed earlier this morning worsen) Assessment and Plan Assessment: Left-sided enlarging pneumothorax Extensive subcutaneous emphysema on left side Severe asthma not in exacerbation Baseline COPD not in exacerbation Thrombocythemia History of smoking tobacco use BPH Plan: Surgery has been consulted for evaluation for VATS Continue deep breathing exercises incentive spirometry Continue bronchodilator Further plan of care as per clinical response of the patient Time with Patient: Greater than 30
--- NOTE | 2021-11-05 09:48 | P.PN ---
Subjective Progress Note Date: 11/05/21 Principal diagnosis: Left-sided enlarging pneumothorax Extensive subcutaneous emphysema and mediastinal emphysema on left side Severe asthma not in exacerbation Baseline COPD not in exacerbation Thrombocythemia History of smoking tobacco use 11/05/2021, patient seen eval examined during the rounds labs reviewed medications reviewed care plan discussed, respiratory status remains stable however patient get short of breath easily sats are stable, has some discomfort on the left side, subcu emphysema anterior part of the chest on the left side remains unchanged, patient is scheduled for VATS procedure later on this afternoon, procedure explained to the patient and at length He was recently hospitalized after a 3 week period of shortness of breath which he had initially attributed to his asthma. He did see his librarian special collections and was prescribed antibiotics, steroids, and updrafts with no improvement. Upon presentation to [facility] emergency room he had been diagnosed with left-sided pneumothorax and a chest tube was placed by the emergency room ysicians with good reexpansion of the left lung. Unfortunately within 24 hours the chest tube became inadvertently removed. Follow-up chest x-ray demonstrated no pneumothorax but extensive subcutaneous emphysema. The patient was discharged to home after a couple of days and was recovering at home without incident. A couple of days ago he noticed swelling to the left side of his face and chest wall area with change in his voice according to his . He presented to [facility] emergency room again last night and chest x-ray revealed small bilateral pneumothorax on the left with extensive subcutaneous emphysema. In addition a CT of the neck and chest was completed confirming exte nsive left sided subcutaneous emphysema and left-sided pneumothorax. The patient was admitted for evaluation and treatment. Thoracic surgery have been consulted they are planning for VATS procedure on the left side tomorrow. On specific questioning denies any dizziness lightheadedness denies any fever or chills mild chest tightness is present with shortness of breath not much change Objective - Vital Signs Vital signs: Vital Signs Temp 97.5 F L 11/05/21 04:00 Pulse 100 11/05/21 08:26 Resp 20 11/05/21 04:00 BP 136/72 11/05/21 04:00 Pulse Ox 95 11/05/21 04:00 FiO2 Intake & Output 11/04/21 11/05/21 11/05/21 18:59 06:59 18:59 Intake Total 360 Balance 360 Intake: Oral 360 Other: # Voids 1 2 - Exam Eyes: EOMI, PERRLA Ears: bilateral: normal - Neck Neck: normal ROM Carotids: bilateral: upstroke normal Thyroid: bilateral: normal size - Respiratory Respiratory: right: CTA, left: diminished (Extensive subcu emphysema anterior part of the chest shoulder and back), dullness - Cardiovascular Rhythm: regular Heart sounds: normal: S1, S2 - Gastrointestinal General gastrointestinal: normal bowel sounds, soft - Integumentary Integumentary: normal turgor - Neurologic Neurologic: CNII-XII intact - Musculoskeletal Musculoskeletal: gait normal, strength equal bilaterally - Psychiatric Psychiatric: A&O x's 3 - Labs CBC & Chem 7: 11/03/21 20:04 11/03/21 20:04 Assessment and Plan Assessment: Left-sided enlarging pneumothorax Mediastinal emphysema due to left pneumothorax and air leak Extensive subcutaneous emphysema on left side Severe asthma not in exacerbation Baseline COPD not in exacerbation Thrombocythemia History of smoking tobacco use BPH Plan: Surgery has been consulted for evaluation for VATS, scheduled for later on this afternoon Continue deep breathing exercises incentive spirometry Continue bronchodilator Further plan of care as per clinical response of the patient Time with Patient: Greater than 30
[2021-11-05] MEDS ORDERED: ONDANSETRON 4 MG/2 ML VIAL IVP ONE (12:41)
[2021-11-05] MEDS ORDERED: DEXAMETHASONE SOD PHOSPHATE 4 MG/ML 1 ML VIAL IV ONE (12:41)
[2021-11-05] MEDS ORDERED: MIDAZOLAM 2 MG/2 ML VIAL IVP ONE (13:53)
[2021-11-05] MEDS ORDERED: IPRATROPIUM-ALBUTEROL 3 ML NEB INHALATION STA (13:53)
[2021-11-05] MEDS ORDERED: MIDAZOLAM 2 MG/2 ML VIAL ONE (14:20)
[2021-11-05] MEDS ORDERED: PROPOFOL 10 MG/ML 20 ML VIAL IV ONE (14:20)
[2021-11-05] MEDS ORDERED: fentaNYL (PF) 50 MCG/ML 2 ML AMP ONE (14:20)
[2021-11-05] MEDS ORDERED: SUCCINYLCHOLINE CHLORIDE 100 MG/5 ML SYR IV ONE (14:20)
[2021-11-05] MEDS ORDERED: ROCURONIUM 10 MG/ML (5 ML VIAL) IV ONE (14:20)
[2021-11-05] MEDS ORDERED: DEXAMETHASONE SOD PHOSPHATE 10 MG/ML 1 ML VIAL ONE (14:20)
[2021-11-05] MEDS ORDERED: LIDOCAINE 2% INJ 20 MG/ML (2 ML VIAL) ONE (14:20)
--- NOTE | 2021-11-05 15:00 | CDI ---
Documentation Clarification Form Date: 11/05/2021 02:44:37 PM From: Anastasia WelchERNESTO henson, CCDS Admit Date: 11/03/2021 09:29:00 PM Patient Name: Khalif Hou Visit Number: [id number] Discharge Date: ATTENTION: The Clinical Documentation Specialists (CDI) and [facility] Coding Staff appreciate your assistance in clarifying documentation. Please respond to the clarification below the line at the bottom and electronically sign. The CDI & [facility] Coding staff will review the response and follow-up if needed. Please note: Queries are made part of the Legal Health Record. If you have any questions, please contact the author of this message via ITS. Dr. Chandler Worley: The patient presented to the ED with SOB with a history of a recent spontaneous pneumothorax on the left who had a Chest Tube that was pulled out accidentally, was SOB 2 days ago, swelling to the left side of his face, neck & chest wall area. Had audible SOB and has a history of End Stage COPD. Based on this information and the findings below, is there an additional diagnosis that is clinically appropriate for this patient? History/Risk Factors per the 11/04 Cardiothoracic Surgeon's Consult: Asthma, End Stage COPD, Thrombocythemia, BPH, Anxiety, Former smoker. Clinical Indicators: Presented as above. Admit with Pneumothorax on the Left, Subcutaneous Emphysema, Dehydration, Tachycardia. 11/03 VS: T 98.5, P 121, 118, 116; R 22, 18; BP 159/93, PO 97 RA, 95 RA. 11/05 VS: T 98.6, P 117, R 20, BP 129/89, PO 95 3Lnc 11/03 LAB: RBC 3.83, Lymphocytes 0.8; Na 135, CO2 29, Creatinine 0.65, glucose 134, Creatine Kinase 214, Total Creatine Kinase 223, CKMB 4.3 11/03 CXR: Extensive soft tissue air over the chest is increased compared to old exam. There is clearing of infiltrate and atelectasis left mid-lung compared to old exam. There is possible new small left side pneumothorax along the lower lateral chest wall. 11/03 CT Chest: Extensive soft tissue air involving the neck and left side of the chest which is significantly increased compared to last exam. There is a small left sided pneumothorax slightly increased compared to old exam. There is significant clearing of the infiltrate in the left lung compared to old exam. There is some new mild mediastinal air compared to old exam. Treatment 11/03: O2 2Lnc, IV Sarbjit 4 mg q8H/prn, INH Duoneb 3 ml x1. 11/04: INH Duoneb 3 ml q6H, IV Decadron 4 mg x1, IV Lactated Ringers 1,000 mls @ 20 mls/hr q24H. Is there an additional diagnosis that is clinically appropriate for this patient? Other Diagnosis, please specify: left sided Pneumothorax (Template Last Revised: July 2020) MTDD
[2021-11-05] MEDS ORDERED: BUPIVACAINE (PF) 0.5% 30 ML VIAL SQ ONE ×2 (15:32)
[2021-11-05] MEDS ORDERED: LACTATED RINGERS 1,000 ML IV ONE (16:36)
[2021-11-05 18:13] LABS: Glucose,Whole Blood 177 mg/dL (70-110)
--- NOTE | 2021-11-05 18:32 | P.OP ---
Date of Procedure: 11/05/21 Preoperative Diagnosis: Recurrent left sided pneumothorax Postoperative Diagnosis: Same Procedure(s) Performed: 1. Bronchoscopy 2. Left video assisted thorascopy with left upper lobe wedge resection x 2 3. Mechanical pleurodesis Implants: #[id number] chest tube Anesthesia: [place] Surgeon: Crow Nur Estimated Blood Loss (ml): 50 Pathology: other (left upper lobe x 2) Condition: stable Disposition: ICU Indications for Procedure: This patient is a 71 year-old male who presented with his second episode of spontaneous pneumothorax on the left side. This time he had a basilar pneumothorax with significant subcutaneous emphysema. In the recent past he was admitted with a left sided pneumothorax which was managed with a chest tube. We recommended VATs, apical wedge resection and pleurodesis to prevent another episode and the patient was in agreement. All risks, benefits and alternatives were discussed with the patient and his . Operative Findings: Extremely difficult intubation from subcutaneous emphysema and airway edema. Significant adhesions at the apex. Small area anterior on the left upper lobe which was leaking. Unclear if this was from adhesiolysis but my thought was that this was more significant and could have been the culprit for his recurrent pneumothorax. Description of Procedure: The patient underwent radial arterial line placement in the pre-operative suite and he was brought back to the operating room and placed in the supine position. He was an extremely difficult intubation and we were only able to intubate with a #35 DEBI. Once intubated a diagnostic bronchoscopy was performed which revealed a normal tracheobroncial tree with small amount of secretions and no evidence of bronchopleual fistula. The patient was then positioned in the right lateral decubitus position and all pressure points were padded. We made a 2cm incision below the scapula and gained entry into the pleural cavity under direct vision once the left lung was isolated. We placed two additional ports in the 6th and 9th intercostal space anterior and mid axillary line respectively. An intercostal nerve block was performed in the 6,7 and 9th spaces using 0.25% marcaine. There was significant adhesions at the apex. These were taken down bluntly. We did have some difficulty obtaining good lung isolation at time and the ETT was checked and re-positioned multiple times. Once we had good isolation I performed a wedge resection of the left upper lobe apex using multiple firings of the endo-ROSHAN purple load. This was sent to pathology. There was an area on the anterior surface of the upper lobe that appear to have a hole. A leak test was used to confirm the exact location of the hole. This was wedged out using multiple firings of the stapler. Another leak test was performed by submerging the entire lung underwater and ventilating it. This was negative. We then took multiple scratch pads and roughed up the parietal pleura effectively creating a mechanical pleurodesis. A 28F chest tube was inserted via the inferior most incision and all the left lung was re-expanded and two lung ventilation was resumed. The other incisions were closed in layers of vicryl and glue. The patient was transferred to ICU still intubated. The DEBI was switched over to a single lumen tube. He had a small air leak but otherwise tolerated the procedure well. All counts were correct.
--- NOTE | 2021-11-05 18:47 | XR ---
EXAMINATION TYPE: XR chest 1V portable DATE OF EXAM: 11/05/2021 COMPARISON: Yesterday HISTORY: Tube placement. Respiratory failure. TECHNIQUE: Single view FINDINGS: The endotracheal tube is 1.8 cm from the rosalba. There is left-sided chest tube with the ti p at the left lung apex. No pneumothorax. There is extensive soft tissue air over the left chest and at the base of the neck bilaterally. Heart size is normal. There is nasogastric tube in the stomach. No heart failure. No pulmonary consolidation. IMPRESSION: There is apparent clearing of the small pneumothorax on the left lateral chest wall benita red to yesterday. Extensive soft tissue air unchanged.
[2021-11-05 19:06] LABS: ABG Base Excess 1.8 mmol/L; ABG HCO3 28 mmol/L (21-25); ABG PCO2 50 mmHg (35-45); ABG PH 7.35 (7.35-7.45); ABG PO2 369 mmHg (83-108); ABG TCO2 29 mmol/L (19-24); Allen Test Performed? Yes
[2021-11-05] MEDS: DEXAMETHASONE SOD PHOSPHATE 4 MG/ML 1 ML VIAL IVP SCH ×2 (19:22→23:21)
[2021-11-05 20:22] LABS: ABG Base Excess 2.4 mmol/L; ABG HCO3 27 mmol/L (21-25); ABG Oxygen Saturation 99.8 % (94-97); ABG PCO2 44 mmHg (35-45); ABG PO2 200 mmHg (83-108); ABG TCO2 29 mmol/L (19-24); Allen Test Performed? Yes
[2021-11-05] MEDS: CHLORHEXIDINE GLUCONATE 15 ML CUP MUCOUS MEM SCH (20:57)
[2021-11-05] MEDS: fentaNYL (PF) 50 MCG/ML 2 ML AMP IVP PRN (21:40)
[2021-11-06 00:08] LABS: ABG HCO3 29 mmol/L (21-25); ABG Oxygen Saturation 97.8 % (94-97); ABG PCO2 46 mmHg (35-45); ABG PH 7.41 (7.35-7.45); ABG PO2 91 mmHg (83-108); ABG TCO2 30 mmol/L (19-24); Allen Test Performed? Yes
[2021-11-06] MEDS: IPRATROPIUM-ALBUTEROL 3 ML NEB INHALATION SCH ×4 (01:36→19:27)
[2021-11-06 05:06] LABS: Glucose,Whole Blood 175 mg/dL (70-110)
[2021-11-06] MEDS: ALPRAZolam 0.5 MG TAB PO PRN ×3 (05:16→21:19)
[2021-11-06] MEDS: DEXAMETHASONE SOD PHOSPHATE 4 MG/ML 1 ML VIAL IVP SCH ×4 (05:23→23:32)
[2021-11-06 05:32] LABS: ABG Base Excess 4.7 mmol/L; ABG HCO3 29 mmol/L (21-25); ABG Oxygen Saturation 97.3 % (94-97); ABG PCO2 42 mmHg (35-45); ABG PH 7.44 (7.35-7.45); ABG PO2 94 mmHg (83-108); ABG TCO2 30 mmol/L (19-24); Allen Test Performed? Yes
[2021-11-06] MEDS: INSULIN ASPART (NovoLOG) 100 UNIT/ML VIAL SQ SCH ×4 (05:59→23:39)
[2021-11-06] MEDS ORDERED: CHLORHEXIDINE GLUCONATE 15 ML CUP MUCOUS MEM SCH (06:36)
[2021-11-06] MEDS ORDERED: HEPARIN SODIUM,PORCINE/PF 5,000 UNIT/0.5 ML SYRINGE SQ SCH (06:36)
[2021-11-06] MEDS: SENNOSIDES 8.6 MG TAB NG-TUBE SCH ×2 (06:40→20:31)
[2021-11-06] MEDS ORDERED: ARTIFICIAL TEARS-HYPROMELLOSE DROPS 15 ML BTL BOTH EYES PRN (07:00)
[2021-11-06 08:11] LABS: Basophils % (A) 0 %; Eosinophils # (A) 0.1 k/uL (0-0.7); Eosinophils % (A) 1 %; HGB 11.9 gm/dL (13.0-17.5); Lymphocytes # (A) 0.5 k/uL (1.0-4.8); Lymphocytes % (A) 7 %; MCH 36.1 pg (25.0-35.0); MCV 109.5 fL (80.0-100.0); Macrocytosis Moderate; Mean Platelet Volume 7.3; Monocytes # (A) 0.3 k/uL (0-1.0); Monocytes % (A) 4 %; Neutrophils # (A) 6.4 k/uL (1.3-7.7); Neutrophils % (A) 88 %; Platelet Count 440 k/uL (150-450); RBC 3.29 m/uL (4.30-5.90); RDW 12.7 % (11.5-15.5); WBC 7.3 k/uL (3.8-10.6)
--- NOTE | 2021-11-06 08:18 | XR ---
EXAMINATION TYPE: XR chest 1V portable DATE OF EXAM: 11/06/2021 COMPARISON: X-ray dated 11/05/2021 HISTORY: Tube placement TECHNIQUE: Single frontal view of the chest is obtained. FINDINGS: The tip of the endotracheal tube is about 2.5 cm proximal to the rosalba. NG tube is seen with the tip is in the stomach. Left intercostal drainage tube with the tip superimposed on the left lung apex. Persistent extensive left chest wall and lower neck soft tissue emphysema. Unchanged lungs. No sizabl e pleural effusion. No identifiable pneumothorax, difficult to identify in the background of extensiv e soft tissue emphysema. Unchanged cardiomediastinal silhouette and bony thoracic cage. IMPRESSION: As above.
[2021-11-06 08:34] LABS: African American GFR (CKD) >90 (>60 ml/min/1.73 sqM); Anion Gap 6 mmol/L; Blood Urea Nitrogen 13 mg/dL (9-20); Calcium 8.1 mg/dL (8.4-10.2); Carbon Dioxide 28 mmol/L (22-30); Chloride 106 mmol/L (98-107); Glucose 164 mg/dL (74-99); Non-African American GFR(CKD) >90 (>60 ml/min/1.73 sqM); Potassium 4.2 mmol/L (3.5-5.1); Sodium 140 mmol/L (137-145)
[2021-11-06] MEDS: TAMSULOSIN 0.4 MG CAP.ER.24H PO SCH (08:44)
[2021-11-06] MEDS: HEPARIN SODIUM,PORCINE/PF 5,000 UNIT/0.5 ML SYRINGE SQ SCH ×3 (08:44→23:33)
[2021-11-06] MEDS: CHLORHEXIDINE GLUCONATE 15 ML CUP MUCOUS MEM SCH ×2 (08:44→20:32)
[2021-11-06] MEDS: HYDROXYUREA 500 MG CAP PO SCH ×2 (08:44→21:19)
[2021-11-06] MEDS: PANTOPRAZOLE 40 MG/10 ML VIAL IV SCH (08:44)
[2021-11-06] MEDS: fentaNYL (PF) 50 MCG/ML 2 ML AMP IVP PRN (09:26)
--- NOTE | 2021-11-06 09:52 | P.PN ---
Subjective Progress Note Date: 11/06/21 Principal diagnosis: Recurrent left-sided basilar pneumothorax with extensive subcutaneous emphysema. Previous medical history of asthma, thrombocythemia, BPH, previous tobacco de pendence POD #1 bronchoscopy, left video-assisted thoracoscopy with left upper lobe wedge resection 2, mechanical pleurodesis The patient was seen and examined this morning laying in bed in the intensive care unit still mechanically ventilated in no acute distress. He is alert and following all commands on just a touch of propofol. Remains in sinus rhythm, hemodynamically stable. Left pleural chest tube present to continuous wall suction, no air leak present this morning. Nods his head yes when asked if pain is controlled. No other new concerns. Objective - Vital Signs Vital signs: Vital Signs Temp 97.7 F 11/06/21 04:00 Pulse 87 11/06/21 07:00 Resp 15 11/06/21 07:00 BP 100/68 11/06/21 07:00 Pulse Ox 96 11/06/21 07:00 FiO2 40 11/06/21 07:43 Intake & Output 11/05/21 11/06/21 11/06/21 18:59 06:59 18:59 Intake Total 0690.416 5594.853 Output Total 275 881 Balance 1306.561 322.853 Weight 77.7 kg Intake: IV 1580 1030 0.9 130 1030 Intake, IV Titration 1.561 173.853 Amount ceFAZolin 2 gm In Sodium 50 Chloride 0.9% 50 ml @ 100 mls/hr IVPB Q8HR [facility] Rx# :[id number] propofoL 1,000 mg In 1.561 123.853 Empty Bag 1 bag @ 5 MCG/ KG/MIN 2.341 mls/hr IV . Q24H [facility] Rx#:[id number] Output: Chest Tube Drainage 31 Left 31 Urine 225 850 Estimated Blood Loss 50 Other: Voiding Method Indwelling Catheter Indwelling Catheter - Exam CONSTITUTIONAL: Appears comfortable, cooperative, no acute distress RESPIRATORY: Lungs sounds diminished bilaterally. Respirations even, nonlabored. Currently on mechanical ventilation with assist control mode, FiO2 40%, tidal volume 500, respiratory rate 14, PEEP 8. CARDIOVASCULAR: S1, S2 present. Regular rate and rhythm, sinus rhythm on telemetry. Palpable peripheral pulses bilaterally. No edema present. No calf pain or tenderness noted. SCDs present. GASTROINTESTINAL: Abdomen soft, nontender, nondistended. Active bowel sounds present 4 quadrants. OG tube present low intermittent suction with minimal drainage GENITOURINARY: Rivero present draining clear, yellow urine. Output 30-100 mL/h overnight INTEGUMENTARY: Skin is warm and dry with evidence of good perfusion. Thoracic incisions well approximated NEUROLOGIC: Cranial nerves II through XII intact MUSKULOSKELETAL: Able to move all extremities, strength equal bilaterally PSYCHIATRIC: Alert and following commands INVASIVE LINES AND TUBES: Left pleural chest tube present and connected to wall suction, no air leak present, 31 mL serosanguineous drainage overnight, 110 mL since surgery - Allied health notes Allied health notes reviewed: nursing - Labs CBC & Chem 7: 11/06/21 07:49 11/06/21 07:49 Labs: Abnormal Lab Results - Last 24 Hours (Table) 11/05/21 11/05/21 11/05/21 Range/Units 18:12 19:04 20:18 RBC (4.30-5.90) m/uL Hgb (13.0-17.5) gm/dL Hct (39.0-53.0) % MCV (80.0-100.0) fL MCH (25.0-35.0) pg Lymphocytes # (1.0-4.8) k/uL ABG pCO2 50 H (35-45) mmHg ABG pO2 369 H 200 H (83-108) mmHg ABG HCO3 28 H 27 H (21-25) mmol/L ABG Total CO2 29 H 29 H (19-24) mmol/L ABG O2 Saturation 100.0 H 99.8 H (94-97) % POC Glucose (mg/dL) 177 H (70-110) mg/dL 11/06/21 11/06/21 11/06/21 Range/Units 00:02 05:05 05:24 RBC (4.30-5.90) m/uL Hgb (13.0-17.5) gm/dL Hct (39.0-53.0) % MCV (80.0-100.0) fL MCH (25.0-35.0) pg Lymphocytes # (1.0-4.8) k/uL ABG pCO2 46 H (35-45) mmHg ABG pO2 (83-108) mmHg ABG HCO3 29 H 29 H (21-25) mmol/L ABG Total CO2 30 H 30 H (19-24) mmol/L ABG O2 Saturation 97.8 H 97.3 H (94-97) % POC Glucose (mg/dL) 175 H (70-110) mg/dL 11/06/ Range/Units 07:49 RBC 3.29 L (4.30-5.90) m/uL Hgb 11.9 L (13.0-17.5) gm/dL Hct 36.0 L (39.0-53.0) % MCV 109.5 H (80.0-100.0) fL MCH 36.1 H (25.0-35.0) pg Lymphocytes # 0.5 L (1.0-4.8) k/uL ABG pCO2 (35-45) mmHg ABG pO2 (83-108) mmHg ABG HCO3 (21-25) mmol/L ABG Total CO2 (19-24) mmol/L ABG O2 Saturation (94-97) % POC Glucose (mg/dL) (70-110) mg/dL - Imaging and Cardiology Chest x-ray: report reviewed, image reviewed Assessment and Plan Assessment: 1. Recurrent left-sided basilar pneumothorax with extensive subcutaneous emphysema, status post bronchoscopy, left video-assisted thoracoscopy with left upper lobe wedge resection 2, mechanical pleurodesis 2. Difficult intubation, maintained on ventilator overnight 3. Asthma 4. Thrombocythemia 5. BPH 6. Previous tobacco dependence Plan: 1. Wean from mechanical ventilation and extubated as tolerated 2. Once extubated, wean O2 as tolerated. Encourage incentive spirometry 10 times every hour while awake. Bronchodilators per pulmonology 3. Will continue left pleural chest tube to continuous wall suction for 48 hours 4. Once extubated Will increase activity, ambulate as tolerated 5. Pain control with current medication regimen 6. We'll continue to monitor daily labs and x-rays 7. Rivero catheter to be discontinued once extubated 8. Medical management of other comorbidities per primary care service
--- NOTE | 2021-11-06 10:48 | P.PN ---
Subjective Progress Note Date: 11/06/21 Principal diagnosis: Status post lung resection with mechanical pleurodesis. Progress note dated 11/06/2021. This is a 71-year-old male who was admitted to the hospital on November 03. He came with a spontaneous left-sided pneumothorax. It is left-sided pneumothorax previously made. He went to the operating room on November 05, and had a lung resection on the left side, mechanical pleurodesis. Currently, he's on the mechanical ventilator, volume assist control mode, rate 14, tidal volume 500, FiO2 40%, PEEP of 8. Blood gases show pO2 of 94, pCO2 42, and pH is 7.44. Patient is getting saline at 75 mL an hour, propofol at 25 mcg/kg/m. Today, we will do a daily interruption of sedation, with spontaneous breathing trial, and we'll attempt to get the patient extubated. He does have a left-sided chest tube in place. White count 7.3, hemoglobin 11.9, hematocrit 36, platelet count 440,000. Sodium 140, potassium 4.2, chlorides 106, CO2 28, BUN 13, creatinine 0.55. Chest x-ray shows extensive left chest wall and lower neck soft tissue emphysema. No sizable pleural effusion or identifiable pneumothorax noted. Objective - Vital Signs Vital signs: Vital Signs Temp 98.4 F 11/06/21 08:00 Pulse 85 11/06/21 10:30 Resp 16 11/06/21 10:00 BP 105/77 11/06/21 10:00 Pulse Ox 96 11/06/21 10:00 FiO2 40 11/06/21 09:48 Intake & Output 11/05/21 11/06/21 11/06/21 18:59 06:59 18:59 Intake Total 9025.593 6905.853 338.313 Output Total 275 881 250 Balance 1306.561 322.853 88.313 Weight 77.7 kg Intake: IV 1580 1030 225 0.9 130 1030 225 Intake, IV Titration 1.561 173.853 113.313 Amount ceFAZolin 2 gm In Sodium 50 50 Chloride 0.9% 50 ml @ 100 mls/hr IVPB Q8HR [facility] Rx# :[id number] propofoL 1,000 mg In 1.561 123.853 63.313 Empty Bag 1 bag @ 5 MCG/ KG/MIN 2.341 mls/hr IV . Q24H [facility] Rx#:[id number] Output: Chest Tube Drainage 31 Left 31 Urine 225 850 250 Estimated Blood Loss 50 Other: Voiding Method Indwelling Catheter Indwelling Catheter - Exam No acute distress, sedated, with an orally placed endotracheal tube, and NG tube. HEENT examination is grossly unremarkable. Neck supple. Full range of motion. No adenopathy thyromegaly or neck vein distention. Cardiovascular examination reveals regular rhythm rate. S1-S2 normal. No S3 or S4. No discernible murmur noted. Heart rate 92 bpm. Lungs reveal bilateral equal breath sounds. Scattered rhonchi are noted. No wheezes or crackles. A left-sided chest tube is noted. Breath sounds are equal bilaterally. Abdomen soft bowel sounds are heard. No masses or tenderness. Extremities are intact. No cyanosis clubbing or edema. Skin is without rash or lesion. Neurologic examination cannot be adequately assessed as the patient's currently sedated. - Labs CBC & Chem 7: 11/06/21 07:49 11/06/21 07:49 Labs: Abnormal Lab Results - Last 24 Hours (Table) 11/05/21 11/05/21 11/05/21 Range/Units 18:12 19:04 20:18 RBC (4.30-5.90) m/uL Hgb (13.0-17.5) gm/dL Hct (39.0-53.0) % MCV (80.0-100.0) fL MCH (25.0-35.0) pg Lymphocytes # (1.0-4.8) k/uL ABG pCO2 50 H (35-45) mmHg ABG pO2 369 H 200 H (83-108) mmHg ABG HCO3 28 H 27 H (21-25) mmol/L ABG Total CO2 29 H 29 H (19-24) mmol/L ABG O2 Saturation 100.0 H 99.8 H (94-97) % Creatinine (0.66-1.25) mg/dL Glucose (74-99) mg/dL POC Glucose (mg/dL) 177 H (70-110) mg/dL Calcium (8.4-10.2) mg/dL 11/06/21 11/06/21 11/06/21 Range/Units 00:02 05:05 05:24 RBC (4.30-5.90) m/uL Hgb (13.0-17.5) gm/dL Hct (39.0-53.0) % MCV (80.0-100.0) fL MCH (25.0-35.0) pg Lymphocytes # (1.0-4.8) k/uL ABG pCO2 46 H (35-45) mmHg ABG pO2 (83-108) mmHg ABG HCO3 29 H 29 H (21-25) mmol/L ABG Total CO2 30 H 30 H (19-24) mmol/L ABG O2 Saturation 97.8 H 97.3 H (94-97) % Creatinine (0.66-1.25) mg/dL Glucose (74-99) mg/dL POC Glucose (mg/dL) 175 H (70-110) mg/dL Calcium (8.4-10.2) mg/dL 11/06/21 11/06/21 Range/Units 07:49 07:49 RBC 3.29 L (4.30-5.90) m/uL Hgb 11.9 L (13.0-17.5) gm/dL Hct 36.0 L (39.0-53.0) % MCV 109.5 H (80.0-100.0) fL MCH 36.1 H (25.0-35.0) pg Lymphocytes # 0.5 L (1.0-4.8) k/uL ABG pCO2 (35-45) mmHg ABG pO2 (83-108) mmHg ABG HCO3 (21-25) mmol/L ABG Total CO2 (19-24) mmol/L ABG O2 Saturation (94-97) % Creatinine 0.55 L (0.66-1.25) mg/dL Glucose 164 H (74-99) mg/dL POC Glucose (mg/dL) (70-110) mg/dL Calcium 8.1 L (8.4-10.2) mg/dL Assessment and Plan Assessment: Postop day #1, status post video-assisted left lung resection and mechanical pleurodesis, for recurrent left-sided pneumothorax Routine postoperative ventilator management, with anticipation of possible extubation today. History of asthma/COPD. Previous history of tobacco use. History of thrombocythemia. History of BPH. Plan: Plan dated 11/06/2021. The patient will have a daily interruption of sedation, and a spontaneous breathing trial. We'll give the patient another dose of Decadron IV, 6 mg. He apparently was a difficult intubation. We'll await weaning parameters, and a cuff leak test, to make a determination about extubation. We'll follow. Once he leaves the intensive care unit, he can be found by his regular pulmonary doctor. She will recommendations are made. Prognosis is guarded. Time with Patient: Greater than 30
[2021-11-06 12:48] LABS: Glucose,Whole Blood 144 mg/dL (70-110)
[2021-11-06] MEDS: ACETAMINOPHEN TAB 325 MG TAB PO PRN ×2 (13:24→18:48)
[2021-11-06] MEDS: SODIUM CHLORIDE 0.9% 1,000 ML IV SCH ×2 (16:50→23:01)
[2021-11-06 16:51] LABS: Glucose,Whole Blood 227 mg/dL (70-110)
[2021-11-06] MEDS: LACTATED RINGERS 1,000 ML IV SCH (23:01)
[2021-11-06 23:38] LABS: Glucose,Whole Blood 166 mg/dL (70-110)
[2021-11-07] MEDS: IPRATROPIUM-ALBUTEROL 3 ML NEB INHALATION SCH ×4 (01:39→21:37)
[2021-11-07 06:17] LABS: Glucose,Whole Blood 182 mg/dL (70-110)
[2021-11-07] MEDS: ACETAMINOPHEN TAB 325 MG TAB PO PRN (06:19)
[2021-11-07] MEDS: ALPRAZolam 0.5 MG TAB PO PRN ×3 (06:20→22:58)
[2021-11-07] MEDS: INSULIN ASPART (NovoLOG) 100 UNIT/ML VIAL SQ SCH ×4 (06:20→21:40)
[2021-11-07] MEDS: DEXAMETHASONE SOD PHOSPHATE 4 MG/ML 1 ML VIAL IVP SCH (06:20)
--- NOTE | 2021-11-07 07:46 | P.PN ---
Subjective Progress Note Date: 11/07/21 Principal diagnosis: Recurrent left-sided basilar pneumothorax with extensive subcutaneous emphysema. Previous medical history of asthma, thrombocythemia, BPH, previous tobacco de pendence POD #2 bronchoscopy, left video-assisted thoracoscopy with left upper lobe wedge resection 2, mechanical pleurodesis The patient was seen and examined this morning sitting up in a recliner in no acute distress eating breakfast. He was successfully extubated yesterday morning at 10:20 AM. Remains in sinus rhythm and hemodynamically stable. Does complain of some pain at his chest tube site. Maintaining good oxygen saturation and achieving 2500 mL on his incentive spirometry. Left pleural chest tube present with 30 mL serosanguineous drainage in the last 24 hours although he does have some drainage around the chest tube site. There is no air leak, good tidaling is present. The patient was a little confused yesterday afternoon, likely due to lingering sedation so decision was made to keep him in the intensive care unit. We will transfer him out of the unit today. Objective - Vital Signs Vital signs: Vital Signs Temp 97.8 F 11/07/21 04:00 Pulse 86 11/07/21 07:00 Resp 19 11/07/21 07:00 BP 132/85 11/07/21 07:00 Pulse Ox 96 11/07/21 06:00 FiO2 40 11/06/21 09:48 Intake & Output 11/06/21 11/07/21 11/07/21 18:59 06:59 18:59 Intake Total 938.313 900 75 Output Total 400 1480 0 Balance 538.313 -580 75 Weight 79.2 kg Intake: IV 825 900 75 0.9 825 900 75 Intake, IV Titration 113.313 Amount ceFAZolin 2 gm In Sodium 50 Chloride 0.9% 50 ml @ 100 mls/hr IVPB Q8HR [facility] Rx# :[id number] propofoL 1,000 mg In 63.313 Empty Bag 1 bag @ 5 MCG/ KG/MIN 2.341 mls/hr IV . Q24H [facility] Rx#:[id number] Output: Chest Tube Drainage 30 Left 30 Urine 400 1450 0 Other: Voiding Method Indwelling Catheter Indwelling Catheter - Exam CONSTITUTIONAL: Appears comfortable, cooperative, no acute distress RESPIRATORY: Lungs sounds diminished bilaterally. Respirations even, nonlabored. Currently on 3 L nasal cannula with oxygen saturation 97%. Able to achieve 2500 mL on his incentive spirometry. Strong cough CARDIOVASCULAR: S1, S2 present. Regular rate and rhythm, sinus rhythm on telemetry. Palpable peripheral pulses bilaterally. No edema present. No calf pain or tenderness noted. SCDs present. GASTROINTESTINAL: Abdomen soft, nontender, nondistended. Active bowel sounds present 4 quadrants. Tolerating diet GENITOURINARY: Rivero present draining clear, yellow urine. Output 1850 mL in the last 24 hours INTEGUMENTARY: Skin is warm and dry with evidence of good perfusion. Thoracic incisions well approximated NEUROLOGIC: Cranial nerves II through XII intact MUSKULOSKELETAL: Able to move all extremities, strength equal bilaterally PSYCHIATRIC: Alert and following commands INVASIVE LINES AND TUBES: Left pleural chest tube present and connected to wall suction, no air leak present, 30 mL serosanguineous drainage in the last 24 hours - Labs CBC & Chem 7: 11/06/21 07:49 11/06/21 07:49 Labs: Abnormal Lab Results - Last 24 Hours (Table) 11/06/21 11/06/21 11/06/21 Range/Units 07:49 07:49 12:47 RBC 3.29 L (4.30-5.90) m/uL Hgb 11.9 L (13.0-17.5) gm/dL Hct 36.0 L (39.0-53.0) % MCV 109.5 H (80.0-100.0) fL MCH 36.1 H (25.0-35.0) pg Lymphocytes # 0.5 L (1.0-4.8) k/uL Creatinine 0.55 L (0.66-1.25) mg/dL Glucose 164 H (74-99) mg/dL POC Glucose (mg/dL) 144 H (70-110) mg/dL Calcium 8.1 L (8.4-10.2) mg/dL 11/06/21 11/06/21 11/07/21 Range/Units 16:50 23:37 06:15 RBC (4.30-5.90) m/uL Hgb (13.0-17.5) gm/dL Hct (39.0-53.0) % MCV (80.0-100.0) fL MCH (25.0-35.0) pg Lymphocytes # (1.0-4.8) k/uL Creatinine (0.66-1.25) mg/dL Glucose (74-99) mg/dL POC Glucose (mg/dL) 227 H 166 H 182 H (70-110) mg/dL Calcium (8.4-10.2) mg/dL - Imaging and Cardiology Chest x-ray: image reviewed Assessment and Plan Assessment: 1. Recurrent left-sided basilar pneumothorax with extensive subcutaneous emphysema, status post bronchoscopy, left video-assisted thoracoscopy with left upper lobe wedge resection 2, mechanical pleurodesis 2. Difficult intubation, maintained on ventilator overnight 3. Asthma 4. Thrombocythemia 5. BPH 6. Previous tobacco dependence Plan: 1. Keep left pleural chest tube to continuous wall suction until midnight, then placed to waterseal 2. Wean O2 as tolerated. Encourage incentive spirometry 10 times every hour while awake. Bronchodilators per pulmonology 3. Increase activity, ambulate as tolerated 4. Pain control with current medication regimen 5. We'll continue to monitor daily labs and x-rays 6. DC Rivero catheter 7. Will place transfer orders for 3 [facility] cardiac stepdown unit. May transfer when bed available 8. Medical management of other comorbidities per primary care service
--- NOTE | 2021-11-07 08:18 | P.PN ---
Subjective Principal diagnosis: Subcutaneous emphysema The patient is a 68-year-old male with spontaneous pneumothorax several weeks ago with chest tube. As the day after and removed his chest tube stitches, he started developing facial swelling resulted in subcutaneous emphysema. The patient was followed up and is now stabilizing. Less pain Thoracoscopies postop day #1 Objective - Vital Signs Vital signs: Vital Signs Temp 97.8 F 11/07/21 04:00 Pulse 70 11/07/21 08:00 Resp 19 11/07/21 07:00 BP 132/85 11/07/21 07:00 Pulse Ox 96 11/07/21 07:49 FiO2 40 11/06/21 09:48 Intake & Output 11/06/21 11/07/21 11/07/21 18:59 06:59 18:59 Intake Total 938.313 900 75 Output Total 400 1480 0 Balance 538.313 -580 75 Weight 79.2 kg Intake: IV 825 900 75 0.9 825 900 75 Intake, IV Titration 113.313 Amount ceFAZolin 2 gm In Sodium 50 Chloride 0.9% 50 ml @ 100 mls/hr IVPB Q8HR [facility] Rx# :[id number] propofoL 1,000 mg In 63.313 Empty Bag 1 bag @ 5 MCG/ KG/MIN 2.341 mls/hr IV . Q24H [facility] Rx#:[id number] Output: Chest Tube Drainage 30 Left 30 Urine 400 1450 0 Other: Voiding Method Indwelling Catheter Indwelling Catheter - Constitutional General appearance: Present: average body habitus - EENT Eyes: Absent: abnormal pupil - Neck Neck: Absent: lymphadenopathy - Respiratory Respiratory: bilateral: diminished - Cardiovascular Rhythm: regular Heart sounds: normal: S1, S2 Abnormal Heart Sounds: Absent: S3 Gallop - Gastrointestinal General gastrointestinal: Present: soft. Absent: tenderness - Labs CBC & Chem 7: 11/06/21 07:49 11/06/21 07:49 Labs: Abnormal Lab Results - Last 24 Hours (Table) 11/06/21 11/06/21 11/06/21 Range/Units 07:49 12:47 16:50 Creatinine 0.55 L (0.66-1.25) mg/dL Glucose 164 H (74-99) mg/dL POC Glucose (mg/dL) 144 H 227 H (70-110) mg/dL Calcium 8.1 L (8.4-10.2) mg/dL 11/06/21 11/07/21 Range/Units 23:37 06:15 Creatinine (0.66-1.25) mg/dL Glucose (74-99) mg/dL POC Glucose (mg/dL) 166 H 182 H (70-110) mg/dL Calcium (8.4-10.2) mg/dL Assessment and Plan (1) Subcutaneous emphysema Current Visit: Yes Status: Acute Code(s): T79.7XXA - TRAUMATIC SUBCUTANEOUS EMPHYSEMA, INITIAL ENCOUNTER SNOMED Code(s): 3770749 Plan: The patient is status post thoracoscopy with pleurodesis. We'll continue to follow Time with Patient: Less than 30
[2021-11-07] MEDS: PANTOPRAZOLE 40 MG/10 ML VIAL IV SCH (08:19)
[2021-11-07] MEDS: HEPARIN SODIUM,PORCINE/PF 5,000 UNIT/0.5 ML SYRINGE SQ SCH ×3 (08:19→23:34)
[2021-11-07] MEDS: TAMSULOSIN 0.4 MG CAP.ER.24H PO SCH (08:19)
[2021-11-07] MEDS: HYDROXYUREA 500 MG CAP PO SCH ×2 (08:21→20:29)
--- NOTE | 2021-11-07 08:22 | XR ---
EXAMINATION TYPE: XR chest 1V portable DATE OF EXAM: 11/07/2021 COMPARISON: X-ray dated 11/06/2021 HISTORY: Tube placement TECHNIQUE: Single frontal view of the chest is obtained. FINDINGS: Interval removal of the endotracheal tube and NG tube. Left intercostal drainage tube with the tip superimposed on the left lung apex. Persistent extensive soft tissue emphysema along the left side of the chest wall and the inferior asp ect of the neck. No progressive pulmonary consolidation. No obvious pneumothorax yet difficult to exclude on the left side due to overlying soft tissue emphysema. Unchanged cardiomediastinal silhouette and bony thoracic cage. IMPRESSION: Interval changes as described above.
[2021-11-07 08:55] LABS: ALT 17 U/L (4-49); AST 20 U/L (17-59); African American GFR (CKD) >90 (>60 ml/min/1.73 sqM); Albumin 3.1 g/dL (3.5-5.0); Alkaline Phosphatase 50 U/L (38-126); Anion Gap 6 mmol/L; Blood Urea Nitrogen 14 mg/dL (9-20); Calcium 7.9 mg/dL (8.4-10.2); Carbon Dioxide 27 mmol/L (22-30); Chloride 107 mmol/L (98-107); Glucose 154 mg/dL (74-99); Non-African American GFR(CKD) >90 (>60 ml/min/1.73 sqM); Potassium 4.1 mmol/L (3.5-5.1); Sodium 140 mmol/L (137-145); Total Bilirubin 0.4 mg/dL (0.2-1.3); Total Protein 5.6 g/dL (6.3-8.2)
--- NOTE | 2021-11-07 08:56 | P.PN ---
Subjective Principal diagnosis: Subcutaneous emphysema The patient is a 68-year-old male with spontaneous pneumothorax several weeks ago with chest tube. As the day after and removed his chest tube stitches, he started developing facial swelling resulted in subcutaneous emphysema. The patient was followed up and is now stabilizing. Less pain Thoracoscopies postop day #2. The patient is now extubated and hemodynamically stable. Objective - Vital Signs Vital signs: Vital Signs Temp 97.8 F 11/07/21 04:00 Pulse 70 11/07/21 08:00 Resp 19 11/07/21 07:00 BP 132/85 11/07/21 07:00 Pulse Ox 96 11/07/21 07:49 FiO2 40 11/06/21 09:48 Intake & Output 11/06/21 11/07/21 11/07/21 18:59 06:59 18:59 Intake Total 938.313 900 75 Output Total 400 1480 0 Balance 538.313 -580 75 Weight 79.2 kg Intake: IV 825 900 75 0.9 825 900 75 Intake, IV Titration 113.313 Amount ceFAZolin 2 gm In Sodium 50 Chloride 0.9% 50 ml @ 100 mls/hr IVPB Q8HR [facility] Rx# :[id number] propofoL 1,000 mg In 63.313 Empty Bag 1 bag @ 5 MCG/ KG/MIN 2.341 mls/hr IV . Q24H MARIELOS Rx#:[id number] Output: Chest Tube Drainage 30 Left 30 Urine 400 1450 0 Other: Voiding Method Indwelling Catheter Indwelling Catheter - Constitutional General appearance: Present: average body habitus - EENT Eyes: Absent: abnormal pupil - Neck Neck: Absent: lymphadenopathy - Respiratory Respiratory: bilateral: diminished - Cardiovascular Rhythm: regular Heart sounds: normal: S1, S2 Abnormal Heart Sounds: Absent: S3 Gallop - Gastrointestinal General gastrointestinal: Present: soft. Absent: tenderness - Integumentary Integumentary: Absent: cellulitis - Labs CBC & Chem 7: 11/06/21 07:49 11/06/21 07:49 Labs: Abnormal Lab Results - Last 24 Hours (Table) 11/06/21 11/06/21 11/06/21 Range/Units 12:47 16:50 23:37 POC Glucose (mg/dL) 144 H 227 H 166 H (70-110) mg/dL 11/07/21 Range/Units 06:15 POC Glucose (mg/dL) 182 H (70-110) mg/dL Assessment and Plan (1) Subcutaneous emphysema Current Visit: Yes Status: Acute Code(s): T79.7XXA - TRAUMATIC SUBCUTANEOUS EMPHYSEMA, INITIAL ENCOUNTER SNOMED Code(s): 9002109 Plan: The patient is status post thoracoscopy with pleurodesis. Anticipate transfer to general medical floor. Continue bronchodilators. Patient seems very stable today.
[2021-11-07 09:00] LABS: Basophils % (A) 0 %; Eosinophils % (A) 0 %; HCT 37.2 % (39.0-53.0); HGB 12.3 gm/dL (13.0-17.5); Lymphocytes # (A) 0.6 k/uL (1.0-4.8); Lymphocytes % (A) 7 %; MCH 37.1 pg (25.0-35.0); MCV 112.5 fL (80.0-100.0); Macrocytosis Marked; Mean Platelet Volume 7.7; Monocytes # (A) 0.5 k/uL (0-1.0); Monocytes % (A) 6 %; Neutrophils # (A) 6.9 k/uL (1.3-7.7); Neutrophils % (A) 86 %; Platelet Count 485 k/uL (150-450); RBC 3.31 m/uL (4.30-5.90); RDW 13.3 % (11.5-15.5); WBC 8.1 k/uL (3.8-10.6)
--- NOTE | 2021-11-07 09:24 | P.PN ---
Subjective Progress Note Date: 11/07/21 Principal diagnosis: Status post lung resection with mechanical pleurodesis. Progress note dated 11/06/2021. This is a 71-year-old male who was admitted to the hospital on November 03. He came with a spontaneous left-sided pneumothorax. It is left-sided pneumothorax previously made. He went to the operating room on November 05, and had a lung resection on the left side, mechanical pleurodesis. Currently, he's on the mechanical ventilator, volume assist control mode, rate 14, tidal volume 500, FiO2 40%, PEEP of 8. Blood gases show pO2 of 94, pCO2 42, and pH is 7.44. Patient is getting saline at 75 mL an hour, propofol at 25 mcg/kg/m. Today, we will do a daily interruption of sedation, with spontaneous breathing trial, and we'll attempt to get the patient extubated. He does have a left-sided chest tube in place. White count 7.3, hemoglobin 11.9, hematocrit 36, platelet count 440,000. Sodium 140, potassium 4.2, chlorides 106, CO2 28, BUN 13, creatinine 0.55. Chest x-ray shows extensive left chest wall and lower neck soft tissue emphysema. No sizable pleural effusion or identifiable pneumothorax noted. Progress note dated 11/07/2021. 71-year-old male, admitted to the hospital on November 03, with a spontaneous left- sided pneumothorax. The patient went to the operating room on November 05, and had a lung resection, and mechanical pleurodesis. We saw him yesterday, he was on the mechanical ventilator. We gave him a daily interruption of sedation, and a spontaneous breathing trial, and his weaning parameters, were excellent. Hence, he was extubated, on November 06. Currently, he is doing well. He is seen today in room 258. He's on 2 L nasal cannula. He is getting saline at 75 mL an hour. He has a left chest tube in place, which is to suction. Labs today included a white count 8.1, hemoglobin 12.3, hematocrit 37.2, and count 485,000. Sodium, potassium, chloride, CO2, and BUN are all normal creatinine is a bit low at 0.59. Calcium 7.9. Albumin 3.1. Chest x-ray today shows extensive subcutaneous emphysema, but no obvious pneumothorax. Objective - Vital Signs Vital signs: Vital Signs Temp 97.5 F L 11/07/21 08:00 Pulse 84 11/07/21 09:00 Resp 16 11/07/21 09:00 BP 120/46 11/07/21 09:00 Pulse Ox 95 11/07/21 09:00 FiO2 40 11/06/21 09:48 Intake & Output 11/06/21 11/07/21 11/07/21 18:59 06:59 18:59 Intake Total 938.313 900 225 Output Total 400 1480 0 Balance 538.313 -580 225 Weight 79.2 kg Intake: IV 825 900 225 0.9 825 900 225 Intake, IV Titration 113.313 Amount ceFAZolin 2 gm In Sodium 50 Chloride 0.9% 50 ml @ 100 mls/hr IVPB Q8HR [facility] Rx# :[id number] propofoL 1,000 mg In 63.313 Empty Bag 1 bag @ 5 MCG/ KG/MIN 2.341 mls/hr IV . Q24H [facility] Rx#:[id number] Output: Chest Tube Drainage 30 0 Left 30 0 Urine 400 1450 0 Other: Voiding Method Indwelling Catheter Indwelling Catheter # Voids 0 - Exam No acute distress, oriented 3, on nasal O2 at 2 L, with a saturation of 99%. HEENT examination is grossly unremarkable. Neck supple. Full range of motion. No adenopathy thyromegaly or neck vein distention. Cardiovascular examination reveals regular rhythm rate. S1-S2 normal. No S3 or S4. No discernible murmur noted. Heart rate 84 bpm. Lungs reveal bilateral equal breath sounds. Scattered rhonchi are noted. No wheezes or crackles. A left-sided chest tube is noted. Breath sounds are equal bilaterally. Abdomen soft bowel sounds are heard. No masses or tenderness. Extremities are intact. No cyanosis clubbing or edema. Skin is without rash or lesion. Neurologic examination is brief but nonfocal. - Labs CBC & Chem 7: 11/07/21 08:01 11/07/21 08:01 Labs: Abnormal Lab Results - Last 24 Hours (Table) 11/06/21 11/06/21 11/06/21 Range/Units 12:47 16:50 23:37 RBC (4.30-5.90) m/uL Hgb (13.0-17.5) gm/dL Hct (39.0-53.0) % MCV (80.0-100.0) fL MCH (25.0-35.0) pg Plt Count (150-450) k/uL Macrocytosis Creatinine (0.66-1.25) mg/dL Glucose (74-99) mg/dL POC Glucose (mg/dL) 144 H 227 H 166 H (70-110) mg/dL Calcium (8.4-10.2) mg/dL Total Protein (6.3-8.2) g/dL Albumin (3.5-5.0) g/dL 11/07/21 11/07/21 11/07/21 Range/Units 06:15 08:01 08:01 RBC 3.31 L (4.30-5.90) m/uL Hgb 12.3 L (13.0-17.5) gm/dL Hct 37.2 L (39.0-53.0) % MCV 112.5 H (80.0-100.0) fL MCH 37.1 H (25.0-35.0) pg Plt Count 485 H (150-450) k/uL Macrocytosis Marked A Creatinine 0.59 L (0.66-1.25) mg/dL Glucose 154 H (74-99) mg/dL POC Glucose (mg/dL) 182 H (70-110) mg/dL Calcium 7.9 L (8.4-10.2) mg/dL Total Protein 5.6 L (6.3-8.2) g/dL Albumin 3.1 L (3.5-5.0) g/dL Assessment and Plan Assessment: Postop day #2, status post video-assisted left lung resection and mechanical pleurodesis, for recurrent left-sided pneumothorax Routine postoperative ventilator management, S/P extubation on 11/06/2021. History of asthma/COPD. Previous history of tobacco use. History of thrombocythemia. History of BPH. Plan: Plan dated 11/06/2021. The patient will have a daily interruption of sedation, and a spontaneous breathing trial. We'll give the patient another dose of Decadron IV, 6 mg. He apparently was a difficult intubation. We'll await weaning parameters, and a cuff leak test, to make a determination about extubation. We'll follow. Once he leaves the intensive care unit, he can be found by his regular pulmonary doctor. She will recommendations are made. Prognosis is guarded. Plan dated 11/07/2021. The patient was successfully extubated yesterday. Patient remains on 2 L nasal cannula, and saline at 75 mL an hour. Labs, x-rays, and medications are all reviewed. The left chest tube is in place, and is to suction. No obvious pneumothorax is seen. Extensive subcutaneous emphysema is noted over the left chest area. 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 No additional recommendations are made. Prognosis is guarded. Time with Patient: Greater than 30
[2021-11-07 12:00] LABS: Glucose,Whole Blood 205 mg/dL (70-110)
[2021-11-07] MEDS ORDERED: bisacodyL 10 MG SUPP RECTAL PRN (16:28)
[2021-11-07] MEDS ORDERED: MAGNESIUM HYDROXIDE 2,400 MG/10 ML CUP PO PRN (16:28)
[2021-11-07 17:18] LABS: Glucose,Whole Blood 175 mg/dL (70-110)
[2021-11-07] MEDS: SENNOSIDES 8.6 MG TAB NG-TUBE SCH (20:31)
[2021-11-07 21:40] LABS: Glucose,Whole Blood 109 mg/dL (70-110)
[2021-11-08] MEDS: IPRATROPIUM-ALBUTEROL 3 ML NEB INHALATION SCH ×4 (00:36→19:20)
[2021-11-08 06:21] LABS: HCT 39.1 % (39.0-53.0); HGB 12.6 gm/dL (13.0-17.5); MCH 35.9 pg (25.0-35.0); MCHC 32.4 g/dL (31.0-37.0); Mean Platelet Volume 7.4; Platelet Count 517 k/uL (150-450); RBC 3.52 m/uL (4.30-5.90); RDW 12.7 % (11.5-15.5); WBC 8.2 k/uL (3.8-10.6)
[2021-11-08 06:31] LABS: African American GFR (CKD) >90 (>60 ml/min/1.73 sqM); Anion Gap 3 mmol/L; Blood Urea Nitrogen 15 mg/dL (9-20); Calcium 8.2 mg/dL (8.4-10.2); Carbon Dioxide 31 mmol/L (22-30); Chloride 105 mmol/L (98-107); Glucose 107 mg/dL (74-99); Non-African American GFR(CKD) >90 (>60 ml/min/1.73 sqM); Potassium 4.5 mmol/L (3.5-5.1); Sodium 139 mmol/L (137-145)
[2021-11-08 06:33] LABS: Macrocytosis Marked
[2021-11-08 06:54] LABS: Glucose,Whole Blood 105 mg/dL (70-110)
[2021-11-08] MEDS: INSULIN ASPART (NovoLOG) 100 UNIT/ML VIAL SQ SCH ×4 (06:55→21:23)
--- NOTE | 2021-11-08 08:39 | P.PN ---
Subjective Progress Note Date: 11/08/21 Principal diagnosis: Recurrent left-sided basilar pneumothorax with extensive subcutaneous emphysema. Previous medical history of asthma, thrombocythemia, BPH, previous tobacco de pendence POD #3 bronchoscopy, left video-assisted thoracoscopy with left upper lobe wedge resection 2, mechanical pleurodesis The patient was seen and examined this morning sitting up in a recliner in no acute distress eating breakfast. Remains in sinus rhythm and hemodynamically stable. Does complain of some pain at his chest tube site. Maintaining good oxygen saturation and achieving 2500 mL on his incentive spirometry. Left pleural chest tube present with 30 mL serosanguineous drainage in the last 24 hours although he does have some drainage around the chest tube site. There is no air leak, good tidaling is present. Chest tube was placed to waterseal at midnight, chest x-ray shows good reexpansion of the lung. Objective - Vital Signs Vital signs: Vital Signs Temp 97.4 F L 11/07/21 16:00 Pulse 82 11/08/21 07:39 Resp 19 11/07/21 19:00 BP 149/133 11/07/21 19:00 Pulse Ox 93 L 11/07/21 19:00 FiO2 40 11/06/21 09:48 Intake & Output 11/07/21 11/08/21 11/08/21 18:59 06:59 18:59 Intake Total 900 Output Total 0 22 Balance 900 -22 Weight 77.6 kg Intake: IV 900 0.9 900 Output: Chest Tube Drainage 0 22 Left 0 22 Urine 0 Other: Voiding Method Toilet Urinal # Voids 0 1 # Bowel Movements 1 - Exam CONSTITUTIONAL: Appears comfortable, cooperative, no acute distress RESPIRATORY: Lungs sounds diminished bilaterally. Respirations even, nonlabored. Currently on 2 L nasal cannula with oxygen saturation 93%. Able to achieve 2500 mL on his incentive spirometry. Strong cough CARDIOVASCULAR: S1, S2 present. Regular rate and rhythm, sinus rhythm on te lemetry. Palpable peripheral pulses bilaterally. No edema present. No calf pain or tenderness noted. SCDs present. GASTROINTESTINAL: Abdomen soft, nontender, nondistended. Active bowel sounds present 4 quadrants. Tolerating diet GENITOURINARY: [place] discontinued, continues to void INTEGUMENTARY: Skin is warm and dry with evidence of good perfusion. Thoracic incisions well approximated NEUROLOGIC: Cranial nerves II through XII intact MUSKULOSKELETAL: Able to move all extremities, strength equal bilaterally PSYCHIATRIC: Alert and following commands INVASIVE LINES AND TUBES: Left pleural chest tube present to water seal since midnight, no air leak present, 30 mL serosanguineous drainage in the last 24 hours - Allied health notes Allied health notes reviewed: nursing - Labs CBC & Chem 7: 11/08/21 05:50 11/08/21 05:50 Labs: Abnormal Lab Results - Last 24 Hours (Table) 11/07/21 11/07/21 11/07/21 Range/Units 08:01 08:01 11:58 RBC 3.31 L (4.30-5.90) m/uL Hgb 12.3 L (13.0-17.5) gm/dL Hct 37.2 L (39.0-53.0) % MCV 112.5 H (80.0-100.0) fL MCH 37.1 H (25.0-35.0) pg Plt Count 485 H (150-450) k/uL Lymphocytes # 0.6 L (1.0-4.8) k/uL Macrocytosis Marked A Carbon Dioxide (22-30) mmol/L Creatinine 0.59 L (0.66-1.25) mg/dL Glucose 154 H (74-99) mg/dL POC Glucose (mg/dL) 205 H (70-110) mg/dL Calcium 7.9 L (8.4-10.2) mg/dL Total Protein 5.6 L (6.3-8.2) g/dL Albumin 3.1 L (3.5-5.0) g/dL 11/07/21 11/08/21 11/08/21 Range/Units 17:16 05:50 05:50 RBC 3.52 L (4.30-5.90) m/uL Hgb 12.6 L (13.0-17.5) gm/dL Hct (39.0-53.0) % MCV 111.0 H (80.0-100.0) fL MCH 35.9 H (25.0-35.0) pg Plt Count 517 H (150-450) k/uL Lymphocytes # (1.0-4.8) k/uL Macrocytosis Marked A Carbon Dioxide 31 H (22-30) mmol/L Creatinine 0.64 L (0.66-1.25) mg/dL Glucose 107 H (74-99) mg/dL POC Glucose (mg/dL) 175 H (70-110) mg/dL Calcium 8.2 L (8.4-10.2) mg/dL Total Protein (6.3-8.2) g/dL Albumin (3.5-5.0) g/dL - Imaging and Cardiology Chest x-ray: image reviewed Assessment and Plan Assessment: 1. Recurrent left-sided basilar pneumothorax with extensive subcutaneous emphysema, status post bronchoscopy, left video-assisted thoracoscopy with left upper lobe wedge resection 2, mechanical pleurodesis 2. Difficult intubation, maintained on ventilator overnight 3. Asthma 4. Thrombocythemia 5. BPH 6. Previous tobacco dependence Plan: 1. Will discontinue pleural chest tube today 2. Wean O2 as tolerated. Encourage incentive spirometry 10 times every hour while awake. Bronchodilators per pulmonology 3. Increase activity, ambulate as tolerated 4. Pain control with current medication regimen 5. We'll continue to monitor daily labs and x-rays 6. Transfer orders placed yesterday for 3 [facility] cardiac stepdown unit. May transfer when bed available 7. Medical management of other comorbidities per primary care service
--- NOTE | 2021-11-08 08:41 | P.PN ---
Subjective Principal diagnosis: Subcutaneous emphysema The patient is a 68-year-old male with spontaneous pneumothorax several weeks ago with chest tube. As the day after and removed his chest tube stitches, he started developing facial swelling resulted in subcutaneous emphysema. The patient was followed up and is now stabilizing. Less pain Thoracoscopies postop day 3 The patient is now extubated and hemodynamically stable. Objective - Vital Signs Vital signs: Vital Signs Temp 97.4 F L 11/07/21 16:00 Pulse 82 11/08/21 07:39 Resp 19 11/07/21 19:00 BP 149/133 11/07/21 19:00 Pulse Ox 93 L 11/07/21 19:00 FiO2 40 11/06/21 09:48 Intake & Output 11/07/21 11/08/21 11/08/21 18:59 06:59 18:59 Intake Total 900 Output Total 0 22 Balance 900 -22 Weight 77.6 kg Intake: IV 900 0.9 900 Output: Chest Tube Drainage 0 22 Left 0 22 Urine 0 Other: Voiding Method Toilet Urinal # Voids 0 1 # Bowel Movements 1 - Constitutional General appearance: Present: cooperative - EENT Eyes: Absent: abnormal pupil - Neck Neck: Absent: lymphadenopathy - Respiratory Respiratory: bilateral: diminished - Cardiovascular Rhythm: regular Heart sounds: normal: S1, S2 Abnormal Heart Sounds: Absent: S3 Gallop - Gastrointestinal General gastrointestinal: Present: soft. Absent: tenderness - Integumentary Integumentary: Absent: cellulitis - Labs CBC & Chem 7: 11/08/21 05:50 11/08/21 05:50 Labs: Abnormal Lab Results - Last 24 Hours (Table) 11/07/21 11/07/21 11/07/21 Range/Units 08:01 08:01 11:58 RBC 3.31 L (4.30-5.90) m/uL Hgb 12.3 L (13.0-17.5) gm/dL Hct 37.2 L (39.0-53.0) % MCV 112.5 H (80.0-100.0) fL MCH 37.1 H (25.0-35.0) pg Plt Count 485 H (150-450) k/uL Lymphocytes # 0.6 L (1.0-4.8) k/uL Macrocytosis Marked A Carbon Dioxide (22-30) mmol/L Creatinine 0.59 L (0.66-1.25) mg/dL Glucose 154 H (74-99) mg/dL POC Glucose (mg/dL) 205 H (70-110) mg/dL Calcium 7.9 L (8.4-10.2) mg/dL Total Protein 5.6 L (6.3-8.2) g/dL Albumin 3.1 L (3.5-5.0) g/dL 11/07/21 11/08/21 11/08/21 Range/Units 17:16 05:50 05:50 RBC 3.52 L (4.30-5.90) m/uL Hgb 12.6 L (13.0-17.5) gm/dL Hct (39.0-53.0) % MCV 111.0 H (80.0-100.0) fL MCH 35.9 H (25.0-35.0) pg Plt Count 517 H (150-450) k/uL Lymphocytes # (1.0-4.8) k/uL Macrocytosis Marked A Carbon Dioxide 31 H (22-30) mmol/L Creatinine 0.64 L (0.66-1.25) mg/dL Glucose 107 H (74-99) mg/dL POC Glucose (mg/dL) 175 H (70-110) mg/dL Calcium 8.2 L (8.4-10.2) mg/dL Total Protein (6.3-8.2) g/dL Albumin (3.5-5.0) g/dL Assessment and Plan (1) Subcutaneous emphysema Current Visit: Yes Status: Acute Code(s): T79.7XXA - TRAUMATIC SUBCUTANEOUS EMPHYSEMA, INITIAL ENCOUNTER SNOMED Code(s): 6017475 Plan: The patient is status post thoracoscopy with pleurodesis. Anticipate transfer to general medical floor. Continue bronchodilators. Patient seems very stable today. Otherwise, chest tube to be removed today.
[2021-11-08] MEDS: PANTOPRAZOLE 40 MG/10 ML VIAL IV SCH (09:47)
[2021-11-08] MEDS: HEPARIN SODIUM,PORCINE/PF 5,000 UNIT/0.5 ML SYRINGE SQ SCH ×3 (09:47→23:08)
[2021-11-08] MEDS: TAMSULOSIN 0.4 MG CAP.ER.24H PO SCH (09:47)
[2021-11-08] MEDS: HYDROXYUREA 500 MG CAP PO SCH ×2 (09:48→20:44)
--- NOTE | 2021-11-08 10:23 | XR ---
EXAMINATION TYPE: XR chest 1V portable DATE OF EXAM: 11/08/2021 HISTORY: pneumothorax after clamping CT COMPARISON: 11/08/21 TECHNIQUE: Single view of the chest is submitted. FINDINGS: Left-sided chest tube is again noted with its tip within the left apical region. There appears to be less than 10% pneumothorax left apical region. There is subcutaneous emphysema overlying the left emmie st wall and neck. The right lung is clear. The heart is stable. Hilar and mediastinal structures are within normal limits. Degenerative changes are seen of the dorsal spine. IMPRESSION: 1. Left-sided chest tube is again noted with its tip within the left apical region. There appears to be less than 10% pneumothorax left apical region. There is subcutaneous emphysema overlying the left chest wall and neck.
[2021-11-08 11:03] VITALS: BMI 24.5
[2021-11-08 11:16] LABS: Glucose,Whole Blood 133 mg/dL (70-110)
[2021-11-08] MEDS: ALPRAZolam 0.5 MG TAB PO PRN ×2 (12:27→20:44)
--- NOTE | 2021-11-08 15:35 | XR ---
EXAMINATION TYPE: XR chest 2V DATE OF EXAM: 11/08/2021 COMPARISON: 11/07/2021 HISTORY: Shortness of breath TECHNIQUE: Frontal and lateral views of the chest are obtained. FINDINGS: Left-sided chest tube identified without visible sizable pneumothorax. There is overlying subcutaneou s emphysema overlying the chest wall extending into the neck. The right lung is clear. No evidence for infiltrate. No evidence for atelectasis. Heart size is stable. Mediastinal structures are stable and grossly unremarkable. No evidence for hilar prominence. Degenerative changes dorsal spine. IMPRESSION: 1. Left-sided chest tube identified without visible sizable pneumothorax. There is overlying subcutan eous emphysema overlying the chest wall extending into the neck.
[2021-11-08 16:47] LABS: Glucose,Whole Blood 168 mg/dL (70-110)
[2021-11-08] MEDS: ACETAMINOPHEN TAB 325 MG TAB PO PRN (18:53)
[2021-11-08] MEDS: SENNOSIDES 8.6 MG TAB NG-TUBE SCH (20:45)
[2021-11-08 20:51] LABS: Glucose,Whole Blood 134 mg/dL (70-110)
[2021-11-09] MEDS: IPRATROPIUM-ALBUTEROL 3 ML NEB INHALATION SCH ×6 (01:34→23:28)
[2021-11-09] MEDS: ALPRAZolam 0.5 MG TAB PO PRN ×3 (03:16→21:10)
[2021-11-09 06:11] LABS: Glucose,Whole Blood 130 mg/dL (70-110)
[2021-11-09] MEDS: INSULIN ASPART (NovoLOG) 100 UNIT/ML VIAL SQ SCH ×4 (06:11→20:37)
--- NOTE | 2021-11-09 08:15 | XR ---
EXAMINATION TYPE: XR chest 2V DATE OF EXAM: 11/09/2021 COMPARISON: 11/08/2021 HISTORY: Pneumothorax TECHNIQUE: Frontal and lateral views of the chest are obtained. FINDINGS: Left-sided chest tube is unchanged in position. Previously noted pneumothorax is not well seen on wilder okeefe's study. Continued subcutaneous emphysema along the chest wall extending into the neck. The right lung demonstrates linear atelectasis. Heart size is stable. Mediastinal structures are stable and grossly unremarkable. No evidence for hilar prominence. Degenerative changes dorsal spine. IMPRESSION: 1. Left-sided chest tube is unchanged in position. Previously noted pneumothorax is not well seen on today's study. Continued subcutaneous emphysema along the chest wall extending into the neck.
--- NOTE | 2021-11-09 08:18 | P.PN ---
Subjective Progress Note Date: 11/09/21 Principal diagnosis: Recurrent left-sided basilar pneumothorax with extensive subcutaneous emphysema. Previous medical history of asthma, thrombocythemia, BPH, previous tobacco de pendence POD #4 bronchoscopy, left video-assisted thoracoscopy with left upper lobe wedge resection 2, mechanical pleurodesis The patient was seen and examined this morning sitting up in a recliner in no acute distress eating breakfast. Remains in sinus rhythm and hemodynamically stable. Does complain of some pain at his chest tube site. Maintaining good oxygen saturation and achieving 2500 mL on his incentive spirometry. Left pleural chest tube present with 50 mL serosanguineous drainage in the last 24 hours although he does have some drainage around the chest tube site. Plan was to remove chest tube yesterday, however upon second evaluation there was noted air bubbles so chest tube was left in placed to waterseal for another 24 hours just to be safe. This morning chest x-ray shows good reexpansion and there is no air leak present. Objective - Vital Signs Vital signs: Vital Signs Temp 98.4 F 11/09/21 03:22 Pulse 103 H 11/09/21 03:22 Resp 19 11/09/21 03:22 BP 112/76 11/09/21 03:22 Pulse Ox 94 L 11/09/21 03:22 FiO2 40 11/06/21 09:48 Intake & Output 11/08/21 11/09/21 11/09/21 18:59 06:59 18:59 Intake Total 240 Output Total 200 Balance 40 Weight 77.6 kg Intake: Oral 240 Output: Urine 200 Other: Voiding Method Toilet Toilet Urinal Urinal # Voids 1 - Exam CONSTITUTIONAL: Appears comfortable, cooperative, no acute distress RESPIRATORY: Lungs sounds diminished bilaterally. Respirations even, nonlabored. Currently on room air with oxygen saturation 94%. Able to achieve 2500 mL on his incentive spirometry. Strong cough CARDIOVASCULAR: S1, S2 present. Regular rate and rhythm, sinus rhythm on telemetry. Palpable peripheral pulses bilaterally. No edema present. No calf pain or tenderness noted. SCDs present. GASTROINTESTINAL: Abdomen soft, nontender, nondistended. Active bowel sounds present 4 quadrants. Tolerating diet GENITOURINARY: Continues to void INTEGUMENTARY: Skin is warm and dry with evidence of good perfusion. Thoracic incisions well approximated NEUROLOGIC: Cranial nerves II through XII intact MUSKULOSKELETAL: Able to move all extremities, strength equal bilaterally PSYCHIATRIC: Alert and following commands INVASIVE LINES AND TUBES: Left pleural chest tube present to water seal, no air leak present, 50 mL serosanguineous drainage in the last 24 hours - Allied health notes Allied health notes reviewed: nursing - Labs CBC & Chem 7: 11/08/21 05:50 11/08/21 05:50 Labs: Abnormal Lab Results - Last 24 Hours (Table) 11/08/21 11/08/21 11/08/21 Range/Units 11:05 16:45 20:50 POC Glucose (mg/dL) 133 H 168 H 134 H (70-110) mg/dL 11/09/21 Range/Units 05:50 POC Glucose (mg/dL) 130 H (70-110) mg/dL - Imaging and Cardiology Chest x-ray: image reviewed Assessment and Plan Assessment: 1. Recurrent left-sided basilar pneumothorax with extensive subcutaneous emphysema, status post bronchoscopy, left video-assisted thoracoscopy with left upper lobe wedge resection 2, mechanical pleurodesis 2. Difficult intubation, maintained on ventilator overnight 3. Asthma 4. Thrombocythemia 5. BPH 6. Previous tobacco dependence Plan: 1. Will discontinue pleural chest tube today 2. Encourage incentive spirometry 10 times every hour while awake. Bronchodilators per pulmonology 3. Increase activity, ambulate as tolerated 4. Pain control with current medication regimen 5. Repeat chest x-ray in the a.m. If stable may be discharged home from our standpoint when okay with other services 6. Medical management of other comorbidities per primary care service
[2021-11-09] MEDS: ACETAMINOPHEN TAB 325 MG TAB PO PRN ×3 (08:46→21:10)
[2021-11-09] MEDS: TAMSULOSIN 0.4 MG CAP.ER.24H PO SCH (08:47)
[2021-11-09] MEDS: HEPARIN SODIUM,PORCINE/PF 5,000 UNIT/0.5 ML SYRINGE SQ SCH ×3 (08:47→23:33)
[2021-11-09] MEDS: PANTOPRAZOLE 40 MG/10 ML VIAL IV SCH (08:47)
[2021-11-09] MEDS: HYDROXYUREA 500 MG CAP PO SCH ×2 (08:48→21:10)
[2021-11-09] MEDS ORDERED: IPRATROPIUM-ALBUTEROL 3 ML NEB INHALATION PRN (09:21)
[2021-11-09 12:01] LABS: Glucose,Whole Blood 155 mg/dL (70-110)
[2021-11-09 16:11] LABS: Glucose,Whole Blood 152 mg/dL (70-110)
--- NOTE | 2021-11-09 18:34 | P.PN ---
Subjective This is a pleasant 71 years old male with past medical history of asthma, presents with left sided pneumothorax and subcutaneous emphysema, he was treated in the ICU and then transferred to the general medical floor, he is improving gradually, his status post mechanical pleurodesis by surgery team. Today he was improving and left chest tube was taken off the at the patient still little bit tachypneic when talking especially with exertion. However significant difficulty breathing He denies chest pain He has some chest pain with coughing only. He mechanical clear phlegm. He denies any GI, urinary or neurological symptoms. He denies smoking, illicit drugs, he is alcohol occasionally. Objective - Vital Signs Vital signs: Vital Signs Temp 98.0 F 11/09/21 12:00 Pulse 84 11/09/21 13:12 Resp 20 11/09/21 12:00 BP 92/66 11/09/21 12:00 Pulse Ox 97 11/09/21 12:00 FiO2 40 11/06/21 09:48 Intake & Output 11/08/21 11/09/21 11/09/21 18:59 06:59 18:59 Intake Total 240 240 Output Total 200 Balance 40 240 Weight 77.6 kg Intake: Oral 240 240 Output: Urine 200 Other: Voiding Method Toilet Toilet Toilet Urinal Urinal Urinal # Voids 1 1 - Exam GENERAL: The patient is alert and oriented x3, not in any acute distress. Well developed, well nourished. HEENT: Pupils are round and equally reacting to light. EOMI. No scleral icterus. No conjunctival pallor. Normocephalic, atraumatic. No pharyngeal erythema. No thyromegaly. CARDIOVASCULAR: S1 and S2 present. No murmurs, rubs, or gallops. PULMONARY: Chest is clear to auscultation, no wheezing or crepitation ABDOMEN: Soft, nontender, nondistended, normoactive bowel sounds. No palpable organomegaly. MUSCULOSKELETAL: No joint swelling or deformity. EXTREMITIES: No cyanosis, clubbing, or pedal edema. NEUROLOGICAL: Gross neurological examination did not reveal any focal deficits. -SKIN: No rashes. no petechiae. Upper tract subcutaneous emphysema - Labs CBC & Chem 7: 11/08/21 05:50 11/08/21 05:50 Labs: Abnormal Lab Results - Last 24 Hours (Table) 11/08/21 11/08/21 11/09/21 Range/Units 16:45 20:50 05:50 POC Glucose (mg/dL) 168 H 134 H 130 H (70-110) mg/dL 11/09/21 Range/Units 11:59 POC Glucose (mg/dL) 155 H (70-110) mg/dL Assessment and Plan Assessment: Left sided pneumothorax status post chest tube placement and removal Subcutaneous emphysema Pulmonary and cardiothoracic surgery on the case Labs and medication were reviewed.. Continue same treatment. Continue with symptomatic treatment. Resume home medication. Monitor lytes and vitals. DVT and GI prophylaxis. Further recommendations as per clinical course of the patient DVT prophylaxis: Subcutaneous heparin GI Prophylaxis: Pepcid PT/OT: Pending Prognosis is guarded Plan: This is a pleasant 71 years old male with left pneumothorax Chest tube was removed To be just x-ray in the morning, per surgery team Pulmonary team also following the patient. Labs and medication were reviewed.. Continue same treatment. Continue with symptomatic treatment. Resume home medication. Monitor lytes and vitals. DVT and GI prophylaxis. Further recommendations as per clinical course of the patient DVT prophylaxis: Subcutaneous heparin GI Prophylaxis: Ppi
[2021-11-09 20:50] LABS: Glucose,Whole Blood 121 mg/dL (70-110)
[2021-11-09] MEDS: SENNOSIDES 8.6 MG TAB NG-TUBE SCH (21:10)
[2021-11-10] MEDS: IPRATROPIUM-ALBUTEROL 3 ML NEB INHALATION SCH ×6 (03:34→23:36)
[2021-11-10] MEDS: INSULIN ASPART (NovoLOG) 100 UNIT/ML VIAL SQ SCH ×5 (06:33→20:38)
[2021-11-10 06:58] LABS: Glucose,Whole Blood 130 mg/dL (70-110)
--- NOTE | 2021-11-10 08:54 | XR ---
EXAMINATION TYPE: XR chest 2V DATE OF EXAM: 11/10/2021 COMPARISON: 11/09/2021 HISTORY: Interval removal of left-sided chest tube TECHNIQUE: Frontal and lateral views of the chest are obtained. FINDINGS: There has been interval removal of left-sided chest tube. Pneumothorax is noted estimated at 15%. Per sistent subcutaneous emphysema along the left chest wall and extending into the neck. The right lung is clear. Heart size is stable. Mediastinal structures are stable and grossly unremarkable. No evidence for hilar prominence. Degenerative changes dorsal spine. IMPRESSION: 1. There has been interval removal of left-sided chest tube. Pneumothorax is noted estimated at 15%. Persistent subcutaneous emphysema along the left chest wall and extending into the neck.
[2021-11-10] MEDS: HYDROXYUREA 500 MG CAP PO SCH ×2 (09:11→20:57)
[2021-11-10] MEDS: HEPARIN SODIUM,PORCINE/PF 5,000 UNIT/0.5 ML SYRINGE SQ SCH ×3 (09:11→23:56)
[2021-11-10] MEDS: PANTOPRAZOLE 40 MG/10 ML VIAL IV SCH (09:11)
[2021-11-10] MEDS: TAMSULOSIN 0.4 MG CAP.ER.24H PO SCH (09:11)
[2021-11-10] MEDS: ALPRAZolam 0.5 MG TAB PO PRN ×2 (09:18→21:01)
--- NOTE | 2021-11-10 09:51 | P.PN ---
Subjective Progress Note Date: 11/10/21 Principal diagnosis: Recurrent left-sided basilar pneumothorax with extensive subcutaneous emphysema. Previous medical history of asthma, thrombocythemia, BPH, previous tobacco de pendence POD #5 bronchoscopy, left video-assisted thoracoscopy with left upper lobe wedge resection 2, mechanical pleurodesis The patient was seen and examined this morning sitting up in a recliner in no acute distress eating breakfast. Remains in sinus rhythm and hemodynamically stable. Maintaining good oxygen saturation on room air and achieving 3000 mL on his incentive spirometry. Left pleural chest tube discontinued yesterday without incident. This morning chest x-ray shows small pneumothorax which is acceptable Objective - Vital Signs Vital signs: Vital Signs Temp 98.0 F 11/10/21 04:00 Pulse 78 11/10/21 07:55 Resp 16 11/10/21 04:00 BP 101/72 11/10/21 04:00 Pulse Ox 95 11/10/21 04:00 FiO2 21 11/09/21 19:00 Intake & Output 11/09/21 11/10/21 11/10/21 18:59 06:59 18:59 Intake Total 480 358 240 Balance 480 358 240 Intake: Oral 480 358 240 Other: Voiding Method Toilet Toilet Urinal Urinal # Voids 1 2 # Bowel Movements 1 - Exam CONSTITUTIONAL: Appears comfortable, cooperative, no acute distress RESPIRATORY: Lungs sounds diminished bilaterally. Respirations even, nonlabored. Currently on room air with oxygen saturation 95%. Able to achieve 3000 mL on his incentive spirometry. Strong cough CARDIOVASCULAR: S1, S2 present. Regular rate and rhythm, sinus rhythm on telemetry. Palpable peripheral pulses bilaterally. No edema present. No calf pain or tenderness noted. SCDs present. GASTROINTESTINAL: Abdomen soft, nontender, nondistended. Active bowel sounds present 4 quadrants. Tolerating diet GENITOURINARY: Continues to void INTEGUMENTARY: Skin is warm. Thoracic incisions well approximated NEUROLOGIC: Cranial nerves II through XII intact MUSKULOSKELETAL: Able to move all extremities, strength equal bilaterally PSYCHIATRIC: Alert and following commands - Allied health notes Allied health notes reviewed: nursing - Labs CBC & Chem 7: 11/08/21 05:50 11/08/21 05:50 Labs: Abnormal Lab Results - Last 24 Hours (Table) 11/09/21 11/09/21 11/09/21 Range/Units 11:59 16:10 20:21 POC Glucose (mg/dL) 155 H 152 H 121 H (70-110) mg/dL 11/10/21 Range/Units 06:16 POC Glucose (mg/dL) 130 H (70-110) mg/dL - Imaging and Cardiology Chest x-ray: report reviewed, image reviewed Assessment and Plan Assessment: 1. Recurrent left-sided basilar pneumothorax with extensive subcutaneous emphysema, status post bronchoscopy, left video-assisted thoracoscopy with left upper lobe wedge resection 2, mechanical pleurodesis 2. Difficult intubation, maintained on ventilator overnight 3. Asthma 4. Thrombocythemia 5. BPH 6. Previous tobacco dependence Plan: 1. Chest x-ray reviewed and discussed with Dr. Nur. Patient may be discharged to home from our standpoint 2. Encourage incentive spirometry 10 times every hour while awake. Bronchodilators per pulmonology 3. Increase activity, ambulate as tolerated 4. Pain control with current medication regimen 5. Patient to obtain 2V chest x-ray , 11/14/2021, Rx given to patient, will see in the office after chest x-ray completed 6. Medical management of other comorbidities per primary care service
--- NOTE | 2021-11-10 11:32 | XR ---
EXAMINATION TYPE: XR KUB DATE OF EXAM: 11/10/2021 COMPARISON: NONE HISTORY: Pain TECHNIQUE: Single supine KUB image of the abdomen is obtained FINDINGS: Small bowel demonstrates no evidence for dilatation or air fluid levels. Gas and fecal material is seen in non-distended colon. No convincing evidence for pneumoperitoneum. No unusual calcifications. The lung bases are clear. The osseous structures are intact. IMPRESSION: 1. Overall nonobstructive bowel gas pattern.
[2021-11-10 11:38] LABS: Glucose,Whole Blood 107 mg/dL (70-110)
[2021-11-10 13:22] LABS: Basophils # (A) 0.2 k/uL (0-0.2); Basophils % (A) 2 %; Eosinophils # (A) 0.5 k/uL (0-0.7); Eosinophils % (A) 6 %; HCT 43.8 % (39.0-53.0); HGB 14.2 gm/dL (13.0-17.5); Lymphocytes # (A) 1.4 k/uL (1.0-4.8); Lymphocytes % (A) 16 %; MCH 35.8 pg (25.0-35.0); MCHC 32.3 g/dL (31.0-37.0); MCV 110.7 fL (80.0-100.0); Macrocytosis Marked; Mean Platelet Volume 7.2; Monocytes # (A) 0.5 k/uL (0-1.0); Monocytes % (A) 6 %; Neutrophils % (A) 69 %; Platelet Count 501 k/uL (150-450); RBC 3.96 m/uL (4.30-5.90); RDW 12.8 % (11.5-15.5); WBC 8.6 k/uL (3.8-10.6)
[2021-11-10 13:34] LABS: African American GFR (CKD) >90 (>60 ml/min/1.73 sqM); Anion Gap 6 mmol/L; Blood Urea Nitrogen 16 mg/dL (9-20); Calcium 8.5 mg/dL (8.4-10.2); Carbon Dioxide 27 mmol/L (22-30); Chloride 101 mmol/L (98-107); Glucose 142 mg/dL (74-99); Magnesium 1.8 mg/dL (1.6-2.3); Non-African American GFR(CKD) >90 (>60 ml/min/1.73 sqM); Potassium 4.6 mmol/L (3.5-5.1); Sodium 134 mmol/L (137-145)
[2021-11-10 16:24] LABS: Glucose,Whole Blood 160 mg/dL (70-110)
[2021-11-10 20:20] LABS: Glucose,Whole Blood 105 mg/dL (70-110)
--- NOTE | 2021-11-10 20:43 | P.PN ---
Subjective This is a pleasant 71 years old male with past medical history of asthma, presents with left sided pneumothorax and subcutaneous emphysema, he was treated in the ICU and then transferred to the general medical floor, he is improving gradually, his status post mechanical pleurodesis by surgery team. Today he was improving and left chest tube was taken off the at the patient still little bit tachypneic when talking especially with exertion. However significant difficulty breathing He denies chest pain He has some chest pain with coughing only. He mechanical clear phlegm. He denies any GI, urinary or neurological symptoms. He denies smoking, illicit drugs, he is alcohol occasionally. 11/10/2021 Patient today chest tube on the left side was removed and repeat chest x-ray was obtained showing improvement. Patient was cleared by cardiothoracic surgery team Patient has some abdominal distention so KUB was obtained Dr. Worley turkish line attendant to see the patient No nausea vomiting, good bowel movement. Possible discharge in 24-48 hours if he keeps improving Objective - Vital Signs Vital signs: Vital Signs Temp 97.8 F 11/10/21 12:00 Pulse 80 11/10/21 16:20 Resp 18 11/10/21 14:00 BP 108/72 11/10/21 12:00 Pulse Ox 92 L 11/10/21 12:00 FiO2 21 11/09/21 19:00 Intake & Output 11/10/21 11/10/21 11/11/21 06:59 18:59 06:59 Intake Total 358 720 Balance 358 720 Intake: Oral 358 720 Other: Voiding Method Toilet Toilet Urinal Urinal # Voids 2 - Exam GENERAL: The patient is alert and oriented x3, not in any acute distress. Well developed, well nourished. HEENT: Pupils are round and equally reacting to light. EOMI. No scleral icterus. No conjunctival pallor. Normocephalic, atraumatic. No pharyngeal erythema. No thyromegaly. CARDIOVASCULAR: S1 and S2 present. No murmurs, rubs, or gallops. PULMONARY: Chest is clear to auscultation, no wheezing or crepitation ABDOMEN: Soft, nontender, nondistended, normoactive bowel sounds. No palpable organomegaly. MUSCULOSKELETAL: No joint swelling or deformity. EXTREMITIES: No cyanosis, clubbing, or pedal edema. NEUROLOGICAL: Gross neurological examination did not reveal any focal deficits. -SKIN: No rashes. no petechiae. Upper tract subcutaneous emphysema - Labs CBC & Chem 7: 11/10/21 13:10 11/10/21 13:10 Labs: Abnormal Lab Results - Last 24 Hours (Table) 11/09/21 11/10/21 11/10/21 Range/Units 20:21 06:16 13:10 RBC 3.96 L (4.30-5.90) m/uL MCV 110.7 H (80.0-100.0) fL MCH 35.8 H (25.0-35.0) pg Plt Count 501 H (150-450) k/uL Macrocytosis Marked A Sodium (137-145) mmol/L Creatinine (0.66-1.25) mg/dL Glucose (74-99) mg/dL POC Glucose (mg/dL) 121 H 130 H (70-110) mg/dL 11/10/21 11/10/21 Range/Units 13:10 16:20 RBC (4.30-5.90) m/uL MCV (80.0-100.0) fL MCH (25.0-35.0) pg Plt Count (150-450) k/uL Macrocytosis Sodium 134 L (137-145) mmol/L Creatinine 0.56 L (0.66-1.25) mg/dL Glucose 142 H (74-99) mg/dL POC Glucose (mg/dL) 160 H (70-110) mg/dL Assessment and Plan Assessment: Left sided pneumothorax status post chest tube placement and removal Subcutaneous emphysema Pulmonary and cardiothoracic surgery on the case Labs and medication were reviewed.. Continue same treatment. Continue with symptomatic treatment. Resume home medication. Monitor lytes and vitals. DVT and GI prophylaxis. Further recommendations as per clinical course of the p atient DVT prophylaxis: Subcutaneous heparin GI Prophylaxis: Pepcid PT/OT: Pending Prognosis is guarded Plan: This is a pleasant 71 years old male with left pneumothorax Chest tube was removed Ordered KUB Pulmonary team also following the patient. Labs and medication were reviewed.. Continue same treatment. Continue with symptomatic treatment. Resume home medication. Monitor lytes and vitals. DVT and GI prophylaxis. Further recommendations as per clinical course of the patient DVT prophylaxis: Subcutaneous heparin GI Prophylaxis: Ppi Discussed plan with patient and at bedside and they are in agreement
[2021-11-10] MEDS: SENNOSIDES 8.6 MG TAB NG-TUBE SCH (20:57)
[2021-11-10] MEDS: ACETAMINOPHEN TAB 325 MG TAB PO PRN (21:01)
[2021-11-11] MEDS: IPRATROPIUM-ALBUTEROL 3 ML NEB INHALATION SCH ×2 (03:23→07:36)
[2021-11-11] MEDS: ACETAMINOPHEN TAB 325 MG TAB PO PRN (04:17)
[2021-11-11 06:11] LABS: Glucose,Whole Blood 125 mg/dL (70-110)
[2021-11-11] MEDS: INSULIN ASPART (NovoLOG) 100 UNIT/ML VIAL SQ SCH (06:20)
[2021-11-11] MEDS: HEPARIN SODIUM,PORCINE/PF 5,000 UNIT/0.5 ML SYRINGE SQ SCH (07:54)
[2021-11-11] MEDS: TAMSULOSIN 0.4 MG CAP.ER.24H PO SCH (07:55)
[2021-11-11] MEDS: HYDROXYUREA 500 MG CAP PO SCH (07:55)
[2021-11-11] MEDS: PANTOPRAZOLE 40 MG/10 ML VIAL IV SCH (07:55)
[2021-11-11] MEDS: ALPRAZolam 0.5 MG TAB PO PRN (08:03)
[2021-11-11 08:58] VITALS: BP 126/79; PULSE 93; RESP 20; TEMP 97.6
--- NOTE | 2021-11-11 09:28 | P.DS ---
Providers Date of admission: 11/03/21 21:29 Attending physician: Elan Barclay Consults: 11/03/21 21:28 Consult Physician Stat Consulting Provider: Chandler Worley Consult Reason/Comments: Subcutaneous emphysema, left-sided pneumothorax Do you want consulting provider notified?: Already Contacted Consult Physician Urgent Consulting Provider: Simeon Norris Consult Reason/Comments: Subcutaneous emphysema, left sided pneumothorax Do you want consulting provider notified?: Already Contacted 11/10/21 11:09 Consult Physician Urgent Consulting Provider: Chandler Worley Consult Reason/Comments: copd Do you want consulting provider notified?: Yes Primary care physician: Elan Barclay - Discharge Diagnosis(es) (1) Subcutaneous emphysema Current Visit: Yes Status: Acute Hospital Course: This is a discharge summary 71-year-old male admitted for pneumothorax. The patient had crepitus extending into the face due to air leak. This was stabilized and then the patient ended up having thoracoscopy with wedge resection and repair. The patient tolerated the procedure well as an underlying history of COPD and asthma which is stable. He is ambulating tolerating diet without difficulty and no respiratory distress on discharge. No voiding difficulties and the patient will follow-up with me in about 5-7 days. Patient Condition at Discharge: Stable Plan - Discharge Summary Discharge Rx Participant: No New Discharge Prescriptions: Continue Ipratropium/Albuter 20-100Mcg [Combivent Respimat 20-100Mcg Inhaler] 1 puff INHALATION RT-QID Hydroxyurea [Hydrea] 500 mg PO BID ALPRAZolam [Xanax] 0.5 mg PO TID PRN PRN Reason: Anxiety Tamsulosin HCl [Flomax] 0.8 mg PO DAILY methocarbamoL [Robaxin-750] 750 mg PO QID PRN #60 tab PRN Reason: Muscle Spasm Discharge Medication List ALPRAZolam [Xanax] 0.5 mg PO TID PRN 10/12/21 [History] Hydroxyurea [Hydrea] 500 mg PO BID 10/12/21 [History] Ipratropium/Albuter 20-100Mcg [Combivent Respimat 20-100Mcg Inhaler] 1 puff INHALATION RT-QID 10/12/21 [History] Tamsulosin HCl [Flomax] 0.8 mg PO DAILY 10/12/21 [History] methocarbamoL [Robaxin-750] 750 mg PO QID PRN #60 tab 10/16/21 [Rx] Follow up Appointment(s)/Referral(s): Aziza Ospina, SAGE [Nurse Practitioner] - 11/14/21 1:00 pm ([facility], [address] ) Elan Barclay MD [Primary Care Provider] - 1-2 days Chandler Worley MD [STAFF PHYSICIAN] - 1 Week Ambulatory/Diagnostic Orders: XR chest 2V [RAD.AMB] Time Frame: 11/14/21, Facility: [facility], Location: Rad Xray [facility] Activity/Diet/Wound Care/Special Instructions: DISCHARGE INSTRUCTIONS: 1. No driving for 2 weeks, or until physician gives their ok. 2. No lifting, pushing, or pulling more than 10 pounds for 2 weeks. The physician will advise of any restriction changes. 3. Continue pain control per as needed orders. Alternate acetaminophen (Tylenol) and ibuprofen (Motrin/Advil) for pain. 4. Continue with incentive spirometry and splinting until otherwise directed by the physician. 5. Remove all dressings and shower daily. May continue to replace dressings as long as chest tube site is draining 6. Routine incision care. No powders, lotions, ointments on incisions. 7. Please call surgeon/RING PACKER for temp greater than 101 F or purulent drainage from incisions.
== END 2021-11-11 10:50 | disposition home or self-care (01) | DRG 164 ==
LOC: EC 18:34 → 3SCARD 21:29 → 2SICU 11-05 17:19 → 3SCARD 11-08 23:41
PROVIDERS: ADMIT Family Medicine; ATTEND Family Medicine
PROC: 0W9B30Z Drainage of Left Pleural Cavity with Drainage Device, Percutaneous Approach (ICD-10-PCS; principal; 2021-11-05 13:15)
PROC: 0B5P4ZZ Destruction of Left Pleura, Percutaneous Endoscopic Approach (ICD-10-PCS; principal; 2021-11-05 13:15)
PROC: 0BJ08ZZ Inspection of Tracheobronchial Tree, Via Natural or Artificial Opening Endoscopic (ICD-10-PCS; principal; 2021-11-05 13:15)
PROC: 0BB84ZX Excision of Left Upper Lobe Bronchus, Percutaneous Endoscopic Approach, Diagnostic (ICD-10-PCS; principal; 2021-11-05 13:15)
DX: J93.83 Other pneumothorax (principal); T79.7XXA Traumatic subcutaneous emphysema, initial encounter; Z87.891 Personal history of nicotine dependence; J44.9 Chronic obstructive pulmonary disease, unspecified; E86.0 Dehydration; R00.0 Tachycardia, unspecified; D69.6 Thrombocytopenia, unspecified; F41.9 Anxiety disorder, unspecified; J93.82 Other air leak; N40.0 Benign prostatic hyperplasia without lower urinary tract symptoms; T88.4XXA Failed or difficult intubation, initial encounter; Z79.899 Other long term (current) drug therapy; Z82.49 Family history of ischemic heart disease and other diseases of the circulatory system
CPT/HCPCS: 36415; 36600; 70490; 71045; 71046; 71250; 74018; 80048; 80053; 82550; 82553; 82805; 83735; 84484; 85025; 85027; 86850; 86900; 86901; 88307; 94002; 94003; 94640; 94760; 99285

== ENCOUNTER → 2021-11-14 | Outpatient (CLI) | payer MEDICARE ==
--- NOTE | 2021-11-15 22:03 | XR ---
EXAMINATION TYPE: XR chest 2V DATE OF EXAM: 11/14/2021 COMPARISON: X-ray dated 11/10/2021 HISTORY: Pneumothorax TECHNIQUE: Frontal and lateral views of the chest are obtained. FINDINGS: Interval improvement of the previously seen extensive left chest wall soft tissue emphysema yet still appreciated. Suspected left apical small pneumothorax measuring up to 3 cm compared to 3.4 cm previo usly. Unremarkable remainder of the lungs. No sizable pleural effusion or right-sided pneumothorax. No card iomegaly. Mild degenerative changes of the midthoracic spine. IMPRESSION: Interval changes as described above.
== END | disposition home or self-care (01) ==
LOC: RADXRMAIN 12:16
PROVIDERS: ATTEND Nurse Practitioner Acute Care
DX: J93.9 Pneumothorax, unspecified (principal)
CPT/HCPCS: 71046

== ENCOUNTER → 2022-11-11 | Outpatient (CLI) | payer MEDICARE ==
--- NOTE | 2022-11-11 08:56 | US ---
EXAMINATION TYPE: US abdomen complete DATE OF EXAM: 11/11/2022 COMPARISON: 11/08/2021 radiograph CLINICAL INDICATION: Male, 72 years old with history of R21.00 ESOPHAGEAL REFLUX; Reflux TECHNIQUE: Multiple sonographic images of the abdomen are obtained. FINDINGS: EXAM MEASUREMENTS: Liver Length: 15.4 cm Gallbladder Wall: 0.2 cm CBD: 0.3 cm Spleen: 8.5 cm Right Kidney: 12.1 x 5.1 x 6.2 cm Left Kidney: 11.7 x 5.5 x 5.5 cm Pancreas: wnl, tail obscured by overlying bowel gas Liver: wnl Gallbladder: Lumen filled with gallstones Evidence for sonographic Ramirez's sign: No CBD: wnl Spleen: wnl Right Kidney: Possible parapelvic cystic lesion= 2.3 x 2.1 x 2.8 cm Left Kidney: Possible parapelvic cystic lesion= 2.1 x 1.9 x 1.7 cm Upper IVC: wnl Abd Aorta: AAA distal= 3.1 x 3.5 cm IMPRESSION: 1. No evidence for acute process. 2. Bilateral renal cysts.
== END | disposition home or self-care (01) ==
LOC: RADUSWWP 07:21
PROVIDERS: ATTEND Family Medicine
DX: K21.00 Gastro-esophageal reflux disease with esophagitis, without bleeding (principal); N28.1 Cyst of kidney, acquired
CPT/HCPCS: 76700